=== PATIENT | male | born 1930 | race Caucasian/White ===

== ENCOUNTER 2016-09-28 12:09 | Observation (INO) ==
--- NOTE | 2016-09-28 12:40 | Emergency Department Note ---
Disposition Clinical Impression: Lumbar back pain Qualifiers: Chronicity: chronic Back pain laterality: midline Sciatica presence: without sciatica Qualified Code(s): M54.5 - Low back pain Disposition: Admitted As Inpatient Condition: Good Back Pain HPI - General Chief Complaint: ED Back Pain/Injury Stated Complaint: increased back pain Time Seen by Provider: 09/28/16 12:15 Source: patient, family Mode of arrival: ambulatory Limitations: no limitations Nursing Notes Reviewed: Yes Vital Signs Reviewed: Yes - History of Present Illness HPI Narrative: 86-year-old male with history of low back pain, hypertension, hyperlipidemia presents for evaluation of acute on chronic back pain. Patient states that he has surgery scheduled this Wednesday. Notes the pain is worsened and he cannot perform his activities daily living at home with his current pain management. Patient states that he has been taking Percocet 5 mg every 6 hours to help with his pain. Patient now requires to ambulate with the assistance of a walker. Patient states he also has been crawling around his house in order to try and cope with the pain. Patient states that the pain has worsened because he has been more active recently. Patient denies any numbness or tingling of his lower legs. Denies any chest measures of breath. No nausea or vomiting. Patient states that he was seen here last Wednesday was given parenteral pain medication which seemed to help. Denies any saddle anesthesia is no bowel or bladder incontinence. No fevers. Patient is requesting admission for pain control. - Related Data Home Medications Medication Instructions Recorded Confirmed Ascorbic Acid [Vitamin C] 1,000 mg PO DAILY 05/03/15 05/03/15 Aspirin Enteric Coated [Aspirin EC] 81 mg PO DAILY 05/03/15 05/03/15 Calcitonin Nasal [place] [Miacalcin 1 spray NS DAILY 05/03/15 05/03/15 Nasal [place]] Calcium Carbonate/Vitamin D3 1 tab PO BID 05/03/15 05/03/15 [Calcium 600 + D Tablet] Captopril [Capoten] 6.25 mg PO DAILY 05/03/15 05/03/15 DiphenhydraMINE [Benadryl] 25 mg PO HS PRN 05/03/15 05/03/15 Docusate [Colace] 400 mg PO DAILY PRN 05/03/15 05/03/15 Gabapentin [Neurontin] 100 mg PO DAILY 05/03/15 05/03/15 Multivitamin [Multi-Day Vitamins] 1 tab PO DAILY 05/03/15 05/03/15 Omega3,5,6,7,9 No.1/[place] Oil 1 cap PO BID 05/03/15 05/03/15 [Complete [place] Softgel] Omeprazole [PriLOSEC] 20 mg PO BID 05/03/15 05/03/15 Ranitidine HCl [Zantac] 150 mg PO BID 05/03/15 05/03/15 Simvastatin [Zocor] 40 mg PO QPM 05/03/15 05/03/15 Terazosin [Hytrin] 10 mg PO DAILY 05/03/15 05/03/15 Previous Rx's Medication Instructions Recorded Levofloxacin [Levaquin] 750 mg PO DAILY #7 tablet 05/05/15 OxyCODONE/APAP 5/325 [Percocet 1 each PO Q6HR PRN #25 tablet 09/26/16 5/325 MG] Allergies Allergy/AdvReac Type Severity Reaction Status Date / Time No Known Allergies Allergy Verified 05/03/15 09:29 All systems ED: reviewed and negative except as stated. Constitutional: Reports: as per HPI. Denies: fever Eyes: Reports: as per HPI ENT ED: Reports: as per HPI Cardiovascular: Reports: as per HPI. Denies: chest pain Respiratory: Reports: as per HPI. Denies: dyspnea Gastrointestinal: Reports: as per HPI. Denies: nausea, vomiting Genitourinary: Reports: as per HPI Musculoskeletal: Reports: as per HPI, back pain Integumentary: Reports: as per HPI Neurological: Reports: as per HPI Psychiatric: Reports: as per HPI Endocrine: Reports: as per HPI Hematological/Lymphatic: Reports: as per HPI Past Medical History - Past Medical History Medical history: Reports: other Surgical history: Reports: cataract, herniorrhaphy, hip replacement, orthopedic , other, vasectomy, other Psychiatric history: Reports: no psych history - Social History Smoking Status: Never smoker Smokeless Tobacco Status: Yes Alcohol use: Reports: none Drug use: Reports: none Physical Exam - General Limitations: no limitations General appearance: alert, in no apparent distress - Head Head exam: atraumatic, normocephalic, normal inspection - Eye Eye exam: Present: normal appearance, EOMI - ENT ENT exam: normal exam, mucous membranes moist - Neck Neck exam: Present: normal inspection, trachea midline - Chest Chest inspection: Present: normal inspection, symmetric chest wall rise - Respiratory Respiratory exam: Present: normal lung sounds bilaterally. Absent: respiratory distress - Cardiovascular Cardiovascular exam: Present: regular rate, normal rhythm - Abdominal Exam Abdominal exam: Present: soft, Non-Tender - Extremities Exam Extremities exam: Present: normal inspection. Absent: pedal edema - Back Exam Back exam: Present: normal inspection, tenderness (Lower midline lumbar tenderness without step-offs or deformities). Absent: muscle spasm, paraspinal tenderness - Neurological Exam Neurological exam: Present: alert, oriented X3, CN II-XII intact - Expanded Neurological Exam Motor strength - LUE: 5/5 Motor strength - RUE: 5/5 Motor strength - LLE: 5/5 Motor strength - RLE: 5/5 Sensory exam lower extremity: light touch: Normal Course Course Narrative: Patient seen and examined upon arrival. Patient's pain was initially addressed with Dilaudid. Patient notes some relief with that. Patient has a care transition coordinator next 2 days. We will attempt pain control as well as talk with the patient's spine surgeon for possible admission pain control - Consultations Consultation #1: With Dr. Humphrey who stated that patient can be admitted to the hospitalist service for intractable back pain and he will evaluate the patient. Time: 14:31 Vital Signs Temperature 97.8 F 09/28/16 12:09 Pulse Rate 66 09/28/16 12:09 Respiratory Rate 18 09/28/16 12:09 Blood Pressure 154/79 09/28/16 12:09 O2 Sat by Pulse Oximetry 97 09/28/16 12:09 Temperature 97.8 F 09/28/16 12:09 Pulse Rate 67 09/28/16 14:33 Respiratory Rate 18 09/28/16 12:09 Blood Pressure 191/96 09/28/16 14:33 O2 Sat by Pulse Oximetry 98 09/28/16 14:33 Oxygen Delivery Oxygen Delivery Room Air SRimma - Pavan.AViolette Situation: Demographics Background: Presenting Complaint Assessment: Vital Signs, Course and respsone to treatment, Patient/Family Expectation Recommendation: Barrier(s) to disposition, Recommendation based on pending studies, treatments, or consults S.B.Wilmer Report Given to: Dr. Elena Huitron. Repor Time: 14:40
[2016-09-28] MEDS ORDERED: *HR* HYDROmorphone (PF) 1 MG/ML SYRINGE IVP ONE ×2 (12:42→14:15)
--- NOTE | 2016-09-28 13:47 | Emergency Department Note ---
START Narrative - START START: I examined this patient and my medical decision-making was reviewed with the FURNITURE FINISHER/PA/Advanced Practice Nurse/Resident Physician. I agree with the documented findings, disposition and treatment plan as described except to the extent set forth below. ED attending note: Patient seen with emergency medicine resident Dr De La O. We independently evaluated the patient. We independently had [id number] contact with the patient. Please see a copy of his note for details of the history and physical, evaluation, management and disposition of this emergency Department patient. Briefly: A 86-year-old male history of chronic low back pain, has a scheduled surgery of laminectomy by Dr. Humphrey this Wednesday on September 30 presents with unrelenting low back pain. Despite being treated with oxycodone at home. Was seen yesterday in the emergency department and treated by the physician processing assistant Chago Clark. Please see copy of this chart for details of that encounter. There has been no interim changes in bowel or bladder habits were new neurologic focality or new signs. Patient was given parenteral Dilaudid here. We will consult Dr. Humphrey and advocate for admission for intractable pain. Disposition pending.
[2016-09-28] MEDS ORDERED: Naloxone 0.4 MG/ML INJ IVP PRN (14:50)
--- NOTE | 2016-09-28 14:50 | Internal Med History&Physical ---
Date of Encounter: 09/28/16 Time of Encounter: 14:49 Assessment and Plan (1) Intractable back pain Current visit: Yes Status: Acute 2/2 lumbar radiculopathy. Scheduled for laminectomy on 09/[address] Humphrey. Patient being admitted for inadequate pain control at home. will start IV morphine for severe pain and norco for moderate pain. DVT prophylaxis. will consult DR. Humphrey for further recommendations. (2) Hypothyroid Current visit: Yes Status: Acute continue home meds Qualifiers: Hypothyroidism type: unspecified Qualified Code(s): E03.9 - Hypothyroidism , unspecified (3) Lumbar radiculopathy Current visit: No Status: Acute as in back pain Internal Medicine - H&P: HPI Chief complaint: back pain Admitted From: Home Plans for Post Hospital Care: Home History of present illness: Mr. Mcgregor is a 86 year old male with history of low back pain, hypertension, hyperlipidemia presents for evaluation of acute on chronic back pain. Patient states that he has laminectomy scheduled this Wednesday. Notes the pain is worsened and he cannot perform his activities daily living at home with his current pain management. Patient states that he has been taking Percocet 5 mg every 6 hours to help with his pain. Patient now requires to ambulate with the assistance of a walker. Patient states he also has been crawling around his house in order to try and cope with the pain. Patient states that the pain has worsened because he has been more active recently. Patient denies any numbness or tingling of his lower legs. Denies any chest measures of breath. No nausea or vomiting. Patient states that he was seen here last Wednesday was given parenteral pain medication which seemed to help. Denies any saddle anesthesia is no bowel or bladder incontinence. No fevers. Patient is requesting admission for pain control. Past Med Surg Social Fam HX - Past Medical History Medical history: other Psychiatric history: no psych history - Past Surgical History Surgical History: cataract, herniorrhaphy, hip replacement, orthopedic, other, vasectomy, other - Social History Smoking Status: Never smoker Smokeless Tobacco Status: Yes Alcohol use: none Drug use: none - Family History Mother Living Status: Hx Family Cancer: Yes Father Living Status: Hx Family Cancer: Yes (Prostate Cancer) Internal Medicine - H&P: Meds Aspirin Enteric Coated [Aspirin EC] 81 mg PO DAILY 05/03/15 [History] Calcitonin Nasal [place] [Miacalcin Nasal [place]] 1 spray NS DAILY 05/03/15 [ History] Captopril [Capoten] 6.25 mg PO HS 05/03/15 [History] Gabapentin [Neurontin] 100 mg PO QAM 05/03/15 [History] Multivitamin [Multi-Day Vitamins] 1 tab PO DAILY 05/03/15 [History] Omega3,5,6,7,9 No.1/[place] Oil [Complete [place] Softgel] 1 cap PO DAILY 05/03/15 [History] Omeprazole [PriLOSEC] 20 mg PO BID 05/03/15 [History] Ranitidine HCl [Zantac] 150 mg PO DAILY PRN 05/03/15 [History] Simvastatin [Zocor] 40 mg PO QPM 05/03/15 [History] Terazosin [Hytrin] 10 mg PO HS 05/03/15 [History] OxyCODONE/APAP 5/325 [Percocet 5/325 MG] 1 each PO Q6HR PRN #25 tablet 09/26/16 [Rx] Acetaminophen [Tylenol] 500 mg PO Q6H PRN MDD 1000 mg 09/28/16 [History] Calcium Carbonate [Tums] 1,000 mg PO Q4HR PRN 09/28/16 [History] Cholecalciferol (Vitamin D3) [Vitamin D] 600 unit PO DAILY 09/28/16 [History] Ferrous Sulfate 325 mg PO DAILY 09/28/16 [History] Finasteride [Proscar] 5 mg PO DAILY 09/28/16 [History] Levothyroxine [Synthroid] 12.5 mcg PO QAM 09/28/16 [History] Vit C/Vit E/Lutein/Min/[place]-3 [Ocuvite Softgel] 1 each PO BID 09/28/16 [History ] Allergies No Known Allergies Allergy (Verified 05/03/15 09:29) All Systems PM: A 10-system review of systems was performed and is negative for pertinent findings except as documented above in the HPI. - Constitutional Vitals: Temp Pulse Resp BP Pulse Ox 97.8 F 67 18 191/96 98 09/28/16 12:09 09/28/16 14:33 09/28/16 12:09 09/28/16 14:33 09/28/16 14:33 General appearance: Present: A&O X 3, no acute distress Exam: Neck supple. Chest bilateral clear, no added sounds. CVS S1-S2, no murmurs rubs or gallops. Abdomen soft, nontender, bowel tones are present. back exam- tenderness lumbar spine, decreased rom, no obvious deformity Extremities no edema.
[2016-09-28] MEDS: *HR* Morphine 2 MG/ML SYRINGE IVP PRN (15:52)
[2016-09-28] MEDS: *HR* HYDROcodone/Acet 5/325 mg TABLET PO PRN (16:42)
[2016-09-29] MEDS: *HR* HYDROcodone/Acet 5/325 mg TABLET PO PRN ×4 (02:31→20:48)
[2016-09-29 05:13] LABS: Basophils % 0.2 %; Eosinophils # 0.3 K/mcL (0.0-0.6); Eosinophils % 5.4 %; Hematocrit 35.9 % (37.5-50.1); Hemoglobin 12.4 g/dL (12.9-16.9); Immature Granulocytes % 0.2 % (0-4); Lymphocytes % 17.9 %; Mean Corpuscular HGB Conc 34.5 g/dL (31.6-35.5); Mean Corpuscular Hemoglobin 32.6 pg (28.0-33.3); Mean Corpuscular Volume 94.5 fL (83.0-100.0); Mean Platelet Volume 8.6 fL (9.4-12.4); Monocytes # 0.5 K/mcL (0.0-1.3); Monocytes % 9.8 %; Neutrophils # 3.7 K/mcL (1.6-8.9); Platelet Count 211 K/mcL (140-400); Red Cell Distribution Width 12.4 % (11.5-14.5); Segmented Neutrophils % 66.5 %
[2016-09-29 05:37] LABS: BUN/Creatinine Ratio 15 (6-26); Blood Urea Nitrogen 13 mg/dL (8-26); Carbon Dioxide 27 mEq/L (19-29); Chloride 99 mEq/L (98-109); Glucose 103 mg/dL (70-99); Osmolality,Calculated 276 (280-300); Sodium 133 mEq/L (136-145); eGFR For African Americans > 60 (> 60); eGFR For Non-African Americans > 60 (> 60)
[2016-09-29] MEDS: *HR* Enoxaparin 30 MG/0.3 ML SYRINGE SQ SCH (06:25)
[2016-09-29] MEDS: Gabapentin 100 MG CAPSULE PO SCH (09:39)
[2016-09-29] MEDS: Aspirin Enteric Coated 81 MG Tablet PO SCH (09:39)
[2016-09-29] MEDS: *HR* Morphine 2 MG/ML SYRINGE IVP PRN (11:14)
[2016-09-29] MEDS ORDERED: ceFAZolin 2,000 MG in D5% in Water (Mini-Bag+) 100 ML IVPB ONE (11:54)
--- NOTE | 2016-09-29 11:54 | Spine Progress Note ---
Date of Encounter: 09/29/16 Time of Encounter: 11:51 - Assessment and Plan (1) Lumbar stenosis with neurogenic claudication Current Visit: Yes Status: Chronic We will plan to perform elective lumbar decompression in a.m. 09/30/2016. We will do routine preoperative planning including NPO and preoperative antibiotics. The patient understands and is willing to proceed. He understands that this will be dependent on clearance from the hospitalist service. Subjective Principal diagnosis: Lumbar stenosis, back pain Interval history: Mr. Mcgregor is an 86-year-old gentleman well known to the practice who came to the emergency department 2 times in the past week with intractable back pain. This interfered with his functional activities and ability to ambulate. Due to severe pain he was admitted for pain control. He is scheduled for surgical intervention 09/30/2016. This is before form of a laminectomy and decompression lumbar. Objective Vital signs: Vital Signs Temp Pulse Resp BP Pulse Ox 09/29/16 10:33 97.4 F L 60 14 122/69 97 09/29/16 06:35 98.1 F 53 14 134/69 95 09/29/16 04:27 98.5 F 54 14 137/71 95 09/29/16 00:00 98.7 F 58 14 146/71 96 09/28/16 21:04 98.3 F 57 14 137/72 94 09/28/16 15:10 98.0 F 67 14 181/89 97 09/28/16 14:57 0 0/0 Intake and Output 09/28/16 09/29/16 09/29/16 23:59 07:59 15:59 Intake Total 450 / 450 Output Total 300 / 300 450 / 450 50 / 50 Balance 150 / 150 -450 / -450 -50 / -50 Intake: Oral 450 / 450 Output: Urine 300 / 300 450 / 450 50 / 50 Other: Blood Glucose* 87 97 89 - Labs CBC & BMP: 09/29/16 04:47 09/29/16 04:47 Labs: Abnormal lab results RBC 3.80 M/mcL (4.19-5.50) L 09/29/16 04:47 Hgb 12.4 g/dL (12.9-16.9) L 09/29/16 04:47 Hct 35.9 % (37.5-50.1) L 09/29/16 04:47 MPV 8.6 fL (9.4-12.4) L 09/29/16 04:47 Sodium 133 mEq/L (136-145) L 09/29/16 04:47 Glucose 103 mg/dL (70-99) H 09/29/16 04:47 Calculated Osmolality 276 (280-300) L 09/29/16 04:47 Consult Discharge Plan - Plan Referrals: Kapil Boothe DO [Primary Care Provider] -
--- NOTE | 2016-09-29 16:26 | Internal Med Progress Note ---
Date of Encounter: 09/29/16 Time of Encounter: 15:00 - Assessment and plan (1) Lumbar stenosis with neurogenic claudication Current Visit: Yes Status: Chronic Assessment and plan: Patient presents with severe lumbar back pain not controlled with oral medications at home. Appreciate neurosurgery input. Plan for elective lumbar decompression tomorrow. received IV Morphine this morning. continue IV morphine, gabapentin, and norco as needed. (2) Constipation Current Visit: Yes Status: Acute Assessment and plan: start colace. Qualifiers: Constipation type: unspecified constipation type Qualified Code(s): K59.00 - Constipation, unspecified (3) HTN (hypertension) Current Visit: Yes Status: Chronic Assessment and plan: bp is adequate. continue home dose of captopril. Qualifiers: Hypertension type: essential hypertension Qualified Code(s): I10 - Essential (primary) hypertension (4) Hypothyroid Current Visit: Yes Status: Chronic Assessment and plan: resume home dose. Qualifiers: Hypothyroidism type: unspecified Qualified Code(s): E03.9 - Hypothyroidism , unspecified - Subjective Interval history: patient reports constipation. his back pain is controlled with meds. - Constitutional Vitals: Temp Pulse Resp BP Pulse Ox 98.6 F 57 16 145/71 95 09/29/16 15:35 09/29/16 15:35 09/29/16 15:35 09/29/16 15:35 09/29/16 15:35 General appearance: Present: cooperative, A&O X 3, pleasant, no acute distress, answers questions appropriately - Respiratory Respiratory exam: Present: CTAB - Cardiovascular Cardiovascular exam: Present: RRR - GI/Abdominal GI/Abdominal exam: Present: normal bowel sounds, soft. Absent: distended, tenderness - Extremities Exam Extremities exam: Absent: pedal edema - Back Exam Back exam: Absent: CVA tenderness (L), CVA tenderness (R) - Neurological Exam Neurological exam: Present: alert, oriented X3, no focal deficits, strengths equal and symetr throughout. Absent: facial droop, speech deficit - Skin Skin exam: Absent: rash Internal Medicine: Result - Labs CBC & Chem 7: 09/29/16 04:47 09/29/16 04:47 Labs: Short CBC 09/29/16 Range/Units 04:47 WBC 5.5 (4.3-11.1) K/mcL Hgb 12.4 L (12.9-16.9) g/dL Hct 35.9 L (37.5-50.1) % Plt Count 211 (140-400) K/mcL Neutrophils # 3.7 (1.6-8.9) K/mcL [facility] 09/29/16 04:47 Sodium 133 L Potassium 4.0 Chloride 99 Carbon Dioxide 27 BUN 13 Creatinine 0.85 Glucose 103 H Calcium 9.0 - VTE Documentation of Mechanical Device: Intermittent pneumatic compression device Consult Discharge Plan - Plan Referrals: Kapil Boothe DO [Primary Care Provider] -
[2016-09-30] MEDS: *HR* Morphine 2 MG/ML SYRINGE IVP PRN ×4 (00:15→15:05)
[2016-09-30] MEDS: *HR* Enoxaparin 30 MG/0.3 ML SYRINGE SQ SCH (06:21)
[2016-09-30 06:24] LABS: Basophils % 0.4 %; Eosinophils # 0.4 K/mcL (0.0-0.6); Eosinophils % 8.2 %; Hematocrit 36.6 % (37.5-50.1); Hemoglobin 12.3 g/dL (12.9-16.9); Immature Granulocytes % 0.2 % (0-4); Lymphocytes # 0.9 K/mcL (0.6-4.6); Lymphocytes % 18.9 %; Mean Corpuscular HGB Conc 33.6 g/dL (31.6-35.5); Mean Corpuscular Hemoglobin 31.8 pg (28.0-33.3); Mean Corpuscular Volume 94.6 fL (83.0-100.0); Mean Platelet Volume 8.5 fL (9.4-12.4); Monocytes # 0.5 K/mcL (0.0-1.3); Monocytes % 9.5 %; Neutrophils # 3.1 K/mcL (1.6-8.9); Platelet Count 233 K/mcL (140-400); Red Blood Count 3.87 M/mcL (4.19-5.50); Red Cell Distribution Width 12.5 % (11.5-14.5); Segmented Neutrophils % 62.8 %
[2016-09-30] MEDS ORDERED: Levothyroxine 25 MCG TABLET PO SCH (06:30)
[2016-09-30 06:40] LABS: BUN/Creatinine Ratio 21 (6-26); Blood Urea Nitrogen 19 mg/dL (8-26); Carbon Dioxide 29 mEq/L (19-29); Chloride 100 mEq/L (98-109); Glucose 97 mg/dL (70-99); Osmolality,Calculated 282 (280-300); Potassium 4.1 mEq/L (3.5-4.5); Sodium 135 mEq/L (136-145); eGFR For African Americans > 60 (> 60); eGFR For Non-African Americans > 60 (> 60)
[2016-09-30] MEDS: Aspirin Enteric Coated 81 MG Tablet PO SCH (07:37)
[2016-09-30] MEDS: Gabapentin 100 MG CAPSULE PO SCH (07:37)
--- NOTE | 2016-09-30 09:49 | Anesthesia Evaluation PreOp ---
Date of Encounter: 09/30/16 Time of Encounter: 09:47 - Past History Planned Operation: L3-5 Laminectomy Cardiac History: HTN, Hyperlipidemia, Other (Aortic stenosis (mod with ELISABET 1.03 cm^2)) Pulmonary History: Denies Any Significant HX DISTRICT WIRE CHIEF History: Denies Any Significant HX Other Medical History: Bleeding Anesthesia History: No Prior Anesthetic Complications Alcohol Use: none Drug use: none Medications and Allergies Aspirin Enteric Coated [Aspirin EC] 81 mg PO DAILY 05/03/15 [History] Calcitonin Nasal [place] [Miacalcin Nasal [place]] 1 spray NS DAILY 05/03/15 [ History] Captopril [Capoten] 6.25 mg PO HS 05/03/15 [History] Gabapentin [Neurontin] 100 mg PO QAM 05/03/15 [History] Multivitamin [Multi-Day Vitamins] 1 tab PO DAILY 05/03/15 [History] Omega3,5,6,7,9 No.1/[place] Oil [Complete [place] Softgel] 1 cap PO DAILY 05/03/15 [History] Omeprazole [PriLOSEC] 20 mg PO BID 05/03/15 [History] Ranitidine HCl [Zantac] 150 mg PO DAILY PRN 05/03/15 [History] Simvastatin [Zocor] 40 mg PO QPM 05/03/15 [History] Terazosin [Hytrin] 10 mg PO HS 05/03/15 [History] OxyCODONE/APAP 5/325 [Percocet 5/325 MG] 1 each PO Q6HR PRN #25 tablet 09/26/16 [Rx] Acetaminophen [Tylenol] 500 mg PO Q6H PRN MDD 1000 mg 09/28/16 [History] Calcium Carbonate [Tums] 1,000 mg PO Q4HR PRN 09/28/16 [History] Cholecalciferol (Vitamin D3) [Vitamin D] 600 unit PO DAILY 09/28/16 [History] Ferrous Sulfate 325 mg PO DAILY 09/28/16 [History] Finasteride [Proscar] 5 mg PO DAILY 09/28/16 [History] Levothyroxine [Synthroid] 12.5 mcg PO QAM 09/28/16 [History] Vit C/Vit E/[place]in/Min/[place]-3 [Ocuvite Softgel] 1 each PO BID 09/28/16 [History ] Allergies No Known Allergies Allergy (Verified 05/03/15 09:29) - Meds/Allergy Pre-op Review Medications Reviewed: Yes Allergies Reviewed: Yes Beta Blockers on Current Med List: No Anesthesia Results - Labs 09/30/16 05:52 09/30/16 05:52 - Imaging EKG: report reviewed, image reviewed (SR; anteroseptal TN of indeterminant age) Additional studies: 09-11-16 TTE: LVEF 60-65% Mild conc LVH mild LV diastolic dysfunction mildly dilated LA mildly dilated RA AV not well visualized mod mild AR no pulm htn Anesthesia Exam Last Vital Signs Temp 97.9 F 09/30/16 07:12 Pulse 65 09/30/16 07:12 Resp 18 09/30/16 07:12 BP 147/70 09/30/16 07:12 Pulse Ox 96 09/30/16 07:12 Weight: 68 kg NPO (# of Hours): >> 8 hrs - HEENT Pupil (Motor): Pupils equal, EOMI Mallampati: II Teeth: Normal Oral Opening: Greater than 3 - DISTRICT WIRE CHIEF LOC: Oriented DISTRICT W[employer] CHIEF Motor: Normal RUE, Normal LUE, Normal RLE, Normal LLE, Normal Face - Cardiac Rhythm: Regular Murmur: Systolic - Pulmonary Breath Sounds: bilateral Clear Respiratory Effort: Symmetrical Anesthesia Assess/Plan ASA Score: 3 Modified Aiden Scale for Level of Consciousness: Cooperative, oriented, and tranquil Anesthetic Plan: General Monitoring Plan: Standard Monitors, A-Line Recovery Plan: PACU
[2016-09-30] MEDS ORDERED: Heparin 1,000 UNITS/500 mL NS 500 ML ONE (10:03)
[2016-09-30] MEDS ORDERED: *HR* HYDROmorphone (PF) 1 MG/ML SYRINGE IVP PRN (11:20)
--- NOTE | 2016-09-30 11:20 | Anesthesia Procedures ---
Date of Encounter: 09/30/16 Time of Encounter: 10:00 Procedures: Anesthesia - Arterial Line Consent obtained: written consent Time out performed: Yes Sedation: Versed (mg): 0 Sedation: Fentanyl (mcg): 0 Supplemental Oxygen via Nasal Cannula (L/min): 2 Local Anesthetic: Lidocaine 1% Size (Gauge): 20 Length (inches): 1 3/4 Technique Used: sterile prep, guide wire technique Post-Procedure: line taped into place, dry sterile dressing placed Patient tolerated procedure: well, no complications Complications: none Site: Radial L
--- NOTE | 2016-09-30 12:23 | Orthopedic Operative Note ---
Date of procedure: 09/30/16 Pre-op diagnosis: Lumbar stenosis, lumbar radiculopathy Post-op diagnosis: same Operation/Findings: Laminectomy L3-L5: The patient was brought to the operative theater where he underwent general endotracheal anesthesia. He was given antibiotics prior to the start of the procedure. Compression boots and stockings were used for deep vein thrombosis prophylaxis. The patient was placed prone on a Mika table. The back was prepped and draped in the usual sterile fashion. An incision was marked and centered over the L3-L5 interspaces in the midline. We used Bovie cautery to make an incision and then this incision was deepened through the lumbar fascia. Bovie cautery and Quinteros elevators were used to reflect the paraspinal musculature to the lateral extent of the L3-4 and L4-5 facet joints bilaterally. Kristy clamps were placed over the spinous processes of L4 and L5 and an intraoperative lateral fluorograph was obtained. A discusssion was held between the radiologist and surgeon who both confirmed we were at the correct operative level. We then removed the supraspinous and interspinous ligaments between L4 and L5 and subsequently removed the ligamentum flavum from its origin on the distal undersurface of the L4 lamina. The ligamentum flavum was noted to be quite hypertrophied as well as the L4-L5 facets were hypertrophied. This required performing a laminectomy of L4 with partial medial facetectomies including undercutting of the L4-L5 facets to decompress the lateral recesses. We moved proximally to the L3-4 level and again removed intervening ligamentum flavum, undercut the L3-4 facets, and performed a partial L3 laminectomy. After the decompression was complete we checked the foramen and the traversing nerve roots at L3-4 and L4-5 and they were found to be free and patent. We copiously irrigated the wound and then closed the wound in layers with 1 Vicryl for the fascia, 2-0 Vicryl for the subcutaneous tissue, and Dermabond was used for skin closure. Sterile dressings were placed over the wound, the patient was turned supine in a hospital bed, and was extubated in the operative theater. All sponge needles and instrument counts were correct at the end of the procedure. The patient tolerated the procedure well without complications. Anesthesia: GETA Surgeon: Ike Humphrey Jr Estimated blood loss (cc): 40 Condition: stable Disposition: PACU
--- NOTE | 2016-09-30 13:15 | Anesthesia Evaluation Post Op ---
Date of Encounter: 09/30/16 Time of Encounter: 13:14 - Vital Signs Vital Signs: vss - Lungs Lungs: Clear Ascult./Percussion - Airway Airway: Non-obstructed - Cardiovascular Baseline Rhythm - Mental Status Mental Status: Alert & Oriented, Answers Appropriately - Pain Pain Scale used: Guerrero-Bennett (Faces) (tolerable) - Nausea Vomiting Nausea Vomiting: Not Present - Hydration Hydration: Ice chips - Discharge PostOp Status: Transfer Patient to floor
[2016-09-30] MEDS ORDERED: Ringers Solution, Lactated 1,000 ML IVC SCH (13:34)
[2016-09-30] MEDS ORDERED: Naloxone 0.4 MG/ML INJ IVP PRN (13:34)
[2016-09-30] MEDS ORDERED: Acetaminophen 325 MG TABLET PO PRN (13:34)
[2016-09-30] MEDS: *HR* OxyCODONE Immed Rel 5 MG TABLET PO PRN ×2 (13:55→22:07)
--- NOTE | 2016-09-30 17:39 | Internal Med Progress Note ---
Date of Encounter: 09/30/16 Time of Encounter: 17:37 - Assessment and plan (1) Lumbar stenosis with neurogenic claudication Current Visit: Yes Status: Chronic Assessment and plan: Patient presents with severe lumbar back pain not controlled with oral medications at home. Appreciate neurosurgery input. Patient underwent lumbar laminectomy L4-L5. received IV Morphine post-op this afternoon. continue IV morphine, gabapentin, and norco as needed. (2) Constipation Current Visit: Yes Status: Acute Assessment and plan: laxatives Qualifiers: Constipation type: unspecified constipation type Qualified Code(s): K59.00 - Constipation, unspecified (3) HTN (hypertension) Current Visit: Yes Status: Chronic Assessment and plan: bp is adequate. continue home dose of captopril. Qualifiers: Hypertension type: essential hypertension Qualified Code(s): I10 - Essential (primary) hypertension (4) Hypothyroid Current Visit: Yes Status: Chronic Assessment and plan: resume home dose. Qualifiers: Hypothyroidism type: unspecified Qualified Code(s): E03.9 - Hypothyroidism , unspecified - Subjective Interval history: patient underwent laminectomy L3-L5 this morning, he would like to sit on the chair. - Constitutional Vitals: Temp Pulse Resp BP Pulse Ox 97.4 F L 79 18 132/79 92 09/30/16 14:44 09/30/16 14:44 09/30/16 14:44 09/30/16 14:44 09/30/16 17:30 General appearance: Present: cooperative, A&O X 3, pleasant, no acute distress, answers questions appropriately - Respiratory Respiratory exam: Present: CTAB - Cardiovascular Cardiovascular exam: Present: RRR, systolic murmur - GI/Abdominal GI/Abdominal exam: Present: distended, normal bowel sounds, soft. Absent: tenderness - Extremities Exam Extremities exam: Absent: pedal edema - Neurological Exam Neurological exam: Present: alert, oriented X3, no focal deficits, strengths equal and symetr throughout. Absent: facial droop, speech deficit Internal Medicine: Result - Labs CBC & Chem 7: 09/30/16 05:52 09/30/16 05:52 Labs: Short CBC 09/30/16 Range/Units 05:52 WBC 4.9 (4.3-11.1) K/mcL Hgb 12.3 L (12.9-16.9) g/dL Hct 36.6 L (37.5-50.1) % Plt Count 233 (140-400) K/mcL Neutrophils # 3.1 (1.6-8.9) K/mcL BMP 09/30/16 05:52 Sodium 135 L Potassium 4.1 Chloride 100 Carbon Dioxide 29 BUN 19 Creatinine 0.91 Glucose 97 Calcium 9.0 - VTE Documentation of Mechanical Device: Intermittent pneumatic compression device Consult Discharge Plan - Plan Referrals: Maxine Wilson, PAC [Physician Church Business Administrator] - 10/13/16 1:45 pm Kapil Boothe, DO [Primary Care Provider] -
[2016-09-30] MEDS ORDERED: NON-FORMULARY MEDICATION 1 EACH EACH (Vit C/Vit E/Lutein/Min/Omega-3 [Ocuvite Softgel] 1 E PO SCH (21:00)
[2016-09-30] MEDS: Sennosides/Docusate Sodium TABLET PO SCH (22:03)
[2016-09-30] MEDS: ceFAZolin 2,000 MG in D5% in Water 100 ML IVPB SCH (22:12)
[2016-10-01] MEDS: Famotidine 20 MG TABLET PO PRN ×2 (00:01→20:57)
[2016-10-01 03:38] LABS: Basophils % 0.1 %; Eosinophils # 0.1 K/mcL (0.0-0.6); Eosinophils % 1.7 %; Hematocrit 33.2 % (37.5-50.1); Hemoglobin 11.6 g/dL (12.9-16.9); Immature Granulocytes % 0.4 % (0-4); Lymphocytes # 0.9 K/mcL (0.6-4.6); Lymphocytes % 11.9 %; Mean Corpuscular HGB Conc 34.9 g/dL (31.6-35.5); Mean Corpuscular Hemoglobin 32.9 pg (28.0-33.3); Mean Corpuscular Volume 94.1 fL (83.0-100.0); Mean Platelet Volume 8.7 fL (9.4-12.4); Monocytes # 0.8 K/mcL (0.0-1.3); Neutrophils # 5.4 K/mcL (1.6-8.9); Platelet Count 212 K/mcL (140-400); Red Blood Count 3.53 M/mcL (4.19-5.50); Red Cell Distribution Width 12.3 % (11.5-14.5); Segmented Neutrophils % 74.9 %
[2016-10-01] MEDS: ceFAZolin 2,000 MG in D5% in Water 100 ML IVPB SCH (04:25)
[2016-10-01] MEDS: *HR* OxyCODONE Immed Rel 5 MG TABLET PO PRN ×2 (04:38→11:09)
[2016-10-01] MEDS ORDERED: OMEGA 3 FISH OIL PO SCH (09:00)
[2016-10-01] MEDS ORDERED: CALCITONIN NS SCH (09:00)
[2016-10-01] MEDS: Multivit/Ca/Min/Fe/FA 1 TAB TABLET PO SCH (09:16)
[2016-10-01] MEDS: Sennosides/Docusate Sodium TABLET PO SCH ×2 (09:16→20:57)
[2016-10-01] MEDS: Finasteride 5 MG TABLET PO SCH (09:16)
[2016-10-01] MEDS: Cholecalciferol (D-3) 1,000 UNIT TABLET PO SCH (09:16)
[2016-10-01] MEDS: Levothyroxine 25 MCG TABLET PO SCH (09:17)
[2016-10-01] MEDS: *HR* Morphine 2 MG/ML SYRINGE IVP PRN ×2 (09:33→21:07)
--- NOTE | 2016-10-01 15:29 | Internal Med Progress Note ---
Date of Encounter: 10/01/16 Time of Encounter: 15:26 - Assessment and plan (1) Lumbar stenosis with neurogenic claudication Current Visit: Yes Status: Chronic Assessment and plan: Patient presents with severe lumbar back pain not controlled with oral medications at home. Appreciate neurosurgery input. 09/30: Patient underwent lumbar laminectomy L4-L5. received IV Morphine 2 mg this morning. continue IV morphine, gabapentin, and norco as needed. PT/OT recommends ECF. (2) Constipation Current Visit: Yes Status: Acute Assessment and plan: laxatives Qualifiers: Constipation type: unspecified constipation type Qualified Code(s): K59.00 - Constipation, unspecified (3) HTN (hypertension) Current Visit: Yes Status: Chronic Assessment and plan: bp is adequate. continue home dose of captopril. Qualifiers: Hypertension type: essential hypertension Qualified Code(s): I10 - Essential (primary) hypertension (4) Hypothyroid Current Visit: Yes Status: Chronic Assessment and plan: resume home dose. Qualifiers: Hypothyroidism type: unspecified Qualified Code(s): E03.9 - Hypothyroidism , unspecified - Subjective Interval history: patient complains of pain on his lower back that is controlled with medications. - Constitutional Vitals: Temp Pulse Resp BP Pulse Ox 98.4 F 74 18 152/67 91 10/01/16 14:27 10/01/16 14:27 10/01/16 14:27 10/01/16 14:27 10/01/16 14:27 General appearance: Present: cooperative, A&O X 3, pleasant, no acute distress, answers questions appropriately - Respiratory Respiratory exam: Present: CTAB - Cardiovascular Cardiovascular exam: Present: RRR - GI/Abdominal GI/Abdominal exam: Present: normal bowel sounds, soft. Absent: distended, tenderness - Extremities Exam Extremities exam: Absent: pedal edema - Back Exam Back exam: Absent: CVA tenderness (L), CVA tenderness (R) - Neurological Exam Neurological exam: Present: alert, oriented X3, no focal deficits, strengths equal and symetr throughout. Absent: facial droop, speech deficit - Skin Skin exam: Absent: rash Internal Medicine: Result - Labs CBC & Chem 7: 10/01/16 03:07 09/30/16 05:52 Labs: Short CBC 10/01/16 Range/Units 03:07 WBC 7.2 (4.3-11.1) K/mcL Hgb 11.6 L (12.9-16.9) g/dL Hct 33.2 L (37.5-50.1) % Plt Count 212 (140-400) K/mcL Neutrophils # 5.4 (1.6-8.9) K/mcL - VTE Documentation of Mechanical Device: Graduated compression elastic hosiery Consult Discharge Plan - Plan Referrals: Maxine Wilson, PAC [Physician Developmental Services Worker] - 10/13/16 1:45 pm
--- NOTE | 2016-10-01 16:28 | Spine Progress Note ---
Date of Encounter: 10/01/16 Time of Encounter: 16:26 - Assessment and Plan (1) Lumbar stenosis with neurogenic claudication Current Visit: Yes Status: Chronic We will plan to perform elective lumbar decompression in a.m. 09/30/2016. We will do routine preoperative planning including NPO and preoperative antibiotics. The patient understands and is willing to proceed. He understands that this will be dependent on clearance from the hospitalist service. Subjective Principal diagnosis: Lumbar stenosis, back pain Interval history: Mr. Mcgregor is an 86-year-old gentleman well known to the practice who came to the emergency department 2 times in the past week with intractable back pain. This interfered with his functional activities and ability to ambulate. Due to severe pain he was admitted for pain control. He is scheduled for surgical intervention 09/30/2016. This is before form of a laminectomy and decompression lumbar. Continues with significant back pain requiring intravenous narcotics postoperative day 1. Afebrile vital signs stable. He is neurovascularly intact with regard to his bilateral lower extremities. Assessment stable with continued significant pain. Plan: Continue intravenous analgesics, mobilized, will likely need inpatient rehabilitation. Objective Vital signs: Vital Signs Temp Pulse Resp BP Pulse Ox 10/01/16 14:27 98.4 F 74 18 152/67 91 10/01/16 14:10 18 156/65 95 10/01/16 10:49 98.2 F 67 18 156/65 95 10/01/16 10:04 78 18 156/74 96 10/01/16 07:00 98.4 F 78 18 156/74 96 10/01/16 04:55 99.2 F 70 20 151/73 95 10/01/16 04:29 93 10/01/16 00:03 98.4 F 75 16 157/80 93 09/30/16 19:45 98.3 F 89 18 128/83 95 09/30/16 17:30 92 Intake and Output 10/01/16 10/01/16 10/01/16 07:59 15:59 23:59 Intake Total 120 / 120 120 / 120 Output Total 150 / 150 420 / 420 Balance -30 / -30 -300 / -300 Intake: Oral 120 / 120 120 / 120 Output: Urine 150 / 150 420 / 420 Other: Meal Lunch Percent of Meal Consumed 5% # Voids 1 Weight 63.503 kg Patient Weight 10/01/16 23:59 Weight 63.503 kg - Labs CBC & BMP: 10/01/16 03:07 09/30/16 05:52 Labs: Abnormal lab results RBC 3.53 M/mcL (4.19-5.50) L 10/01/16 03:07 Hgb 11.6 g/dL (12.9-16.9) L 10/01/16 03:07 Hct 33.2 % (37.5-50.1) L 10/01/16 03:07 MPV 8.7 fL (9.4-12.4) L 10/01/16 03:07 Sodium 135 mEq/L (136-145) L 09/30/16 05:52 Consult Discharge Plan - Plan Referrals: Maxine Wilson, PAC [Physician Decorator Store] - 10/13/16 1:45 pm
[2016-10-01] MEDS: Ondansetron 4 MG/2 ML VIAL IVP PRN (21:00)
[2016-10-02] MEDS: *HR* Morphine 2 MG/ML SYRINGE IVP PRN ×2 (01:40→06:22)
[2016-10-02] MEDS: *HR* OxyCODONE Immed Rel 5 MG TABLET PO PRN ×3 (03:49→15:08)
[2016-10-02] MEDS: Ondansetron 4 MG/2 ML VIAL IVP PRN (03:50)
[2016-10-02 03:58] LABS: Basophils % 0.1 %; Eosinophils # 0.1 K/mcL (0.0-0.6); Eosinophils % 1.2 %; Hematocrit 31.9 % (37.5-50.1); Hemoglobin 11.1 g/dL (12.9-16.9); Immature Granulocytes % 0.1 % (0-4); Lymphocytes # 0.8 K/mcL (0.6-4.6); Mean Corpuscular HGB Conc 34.8 g/dL (31.6-35.5); Mean Corpuscular Hemoglobin 32.6 pg (28.0-33.3); Mean Corpuscular Volume 93.5 fL (83.0-100.0); Mean Platelet Volume 8.7 fL (9.4-12.4); Monocytes # 0.8 K/mcL (0.0-1.3); Monocytes % 11.8 %; Neutrophils # 5.1 K/mcL (1.6-8.9); Platelet Count 208 K/mcL (140-400); Red Blood Count 3.41 M/mcL (4.19-5.50); Red Cell Distribution Width 12.2 % (11.5-14.5); Segmented Neutrophils % 74.8 %
[2016-10-02 04:13] LABS: BUN/Creatinine Ratio 16 (6-26); Blood Urea Nitrogen 14 mg/dL (8-26); Calcium 8.6 mg/dL (8.6-10.8); Carbon Dioxide 28 mEq/L (19-29); Chloride 93 mEq/L (98-109); Glucose 131 mg/dL (70-99); Magnesium 1.7 mg/dL (1.6-2.6); Osmolality,Calculated 268 (280-300); Potassium 4.2 mEq/L (3.5-4.5); eGFR For African Americans > 60 (> 60); eGFR For Non-African Americans > 60 (> 60)
[2016-10-02 04:15] LABS: Sodium 128 mEq/L (136-145)
[2016-10-02] MEDS ORDERED: 0.9 % Sodium Chloride 1,000 ML IVC ONE (08:25)
[2016-10-02] MEDS: Sennosides/Docusate Sodium TABLET PO SCH ×2 (11:01→21:30)
[2016-10-02] MEDS: Finasteride 5 MG TABLET PO SCH (11:01)
[2016-10-02] MEDS: Multivit/Ca/Min/Fe/FA 1 TAB TABLET PO SCH (11:01)
[2016-10-02] MEDS: Cholecalciferol (D-3) 1,000 UNIT TABLET PO SCH (11:01)
[2016-10-02] MEDS: Levothyroxine 25 MCG TABLET PO SCH (11:01)
[2016-10-02] MEDS ORDERED: *HR* OxyCODONE Immed Rel 5 MG TABLET PO PRN (11:35)
[2016-10-02] MEDS ORDERED: Milk and Molasses Enema 200 ML RC ONE (11:35)
[2016-10-02 13:56] LABS: BUN/Creatinine Ratio 17 (6-26); Blood Urea Nitrogen 20 mg/dL (8-26); Calcium 8.6 mg/dL (8.6-10.8); Carbon Dioxide 26 mEq/L (19-29); Chloride 95 mEq/L (98-109); Glucose 156 mg/dL (70-99); Osmolality,Calculated 274 (280-300); Sodium 129 mEq/L (136-145); eGFR For African Americans > 60 (> 60); eGFR For Non-African Americans 60 (> 60)
[2016-10-02] MEDS: 0.9 % Sodium Chloride 1,000 ML IVC SCH (16:32)
[2016-10-02] MEDS: *HR* Heparin 5,000 UNIT/ML VIAL SQ SCH (16:32)
--- NOTE | 2016-10-02 17:16 | Internal Med Progress Note ---
Date of Encounter: 10/02/16 Time of Encounter: 11:30 - Assessment and plan (1) Hyponatremia Current Visit: Yes Status: Acute Assessment and plan: hypovolemic hyponatremia. secondary to poor oral intake. patient has poor appetite. start IV fluids. close monitoring. (2) Lumbar stenosis with neurogenic claudication Current Visit: Yes Status: Chronic Assessment and plan: Patient presents with severe lumbar back pain not controlled with oral medications at home. Appreciate neurosurgery input. 09/30: Patient underwent lumbar laminectomy L4-L5. stop IV Morphine 2 mg. increase oxycodone and start flexeril. Continue IV morphine, gabapentin, and norco as needed. PT/OT recommends ECF. (3) Constipation Current Visit: Yes Status: Acute Assessment and plan: resolved. continue laxatives Qualifiers: Constipation type: unspecified constipation type Qualified Code(s): K59.00 - Constipation, unspecified (4) HTN (hypertension) Current Visit: Yes Status: Chronic Assessment and plan: bp is adequate. continue home dose of captopril. Qualifiers: Hypertension type: essential hypertension Qualified Code(s): I10 - Essential (primary) hypertension (5) Hypothyroid Current Visit: Yes Status: Chronic Assessment and plan: resume home dose. Qualifiers: Hypothyroidism type: unspecified Qualified Code(s): E03.9 - Hypothyroidism , unspecified - Subjective Interval history: patient reports muscle spasms in legs. he has no appetite and his oral intake is poor. he had a bowel movement after laxative. - Constitutional Vitals: Temp Pulse Resp BP Pulse Ox 97.5 F L 74 16 112/70 97 10/02/16 11:30 10/02/16 11:30 10/02/16 11:30 10/02/16 11:30 10/02/16 11:30 General appearance: Present: cooperative, A&O X 3, pleasant, no acute distress, answers questions appropriately - Respiratory Respiratory exam: Present: CTAB - Cardiovascular Cardiovascular exam: Present: RRR - GI/Abdominal GI/Abdominal exam: Present: distended, soft. Absent: normal bowel sounds, tenderness - Extremities Exam Extremities exam: Absent: pedal edema - Neurological Exam Neurological exam: Present: alert, oriented X3, no focal deficits, strengths equal and symetr throughout. Absent: facial droop, speech deficit - Skin Skin exam: Absent: rash Internal Medicine: Result - Labs CBC & Chem 7: 10/02/16 03:31 10/02/16 13:17 Labs: Short CBC 10/02/16 Range/Units 03:31 WBC 6.8 (4.3-11.1) K/mcL Hgb 11.1 L (12.9-16.9) g/dL Hct 31.9 L (37.5-50.1) % Plt Count 208 (140-400) K/mcL Neutrophils # 5.1 (1.6-8.9) K/mcL BMP 10/02/16 10/02/16 03:31 13:17 Sodium 128 L D 129 L Potassium 4.2 4.0 Chloride 93 L 95 L Carbon Dioxide 28 26 BUN 14 20 Creatinine 0.86 1.16 Glucose 131 H 156 H Calcium 8.6 8.6 - VTE Documentation of Mechanical Device: Graduated compression elastic hosiery Consult Discharge Plan - Plan Referrals: Maxine Wilson, PAC [Physician Rn Ortho] - 10/13/16 1:45 pm
[2016-10-03] MEDS: *HR* OxyCODONE Immed Rel 5 MG TABLET PO PRN ×4 (03:18→21:51)
[2016-10-03] MEDS: 0.9 % Sodium Chloride 1,000 ML IVC SCH ×3 (03:23→21:50)
[2016-10-03] MEDS: *HR* Heparin 5,000 UNIT/ML VIAL SQ SCH ×2 (05:08→17:10)
[2016-10-03 06:34] LABS: BUN/Creatinine Ratio 19 (6-26); Blood Urea Nitrogen 16 mg/dL (8-26); Calcium 8.2 mg/dL (8.6-10.8); Carbon Dioxide 27 mEq/L (19-29); Chloride 97 mEq/L (98-109); Glucose 111 mg/dL (70-99); Osmolality,Calculated 274 (280-300); Sodium 131 mEq/L (136-145); eGFR For African Americans > 60 (> 60); eGFR For Non-African Americans > 60 (> 60)
[2016-10-03 06:40] LABS: Basophils % 0.2 %; Eosinophils # 0.3 K/mcL (0.0-0.6); Eosinophils % 5.9 %; Hematocrit 28.7 % (37.5-50.1); Hemoglobin 9.7 g/dL (12.9-16.9); Immature Granulocytes % 0.4 % (0-4); Lymphocytes # 0.9 K/mcL (0.6-4.6); Lymphocytes % 16.4 %; Mean Corpuscular HGB Conc 33.8 g/dL (31.6-35.5); Mean Corpuscular Volume 94.7 fL (83.0-100.0); Mean Platelet Volume 8.4 fL (9.4-12.4); Monocytes # 0.6 K/mcL (0.0-1.3); Monocytes % 10.3 %; Neutrophils # 3.8 K/mcL (1.6-8.9); Platelet Count 208 K/mcL (140-400); Red Blood Count 3.03 M/mcL (4.19-5.50); Red Cell Distribution Width 12.3 % (11.5-14.5); Segmented Neutrophils % 66.8 %
[2016-10-03] MEDS: Cholecalciferol (D-3) 1,000 UNIT TABLET PO SCH (08:48)
[2016-10-03] MEDS: Levothyroxine 25 MCG TABLET PO SCH (08:48)
[2016-10-03] MEDS: Finasteride 5 MG TABLET PO SCH (08:49)
[2016-10-03] MEDS: Sennosides/Docusate Sodium TABLET PO SCH ×2 (08:49→21:51)
[2016-10-03] MEDS: Multivit/Ca/Min/Fe/FA 1 TAB TABLET PO SCH (08:49)
[2016-10-03 11:00] LABS: Hemoglobin 10.9 g/dL (12.9-16.9)
--- NOTE | 2016-10-03 13:06 | Discharge Summary ---
Date of Encounter: 10/03/16 Time of Encounter: 13:01 - Discharge Diagnosis (1) Hyponatremia Priority: Primary Status: Acute (2) Lumbar stenosis with neurogenic claudication Priority: Primary Status: Chronic (3) Constipation Priority: Primary Status: Acute Qualifiers: Constipation type: unspecified constipation type Qualified Code(s): K59.00 - Constipation, unspecified (4) HTN (hypertension) Priority: Secondary Status: Chronic Qualifiers: Hypertension type: essential hypertension Qualified Code(s): I10 - Essential (primary) hypertension (5) Hypothyroid Status: Chronic Qualifiers: Hypothyroidism type: unspecified Qualified Code(s): E03.9 - Hypothyroidism , unspecified - Discharge Medications Home Medications: Aspirin Enteric Coated [Aspirin EC] 81 mg PO DAILY 05/03/15 [History] Calcitonin Nasal [place] [Miacalcin Nasal [place]] 1 spray NS DAILY 05/03/15 [ History] Captopril [Capoten] 6.25 mg PO HS 05/03/15 [History] Gabapentin [Neurontin] 100 mg PO QAM 05/03/15 [History] Multivitamin [Multi-Day Vitamins] 1 tab PO DAILY 05/03/15 [History] Omega3,5,6,7,9 No.1/[place] Oil [Complete [place] Softgel] 1 cap PO DAILY 05/03/15 [History] Omeprazole [PriLOSEC] 20 mg PO BID 05/03/15 [History] Ranitidine HCl [Zantac] 150 mg PO DAILY PRN 05/03/15 [History] Simvastatin [Zocor] 40 mg PO QPM 05/03/15 [History] Terazosin [Hytrin] 10 mg PO HS 05/03/15 [History] OxyCODONE/APAP 5/325 [Percocet 5/325 MG] 1 each PO Q6HR PRN #25 tablet 09/26/16 [Rx] Acetaminophen [Tylenol] 500 mg PO Q6H PRN MDD 1000 mg 09/28/16 [History] Calcium Carbonate [Tums] 1,000 mg PO Q4HR PRN 09/28/16 [History] Cholecalciferol (Vitamin D3) [Vitamin D] 600 unit PO DAILY 09/28/16 [History] Ferrous Sulfate 325 mg PO DAILY 09/28/16 [History] Finasteride [Proscar] 5 mg PO DAILY 09/28/16 [History] Levothyroxine [Synthroid] 12.5 mcg PO QAM 09/28/16 [History] Vit C/Vit E/Lutein/Min/[place]-3 [Ocuvite Softgel] 1 each PO BID 09/28/16 [History ] Allergies/Adverse Reactions: Allergies No Known Allergies Allergy (Verified 05/03/15 09:29) Date of admission: 09/28/16 14:39 Primary care physician: Kapil Boothe Consults: 09/30/16 13:34 Consult to Nurse Navigator [CONS] Routine Comment: spine navigator Consult to Occupational Therapy [CONS] Routine Comment: Evaluate, develop and implement POC Consult to Physical Therapy [CONS] Routine Comment: Evaluate, develop and implement POC - Patient Status Disposition: Transfer Inpatient Rehab Fac Condition: Good Functional capacity at discharge: uses cane/walker Overall status at discharge: patient is progressing back to baseline - Discharge Instructions Follow Up With: Maxine Wilson PAC [Physician Assembler Leather Goods] - 10/13/16 1:45 pm Hospital course: Mr. Mcgregor is a 86 year old male - Time Spent with Patient Total time spent providing and/or coordinating discharge services: - Constitutional Vitals: Temp Pulse Resp BP Pulse Ox 98.3 F 76 18 150/81 93 10/03/16 08:29 10/03/16 08:29 10/03/16 08:29 10/03/16 08:29 10/03/16 08:29 General appearance: Present: cooperative, A&O X 3, pleasant, no acute distress, answers questions appropriately - VTE Documentation of Mechanical Device: Graduated compression elastic hosiery
--- NOTE | 2016-10-03 13:26 | Spine Progress Note ---
Date of Encounter: 10/03/16 Time of Encounter: 13:24 - Assessment and Plan (1) Lumbar stenosis with neurogenic claudication Current Visit: Yes Status: Chronic We will plan to perform elective lumbar decompression in a.m. 09/30/2016. We will do routine preoperative planning including NPO and preoperative antibiotics. The patient understands and is willing to proceed. He understands that this will be dependent on clearance from the hospitalist service. Subjective Principal diagnosis: Lumbar stenosis, back pain Interval history: Continues with some back pain. Complains of difficulty with urination and low volume voiding in the past day. On oral narcotics. Postoperative day 3. Afebrile vital signs stable. He is neurovascularly intact with regard to his bilateral lower extremities. Assessment stable. Plan: Continue oral analgesics , mobilized, will likely need inpatient rehabilitation, will obtain bladder scan prior to discharge. If significant volume will consider straight catheter. Objective Vital signs: Vital Signs Temp Pulse Resp BP Pulse Ox 10/03/16 08:29 98.3 F 76 18 150/81 93 10/03/16 03:32 97.5 F L 63 16 139/67 94 10/03/16 00:31 97.7 F 58 14 132/73 93 10/02/16 21:38 92 10/02/16 20:15 98.7 F 67 14 130/71 93 10/02/16 17:01 98.7 F 79 149 149/78 94 Intake and Output 10/02/16 10/03/16 10/03/16 23:59 07:59 15:59 Intake Total 540 / 540 1050 / 1050 360 / 360 Output Total 600 / 600 50 / 50 0 / 0 Balance -60 / -60 1000 / 1000 360 / 360 Intake: IV Fluids 1000 / 1000 0.9 % Sodium Chloride 1, 1000 / 1000 000 ML @ 100 mls/hr IVC . Q10H [facility] Rx#:[id number] Oral 540 / 540 50 / 50 360 / 360 Output: Urine 600 / 600 50 / 50 0 / 0 Other: Meal Dinner Breakfast Percent of Meal Consumed 5% 100% # Voids 1 Weight 71.1 kg Patient Weight 10/03/16 23:59 Weight 71.1 kg - Labs CBC & BMP: 10/03/16 10:46 10/03/16 10:46 Labs: Abnormal lab results RBC 3.03 M/mcL (4.19-5.50) L 10/03/16 05:56 Hgb 10.9 g/dL (12.9-16.9) L 10/03/16 10:46 Hct 32.0 % (37.5-50.1) L 10/03/16 10:46 MPV 8.4 fL (9.4-12.4) L 10/03/16 05:56 Sodium 130 mEq/L (136-145) L 10/03/16 10:46 Chloride 97 mEq/L (98-109) L 10/03/16 05:56 Glucose 111 mg/dL (70-99) H 10/03/16 05:56 Calculated Osmolality 274 (280-300) L 10/03/16 05:56 Calcium 8.2 mg/dL (8.6-10.8) L 10/03/16 05:56 Consult Discharge Plan - Plan Referrals: Maxine Wilson, PAC [Physician Consulting It Architect] - 10/13/16 1:45 pm
--- NOTE | 2016-10-03 14:22 | Internal Med Progress Note ---
Date of Encounter: 10/03/16 Time of Encounter: 10:45 - Assessment and plan (1) Hyponatremia Current Visit: Yes Status: Acute Assessment and plan: hypovolemic hyponatremia. Na went down to 128 on 10/02. slowly improving. 0.9% IV fluids. close monitoring. check urine electrolytes. (2) Urinary retention Current Visit: Yes Status: Acute Assessment and plan: stat UA. continue home dose of terazosin. (3) Lumbar stenosis with neurogenic claudication Current Visit: Yes Status: Chronic Assessment and plan: Patient presents with severe lumbar back pain not controlled with oral medications at home. Appreciate neurosurgery input. 09/30: Patient underwent lumbar laminectomy L4-L5. continue oxycodone prn, flexeril, gabapentin. PT/OT recommends ECF. (4) Constipation Current Visit: Yes Status: Acute Assessment and plan: resolved. continue laxatives Qualifiers: Constipation type: unspecified constipation type Qualified Code(s): K59.00 - Constipation, unspecified (5) HTN (hypertension) Current Visit: Yes Status: Chronic Assessment and plan: resume home dose of captopril. bp is adequate. Qualifiers: Hypertension type: essential hypertension Qualified Code(s): I10 - Essential (primary) hypertension (6) Hypothyroid Current Visit: Yes Status: Chronic Assessment and plan: resume home dose. Qualifiers: Hypothyroidism type: unspecified Qualified Code(s): E03.9 - Hypothyroidism , unspecified - Subjective Interval history: patient reports better oral intake today, he ate his whole breakfast. - Constitutional Vitals: Temp Pulse Resp BP Pulse Ox 98.3 F 76 18 150/81 93 10/03/16 08:29 10/03/16 08:29 10/03/16 08:29 10/03/16 08:29 10/03/16 08:29 General appearance: Present: cooperative, A&O X 3, pleasant, no acute distress, answers questions appropriately - Respiratory Respiratory exam: Present: CTAB - Cardiovascular Cardiovascular exam: Present: RRR - GI/Abdominal GI/Abdominal exam: Present: normal bowel sounds, soft. Absent: distended, tenderness - Extremities Exam Extremities exam: Absent: pedal edema - Back Exam Additional comments: surgical incision covered by dressing - Neurological Exam Neurological exam: Present: alert, oriented X3. Absent: facial droop, speech deficit - Skin Skin exam: Absent: rash Internal Medicine: Result - Labs CBC & Chem 7: 10/03/16 10:46 10/03/16 10:46 Labs: Short CBC 10/03/16 10/03/16 Range/Units 05:56 10:46 WBC 5.6 (4.3-11.1) K/mcL Hgb 9.7 L 10.9 L (12.9-16.9) g/dL Hct 28.7 L 32.0 L (37.5-50.1) % Plt Count 208 (140-400) K/mcL Neutrophils # 3.8 (1.6-8.9) K/mcL BMP 10/03/16 10/03/16 05:56 10:46 Sodium 131 L 130 L Potassium 4.0 Chloride 97 L Carbon Dioxide 27 BUN 16 Creatinine 0.86 Glucose 111 H Calcium 8.2 L - VTE Documentation of Mechanical Device: Graduated compression elastic hosiery Consult Discharge Plan - Plan Referrals: Maxine Wilson, PAC [Physician [employer]] - 10/13/16 1:45 pm
[2016-10-03] MEDS ORDERED: Bisacodyl 10 MG RECTAL SUPPOSITORY RC ONE (16:04)
[2016-10-04 00:52] LABS: Bilirubin,Urine Negative (Negative); Blood,Urine Negative (Negative); Clarity,Urine Clear (Clear); Color,Urine Yellow (Yellow); Glucose,Urine (UA) Normal (Normal); Ketones,Urine Negative (Negative); Leukocyte Esterase,Urine Negative (Negative); Nitrite,Urine Negative (Negative); Protein,Urine Negative (Neg-Trace)
[2016-10-04] MEDS: *HR* OxyCODONE Immed Rel 5 MG TABLET PO PRN (03:39)
[2016-10-04] MEDS: *HR* Heparin 5,000 UNIT/ML VIAL SQ SCH (06:23)
[2016-10-04 07:44] LABS: Basophils % 0.2 %; Eosinophils # 0.4 K/mcL (0.0-0.6); Eosinophils % 6.3 %; Hematocrit 30.2 % (37.5-50.1); Hemoglobin 10.4 g/dL (12.9-16.9); Immature Granulocytes % 0.4 % (0-4); Lymphocytes # 0.8 K/mcL (0.6-4.6); Lymphocytes % 13.6 %; Mean Corpuscular HGB Conc 34.4 g/dL (31.6-35.5); Mean Corpuscular Hemoglobin 32.6 pg (28.0-33.3); Mean Corpuscular Volume 94.7 fL (83.0-100.0); Mean Platelet Volume 8.7 fL (9.4-12.4); Monocytes # 0.6 K/mcL (0.0-1.3); Monocytes % 9.8 %; Neutrophils # 3.9 K/mcL (1.6-8.9); Platelet Count 244 K/mcL (140-400); Red Blood Count 3.19 M/mcL (4.19-5.50); Segmented Neutrophils % 69.7 %
[2016-10-04 08:13] LABS: BUN/Creatinine Ratio 18 (6-26); Blood Urea Nitrogen 14 mg/dL (8-26); Calcium 8.4 mg/dL (8.6-10.8); Carbon Dioxide 24 mEq/L (19-29); Chloride 97 mEq/L (98-109); Glucose 102 mg/dL (70-99); Osmolality,Calculated 271 (280-300); Potassium 3.9 mEq/L (3.5-4.5); Sodium 130 mEq/L (136-145); eGFR For African Americans > 60 (> 60); eGFR For Non-African Americans > 60 (> 60)
[2016-10-04] MEDS: 0.9 % Sodium Chloride 1,000 ML IVC SCH (08:17)
[2016-10-04] MEDS: Cholecalciferol (D-3) 1,000 UNIT TABLET PO SCH (08:31)
[2016-10-04] MEDS: Multivit/Ca/Min/Fe/FA 1 TAB TABLET PO SCH (08:31)
[2016-10-04] MEDS: Finasteride 5 MG TABLET PO SCH (08:32)
[2016-10-04] MEDS: Levothyroxine 25 MCG TABLET PO SCH (08:32)
[2016-10-04] MEDS: Sennosides/Docusate Sodium TABLET PO SCH (08:34)
--- NOTE | 2016-10-04 10:12 | Discharge Summary ---
Date of Encounter: 10/04/16 Time of Encounter: 10:00 - Discharge Diagnosis (1) Lumbar stenosis with neurogenic claudication Priority: Primary Status: Chronic (2) Hyponatremia Priority: Primary Status: Chronic (3) HTN (hypertension) Priority: Secondary Status: Chronic Qualifiers: Hypertension type: essential hypertension Qualified Code(s): I10 - Essential (primary) hypertension (4) Hypothyroid Priority: Secondary Status: Chronic Qualifiers: Hypothyroidism type: unspecified Qualified Code(s): E03.9 - Hypothyroidism , unspecified - Discharge Medications Prescriptions: OxyCODONE Immed Rel [Roxicodone 5 MG] 10 mg PO Q4HR PRN #30 tablet PRN Reason: for moderate to severe pain Bisacodyl [Dulcolax] 10 mg RC DAILY PRN #14 supp.rect PRN Reason: Constipation Bisacodyl [Dulcolax] 10 mg PO DAILY #14 tablet Home Medications: Aspirin Enteric Coated [Aspirin EC] 81 mg PO DAILY 05/03/15 [History] Calcitonin Nasal [place] [Miacalcin Nasal [place]] 1 spray NS DAILY 05/03/15 [ History] Captopril [Capoten] 6.25 mg PO HS 05/03/15 [History] Gabapentin [Neurontin] 100 mg PO QAM 05/03/15 [History] Multivitamin [Multi-Day Vitamins] 1 tab PO DAILY 05/03/15 [History] Omega3,5,6,7,9 No.1/[place] Oil [Complete [place] Softgel] 1 cap PO DAILY 05/03/15 [History] Omeprazole [PriLOSEC] 20 mg PO BID 05/03/15 [History] Ranitidine HCl [Zantac] 150 mg PO DAILY PRN 05/03/15 [History] Simvastatin [Zocor] 40 mg PO QPM 05/03/15 [History] Terazosin [Hytrin] 10 mg PO HS 05/03/15 [History] Acetaminophen [Tylenol] 500 mg PO Q6H PRN MDD 1000 mg 09/28/16 [History] Calcium Carbonate [Tums] 1,000 mg PO Q4HR PRN 09/28/16 [History] Cholecalciferol (Vitamin D3) [Vitamin D3] 600 unit PO DAILY 09/28/16 [History] Ferrous Sulfate 325 mg PO DAILY 09/28/16 [History] Finasteride [Proscar] 5 mg PO DAILY 09/28/16 [History] Levothyroxine [Synthroid] 12.5 mcg PO QAM 09/28/16 [History] Vit C/Vit E/[place]utein/Min/[place]-3 [Ocuvite Softgel] 1 each PO BID 09/28/16 [History ] Bisacodyl [Dulcolax] 10 mg PO DAILY #14 tablet 10/04/16 [Rx] Bisacodyl [Dulcolax] 10 mg RC DAILY PRN #14 supp.rect 10/04/16 [Rx] Cyclobenzaprine [Flexeril] 5 mg PO TID PRN #0 tablet 10/04/16 [Rx] OxyCODONE Immed Rel [Roxicodone 5 MG] 10 mg PO Q4HR PRN #30 tablet 10/04/16 [Rx] Allergies/Adverse Reactions: Allergies No Known Allergies Allergy (Verified 05/03/15 09:29) Date of admission: 09/28/16 14:39 Primary care physician: Kapil Boothe Consults: 09/30/16 13:34 Consult to Nurse Navigator [CONS] Routine Comment: spine navigator Consult to Occupational Therapy [CONS] Routine Comment: Evaluate, develop and implement POC Consult to Physical Therapy [CONS] Routine Comment: Evaluate, develop and implement POC - Patient Status Disposition: Transfer Inpatient Rehab Fac Condition: Good Functional capacity at discharge: uses cane/walker Overall status at discharge: patient is progressing back to baseline - Discharge Instructions Follow Up With: Maxine Wilson PAC [Physician Medical Supervisor] - 10/13/16 1:45 pm - Diet and Activity Activity: as per physical therapy Diet: low fat, low cholesterol, low salt diet Interval History: Patient feels better this morning. He states he is eating more, had a large bowel movement this morning and is urinating better. Hospital course: Mr. Mcgregor is a 86 year old male with past medical history of hypertension, hypothyroidism and chronic lumbar stenosis with neurogenic claudication. He presented with severe lumbar back pain not controlled with oral medications at home. Patient underwent a lumbar laminectomy L4-L5 without complications. His postoperative course was complicated by hypovolemic hyponatremia due to poor oral intake, constipation and urinary retention. He was started on IV fluids and laxatives with improvement of sodium level and resolution of constipation. Urinalysis was negative for urinary infection. At discharge, patient was eating and urinating well. PLAN: Placement in a rehabilitation center for further PT/OT care. - Time Spent with Patient Total time spent providing and/or coordinating discharge services: - Constitutional Vitals: Temp Pulse Resp BP Pulse Ox 97.6 F 59 14 132/67 95 10/04/16 07:38 10/04/16 07:38 10/04/16 07:38 10/04/16 07:38 10/04/16 08:00 General appearance: Present: cooperative, A&O X 3, pleasant, no acute distress, answers questions appropriately - Respiratory Respiratory exam: Present: CTAB - Cardiovascular Cardiovascular exam: Present: RRR - GI/Abdominal GI/Abdominal exam: Present: normal bowel sounds, soft. Absent: distended, tenderness - Extremities Exam Extremities exam: Absent: pedal edema - Back Exam Back exam: Present: paraspinal tenderness Additional comments: dressing covering surgical wound - Neurological Exam Neurological exam: Present: alert, oriented X3, no focal deficits, strengths equal and symetr throughout. Absent: facial droop, speech deficit - Skin Skin exam: Absent: rash - VTE Documentation of Mechanical Device: Graduated compression elastic hosiery
[2016-10-04 10:55] VITALS: BP 129/59
--- NOTE | 2016-10-05 08:01 | Physician Discharge Referral ---
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 (2) Hyponatremia Status: Chronic (3) HTN (hypertension) Status: Chronic (4) Hypothyroid Status: Chronic - Transfer Medications Prescriptions: OxyCODONE Immed Rel [Roxicodone 5 MG] 10 mg PO Q4HR PRN #30 tablet PRN Reason: for moderate to severe pain Bisacodyl [Dulcolax] 10 mg RC DAILY PRN #14 supp.rect PRN Reason: Constipation Bisacodyl [Dulcolax] 10 mg PO DAILY #14 tablet Home Medications: Aspirin Enteric Coated [Aspirin EC] 81 mg PO DAILY 05/03/15 [History] Calcitonin Nasal [place] [Miacalcin Nasal [place]] 1 spray NS DAILY 05/03/15 [ History] Captopril [Capoten] 6.25 mg PO HS 05/03/15 [History] Gabapentin [Neurontin] 100 mg PO QAM 05/03/15 [History] Multivitamin [Multi-Day Vitamins] 1 tab PO DAILY 05/03/15 [History] Omega3,5,6,7,9 No.1/[place] Oil [Complete [place] Softgel] 1 cap PO DAILY 05/03/15 [History] Omeprazole [PriLOSEC] 20 mg PO BID 05/03/15 [History] Ranitidine HCl [Zantac] 150 mg PO DAILY PRN 05/03/15 [History] Simvastatin [Zocor] 40 mg PO QPM 05/03/15 [History] Terazosin [Hytrin] 10 mg PO HS 05/03/15 [History] Acetaminophen [Tylenol] 500 mg PO Q6H PRN MDD 1000 mg 09/28/16 [History] Calcium Carbonate [Tums] 1,000 mg PO Q4HR PRN 09/28/16 [History] Cholecalciferol (Vitamin D3) [Vitamin D3] 600 unit PO DAILY 09/28/16 [History] Ferrous Sulfate 325 mg PO DAILY 09/28/16 [History] Finasteride [Proscar] 5 mg PO DAILY 09/28/16 [History] Levothyroxine [Synthroid] 12.5 mcg PO QAM 09/28/16 [History] Vit C/Vit E/[place]/Min/[place]-3 [Ocuvite Softgel] 1 each PO BID 09/28/16 [History ] Bisacodyl [Dulcolax] 10 mg PO DAILY #14 tablet 10/04/16 [Rx] Bisacodyl [Dulcolax] 10 mg RC DAILY PRN #14 supp.rect 10/04/16 [Rx] Cyclobenzaprine [Flexeril] 5 mg PO TID PRN #0 tablet 10/04/16 [Rx] OxyCODONE Immed Rel [Roxicodone 5 MG] 10 mg PO Q4HR PRN #30 tablet 10/04/16 [Rx] Allergies/Adverse Reactions: Allergies No Known Allergies Allergy (Verified 05/03/15 09:29) - Respiratory Orders Smoking Cessation: Smoking cessation has been advised. For more information, call the [place] Tobacco Quit Line at 8-952-XXFO-NOW. - Lab Orders Lab Orders: Other (include drug levels w/frequency) (Sodium and H/H in 1 week) - Mobility Orders Ambulate - Rehabiliation Orders Rehab Potential: Fair Rehab Orders: Evaluation for Physical Therapy, Evaluation for Occupational Therapy - Treatments Skin tear care topically daily PRN per policy, May check for fecal impaction rectally daily PRN - Diet Orders Regular CERTIFICATION: I certify that the transfer of the above named patient to an Extended Care Facility is necessary for the continuing treatment of the diagnosis listed. The above information is true and accurate reflection of patient's current condition. Confidential - Redisclosure prohibited without a patient's written consent.
== END 2016-10-04 11:45 ==
LOC: 3NENU 12:09 → EMEROO 12:09 → 3NENU 14:59 → 3ANU 09-30 16:58
PROVIDERS: ADMIT Internal Medicine; ATTEND Internal Medicine

== ENCOUNTER 2017-12-10 22:04 | Inpatient (IN) ==
[2017-12-10] MEDS ORDERED: Isovue-370 500 ML INFUS..BTL IV ONE (22:47)
[2017-12-10] MEDS ORDERED: diazePAM 5 MG TABLET PO ONE (22:49)
--- NOTE | 2017-12-10 22:58 | Emergency Department Note ---
Disposition Clinical Impression: Compression fracture of lumbar vertebra Qualifiers: Encounter type: initial encounter Lumbar vertebra fracture level: L3 Fracture type: closed Qualified Code(s): S32.030A - Wedge compression fracture of third lumbar vertebra, initial encounter for closed fracture Disposition: Admitted As Inpatient Condition: Fair Time of Disposition: 05:34 General Adult HPI - General Chief complaint: ED Back Pain/Injury Stated complaint: "Severe Back Pain in Lumbar Area" Time Seen by Provider: 12/10/17 22:22 Source: patient, family Mode of arrival: ambulatory Limitations: no limitations Nursing Notes Reviewed: Yes Vital Signs Reviewed: Yes - History of Present Illness HPI Narrative: Patient is an 79-year-old male with past medical history of COPD, diabetes, HTN , and history of surgical laminectomy in his lumbar region presents for evaluation of lower back pain that started 3 days ago. Patient states that he has a history of laminectomy at L3 and has been going to physical therapy and thought he was improving. According to patient's son he is doing a large amount of work outdoors and around the house son thinks that he is over doing the yard work. Patient describes the pain is in the lumbar region does diffusely across the back with no radiation into the lower extremities. Patient denies any bowel or urinary incontinence. Pain Scale: 7 - Related Data Home Medications Medication Instructions Recorded Confirmed Aspirin Enteric Coated [Aspirin EC] 81 mg PO DAILY 05/03/15 12/11/17 Calcitonin Nasal [place] [Miacalcin 1 spray NS DAILY 05/03/15 12/11/17 Nasal [place]] Captopril [Capoten] 6.25 mg PO HS 05/03/15 09/28/16 Gabapentin [Neurontin] 100 mg PO QAM 05/03/15 12/11/17 Multivitamin [Multi-Day Vitamins] 1 tab PO DAILY 05/03/15 12/11/17 Omega3,5,6,7,9 No.1/[place] Oil 1 cap PO DAILY 05/03/15 12/11/17 [Complete [place] Softgel] Omeprazole [PriLOSEC] 20 mg PO BID 05/03/15 12/11/17 Simvastatin [Zocor] 40 mg PO QPM 05/03/15 12/11/17 Terazosin [Hytrin] 10 mg PO HS 05/03/15 12/11/17 Acetaminophen [Tylenol] 500 mg PO Q6H PRN MDD 1000 mg 09/28/16 12/11/17 Calcium Carbonate [Tums] 1,000 mg PO Q4HR PRN 09/28/16 12/11/17 Cholecalciferol (Vitamin D3) 600 unit PO DAILY 09/28/16 12/11/17 [Vitamin D3] Ferrous Sulfate 325 mg PO DAILY 09/28/16 12/11/17 Finasteride [Proscar] 5 mg PO DAILY 09/28/16 12/11/17 Levothyroxine [Synthroid] 12.5 mcg PO QAM 09/28/16 12/11/17 Vit C/Vit E/[place]in/Min/[place]-3 1 each PO BID 09/28/16 12/11/17 [Ocuvite Softgel] Previous Rx's Medication Instructions Recorded Bisacodyl [Dulcolax] 10 mg PO DAILY #14 tablet 10/04/16 Bisacodyl [Dulcolax] 10 mg RC DAILY PRN #14 supp.rect 10/04/16 Cyclobenzaprine [Flexeril] 5 mg PO TID PRN #0 tablet 10/04/16 OxyCODONE Immed Rel [Roxicodone 5 10 mg PO Q4HR PRN #30 tablet 10/04/16 MG] Allergies Allergy/AdvReac Type Severity Reaction Status Date / Time No Known Allergies Allergy Verified 10/27/16 08:56 All systems ED: reviewed and negative except as stated. Review of Systems: As Per HPI Constitutional: Denies: fever, chills Cardiovascular: Denies: chest pain, palpitations, dyspnea on exertion Respiratory: Denies: cough, dyspnea, wheezes Gastrointestinal: Denies: abdominal pain, nausea, vomiting Genitourinary: Denies: dysuria Musculoskeletal: Reports: back pain. Denies: neck pain Neurological: Denies: headache, weakness, numbness, paresthesias, confusion, abnormal gait, vertigo Past Medical History - Past Medical History Medical history: Reports: COPD, diabetes, hypertension, thyroid disease Surgical history: Reports: cataract, herniorrhaphy, hip replacement, orthopedic , other, vasectomy, other Psychiatric history: Reports: depression - Social History Smoking Status: Never smoker Smokeless Tobacco Status: No Alcohol use: Reports: none Drug use: Reports: none Physical Exam CONSTITUTIONAL: Alert and oriented X3, well-nourished, well appearing, in no apparent distress HEAD: Normocephalic; atraumatic. EYES: PERRL, no scleral icterus. NOSE: The nose is normal in appearance without rhinorrhea RESP: Normal chest excursion with respiration; breath sounds clear and equal bilaterally; no wheezes, rhonchi, or rales CARD: Regular rhythm, without murmurs, rub or gallop ABD: Non-distended; non-tender, soft,without rigidity, rebound or guarding SKIN: Normal for age and race; warm and dry; no apparent lesions NEUROLOGICAL: Patient is alert and oriented times three. Cranial nerves III- XII are intact. Sensory and motor functions are intact. Strength is 5/5 for flexion and extension in all 4 extremities. Patellar DTRS are equal and intact. Finger to nose testing is equal and normal bilaterally. - General Limitations: no limitations General appearance: alert, in no apparent distress Course Course Narrative: Patient's physical exam reveals no focal neurological deficits. Pain is in the lumbar spine. Given the severity of this pain plan at this time is to perform a CTA to evaluate for aneurysm towards/dissection we will also perform a CT scan of the patient's thoracic and lumbar spine. - Reevaluation(s) Reevaluation #1: CT of the patient's lumbar spine reveals a compression fracture. I discussed these findings with Dr. Humphrey who is the orthopedist environmental health officer discussed plan to admit the patient for evaluation in the morning by Dr. Humphrey. Vital Signs Temperature 97.6 F 12/10/17 22:06 Pulse Rate 93 12/10/17 22:06 Respiratory Rate 15 12/10/17 22:06 Blood Pressure 157/74 12/10/17 22:06 O2 Sat by Pulse Oximetry 96 12/10/17 22:06 Temperature 97.9 F 12/11/17 02:59 Pulse Rate 57 12/11/17 02:59 Respiratory Rate 18 12/11/17 02:59 Blood Pressure 151/69 12/11/17 02:59 O2 Sat by Pulse Oximetry 97 12/11/17 02:59 Oxygen Delivery Oxygen Delivery Room Air Medical Decision Making - Medical Records Medical records reviewed: Yes I reviewed the patient's medical records. - Lab Data Lab results reviewed: Yes I reviewed the patient's lab results. Result diagrams: 12/10/17 23:03 12/10/17 23:03 Lab Results 12/10/17 12/10/17 12/10/17 Range/Units 23:03 23:03 23:56 WBC 8.0 (4.3-11.1) K/mcL RBC 3.74 L (4.19-5.50) M/mcL Hgb 12.5 L (12.9-16.9) g/dL Hct 36.3 L (37.5-50.1) % MCV 97.1 (83.0-100.0) fL MCH 33.4 H (28.0-33.3) pg MCHC 34.4 (31.6-35.5) g/dL RDW 13.3 (11.5-14.5) % Plt Count 184 (140-400) K/mcL MPV 9.1 L (9.4-12.4) fL Immature Gran % 0.4 (0-4) % Seg Neutrophils % 76.8 % Lymphocytes % 12.3 % Monocytes % 9.4 % Eosinophils % 1.0 % Basophils % 0.1 % Neutrophils # 6.1 (1.6-8.9) K/mcL Lymphocytes # 1.0 (0.6-4.6) K/mcL Monocytes # 0.8 (0.0-1.3) K/mcL Eosinophils # 0.1 (0.0-0.6) K/mcL Basophils # 0.0 (0.0-0.2) K/mcL Sodium 133 L (136-145) mEq/L Potassium 4.0 (3.5-5.1) mEq/L Chloride 100 (98-107) mEq/L Carbon Dioxide 24 (23-29) mEq/L BUN 20 (8-23) mg/dL Creatinine 0.95 (0.70-1.30) mg/dL Est GFR ( Amer) > 60 (> 60) Est GFR (Non-Af Amer) > 60 (> 60) BUN/Creatinine Ratio 21 (6-26) Glucose 115 H (70-105) mg/dL Calculated Osmolality 280 (280-300) Calcium 8.9 (8.6-10.3) mg/dL Total Bilirubin 0.6 (0.3-1.0) mg/dL AST 21 (13-39) Units/L ALT 14 (7-52) Units/L Alkaline Phosphatase 63 (34-104) Units/L Serum Total Protein 6.1 L (6.4-8.9) g/dL Albumin 4.0 (3.5-5.7) g/dL Globulin 2.1 L (2.4-3.5) g/dL Albumin/Globulin Ratio 1.9 (1.1-2.2) Urine Color Yellow (Yellow) Urine Clarity Clear (Clear) Urine pH 6.5 (5.0-8.0) pH Units Ur Specific [place] 1.017 (1.010-1.025) Urine Protein Negative (Neg-Trace) mg/dL Urine Glucose (UA) Normal (Normal) mg/dL Urine Ketones Negative (Negative) mg/dL Urine Blood Negative (Negative) Urine Nitrite Negative (Negative) Urine Bilirubin Negative (Negative) Urine Urobilinogen Normal (Normal) mg/dL Ur Leukocyte Esterase Small H (Negative) Urine Microscopic RBC 0-3 (0-3) per hpf Urine Microscopic WBC 0-3 (0-3) per hpf Ur Squamous Epith Cells Moderate H (None-Few) per lpf Urine Bacteria None Seen (None-Few) per hpf Hyaline Casts None Seen (None-Few) per lpf Ur Culture Indicated? YES A (NO) - Radiology Data Radiology results reviewed: Yes I reviewed the patient's radiology results. Abdomen/Pelvis CTA 12/10/17 22:47 IMPRESSION: VASCULAR No evidence of an acute aortic syndrome. 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 Negative for acute pulmonary embolism to the segmental level. NON VASCULAR Small volume abdominal ascites and perihepatic fluid, which is indeterminate. No convincing evidence of solid organ injury. The gallbladder appears mildly distended but otherwise within normal limits. Large volume colonic stool without obstruction or apparent wall thickening. Colonic diverticulosis without diverticulitis. MUSCULOSKELETAL Age-indeterminate L3 compression deformity with near complete vertebral body height loss and approximately 3-4 mm retropulsion. This is new since 08/24/2015 and may be acute-subacute. Correlate with point tenderness. Unchanged T12 compression deformity status post cement augmentation. D/ / 12/11/2017 05:04:20 Quincy Michaud / jennie Interpreting Provider: Quincy Michaud Chest CTA 12/10/17 22:47 IMPRESSION: VASCULAR No evidence of an acute aortic syndrome. 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 Negative for acute pulmonary embolism to the segmental level. NON VASCULAR Small volume abdominal ascites and perihepatic fluid, which is indeterminate. No convincing evidence of solid organ injury. The gallbladder appears mildly distended but otherwise within normal limits. Large volume colonic stool without obstruction or apparent wall thickening. Colonic diverticulosis without diverticulitis. MUSCULOSKELETAL Age-indeterminate L3 compression deformity with near complete vertebral body height loss and approximately 3-4 mm retropulsion. This is new since 08/24/2015 and may be acute-subacute. Correlate with point tenderness. Unchanged T12 compression deformity status post cement augmentation. D/ / 12/11/2017 05:04:20 Quincy Michaud / jennie Interpreting Provider: Quincy Michaud Lumbar Spine CT 12/10/17 22:48 IMPRESSION: VASCULAR No evidence of an acute aortic syndrome. 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 Negative for acute pulmonary embolism to the segmental level. NON VASCULAR Small volume abdominal ascites and perihepatic fluid, which is indeterminate. No convincing evidence of solid organ injury. The gallbladder appears mildly distended but otherwise within normal limits. Large volume colonic stool without obstruction or apparent wall thickening. Colonic diverticulosis without diverticulitis. MUSCULOSKELETAL Age-indeterminate L3 compression deformity with near complete vertebral body height loss and approximately 3-4 mm retropulsion. This is new since 08/24/2015 and may be acute-subacute. Correlate with point tenderness. Unchanged T12 compression deformity status post cement augmentation. D/ 12/11/2017 05:04:20 Quincy Michaud / jennie Interpreting Provider: Quincy Michaud Thoracic Spine CT 12/10/17 22:48 IMPRESSION: VASCULAR No evidence of an acute aortic syndrome. 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 Negative for acute pulmonary embolism to the segmental level. NON VASCULAR Small volume abdominal ascites and perihepatic fluid, which is indeterminate. No convincing evidence of solid organ injury. The gallbladder appears mildly distended but otherwise within normal limits. Large volume colonic stool without obstruction or apparent wall thickening. Colonic diverticulosis without diverticulitis. MUSCULOSKELETAL Age-indeterminate L3 compression deformity with near complete vertebral body height loss and approximately 3-4 mm retropulsion. This is new since 08/24/2015 and may be acute-subacute. Correlate with point tenderness. Unchanged T12 compression deformity status post cement augmentation. D/ / 12/11/2017 05:04:20 Quincy Michaud / jennie Interpreting Provider: Quincy Michaud Attestation Statement - Attestation Attestation: I examined this patient and my medical decision-making was reviewed with the Resident Physician. I agree with the documented findings, disposition and treatment plan as described except to the extent set forth below. Findings consistent with severe back pain, found to have compression fracture with complete loss of vertebral height. Neuro intact. Patient will be admitted for pain control and ortho spine consultation.
[2017-12-10 23:15] LABS: Basophils % 0.1 %; Eosinophils # 0.1 K/mcL (0.0-0.6); Hematocrit 36.3 % (37.5-50.1); Hemoglobin 12.5 g/dL (12.9-16.9); Immature Granulocytes % 0.4 % (0-4); Lymphocytes % 12.3 %; Mean Corpuscular HGB Conc 34.4 g/dL (31.6-35.5); Mean Corpuscular Hemoglobin 33.4 pg (28.0-33.3); Mean Corpuscular Volume 97.1 fL (83.0-100.0); Mean Platelet Volume 9.1 fL (9.4-12.4); Monocytes # 0.8 K/mcL (0.0-1.3); Monocytes % 9.4 %; Neutrophils # 6.1 K/mcL (1.6-8.9); Platelet Count 184 K/mcL (140-400); Red Blood Count 3.74 M/mcL (4.19-5.50); Red Cell Distribution Width 13.3 % (11.5-14.5); Segmented Neutrophils % 76.8 %
[2017-12-10 23:36] LABS: Alanine Aminotransferase 14 Units/L (7-52); Albumin/Globulin Ratio 1.9 (1.1-2.2); Alkaline Phosphatase 63 Units/L (34-104); Aspartate Amino Transferase 21 Units/L (13-39); BUN/Creatinine Ratio 21 (6-26); Bilirubin,Total 0.6 mg/dL (0.3-1.0); Blood Urea Nitrogen 20 mg/dL (8-23); Calcium 8.9 mg/dL (8.6-10.3); Carbon Dioxide 24 mEq/L (23-29); Chloride 100 mEq/L (98-107); Globulin 2.1 g/dL (2.4-3.5); Glucose 115 mg/dL (70-105); Osmolality,Calculated 280 (280-300); Sodium 133 mEq/L (136-145); Total Protein 6.1 g/dL (6.4-8.9); eGFR For African Americans > 60 (> 60); eGFR For Non-African Americans > 60 (> 60)
[2017-12-11 00:10] LABS: Bilirubin,Urine Negative (Negative); Blood,Urine Negative (Negative); Clarity,Urine Clear (Clear); Color,Urine Yellow (Yellow); Glucose,Urine (UA) Normal (Normal); Ketones,Urine Negative (Negative); Leukocyte Esterase,Urine Small (Negative); Nitrite,Urine Negative (Negative); PH,Urine 6.5 pH Units (5.0-8.0); Protein,Urine Negative (Neg-Trace); Specific Gravity,Urine 1.017 (1.010-1.025); Urobilinogen,Urine Normal (Normal)
[2017-12-11 00:13] LABS: Bacteria,Urine None Seen per hpf (None-Few); Hyaline Casts,Urine None Seen per lpf (None-Few); RBC,Urine 0-3 per hpf (0-3); Squamous Epithelial Cell,Urine Moderate per lpf (None-Few); WBC,Urine 0-3 per hpf (0-3)
--- NOTE | 2017-12-11 02:57 | Internal Med History&Physical ---
Date of Encounter: 12/11/17 Time of Encounter: 02:57 Internal Medicine - H&P: HPI Chief complaint: back pain History of present illness: Mr. Mcgregor is a 87 year old male with past medical history of COPD, diabetes, HTN , and history of surgical laminectomy in his lumbar region presents for evaluation of lower back pain that started [address] revealec Age- indeterminate L3 compression deformity with near complete vertebral body height loss and approximately 3- 4 mm retropulsion. This is new since 08/24/2015 and may be acute-subacute. Surgery was consulted, agree to see the patient for consult and requested hospitalist to admit. Past Med Surg Social Fam HX - Past Medical History Medical history: COPD, diabetes, hypertension, thyroid disease Additional medical history: esophageal cancer. skin cancer Psychiatric history: depression - Past Surgical History Surgical History: cataract, herniorrhaphy, hip replacement, orthopedic, other, vasectomy, other Additional surgical history: kyphoplasty (back), esophageal cancer surgery, skin cancer removed, hemrhoidectomy x2, toe surgery. RTHR. - Social History Smoking Status: Never smoker Smokeless Tobacco Status: No Alcohol use: none Drug use: none - Family History Mother Living Status: Hx Family Cancer: Yes Father Living Status: Hx Family Cancer: Yes (Prostate Cancer) Internal Medicine - H&P: Meds Aspirin Enteric Coated [Aspirin EC] 81 mg PO DAILY 05/03/15 [History] Calcitonin Nasal [place] [Miacalcin Nasal [place]] 1 spray NS DAILY 05/03/15 [ History] Captopril [Capoten] 6.25 mg PO HS 05/03/15 [History] Gabapentin [Neurontin] 100 mg PO QAM 05/03/15 [History] Multivitamin [Multi-Day Vitamins] 1 tab PO DAILY 05/03/15 [History] Omega3,5,6,7,9 No.1/[place] Oil [Complete [place] Softgel] 1 cap PO DAILY 05/03/15 [History] Omeprazole [PriLOSEC] 20 mg PO BID 05/03/15 [History] Simvastatin [Zocor] 40 mg PO QPM 05/03/15 [History] Terazosin [Hytrin] 10 mg PO HS 05/03/15 [History] Acetaminophen [Tylenol] 500 mg PO Q6H PRN MDD 1000 mg 09/28/16 [History] Calcium Carbonate [Tums] 1,000 mg PO Q4HR PRN 09/28/16 [History] Cholecalciferol (Vitamin D3) [Vitamin D3] 600 unit PO DAILY 09/28/16 [History] Ferrous Sulfate 325 mg PO DAILY 09/28/16 [History] Finasteride [Proscar] 5 mg PO DAILY 09/28/16 [History] Levothyroxine [Synthroid] 12.5 mcg PO QAM 09/28/16 [History] Vit C/Vit E/[place]/Min/[place]-3 [Ocuvite Softgel] 1 each PO BID 09/28/16 [History ] Bisacodyl [Dulcolax] 10 mg PO DAILY #14 tablet 10/04/16 [Rx] Bisacodyl [Dulcolax] 10 mg RC DAILY PRN #14 supp.rect 10/04/16 [Rx] Cyclobenzaprine [Flexeril] 5 mg PO TID PRN #0 tablet 10/04/16 [Rx] OxyCODONE Immed Rel [Roxicodone 5 MG] 10 mg PO Q4HR PRN #30 tablet 10/04/16 [Rx] 3 Allergy/AdvReac Type Severity Reaction Status Date / Time No Known Allergies Allergy Verified 10/27/16 08:56 All Systems PM: A 10-system review of systems was performed and is negative for pertinent findings except as documented above in the HPI. - Constitutional Constitutional: no chills, no fever(s), no night sweats - Cardiovascular Cardiovascular ROS IM: no chest pain, no diaphoresis, no dyspnea, no lightheadedness, no palpitations, no syncope - Musculoskeletal Musculoskeletal ROS IM: back pain, no numbness, no tingling - Neurological Neurological ROS: no confusion, no convulsions, no focal weakness, no numbness, no tingling, no tremor(s) - Constitutional Vitals: Temp Pulse Resp BP Pulse Ox 97.6 F 65 20 167/84 96 12/10/17 22:06 12/10/17 22:37 12/10/17 22:37 12/10/17 22:37 12/10/17 22:37 General appearance: Present: A&O X 3 - Head Head exam: Present: atraumatic, normocephalic - Neck Neck exam general surgery: Present: supple, trachea midline. Absent: lymphadenopathy - Respiratory Respiratory exam: Present: CTAB. Absent: accessory muscle use, rales, rhonchi, wheezes - Cardiovascular Cardiovascular exam: Present: RRR, +S1, +S2. Absent: diastolic murmur, gallop, rubs, systolic murmur - GI/Abdominal GI/Abdominal exam: Present: normal bowel sounds, soft, no peritoneal signs. Absent: distended, tenderness - Extremities Exam Extremities exam: Present: warm, radial pulses palpable and symmetrical. Absent : calf tenderness, cyanotic, pedal edema Internal Med - H&P Results - Labs CBC & Chem 7: 12/10/17 23:03 12/10/17 23:03 - Assessment and plan (1) Lumbar back pain Current Visit: No Status: Acute Assessment and plan: CT revealed Age-indeterminate L3 compression deformity with near complete vertebral body height loss and approximately 3- 4 mm retropulsion. This is new since 08/24/2015 and may be acute-subacute. Surgery was consulted, agree to see the patient for consult and requested hospitalist to admit. Qualifiers: Chronicity: chronic Back pain laterality: midline Sciatica presence: without sciatica Qualified Code(s): M54.5 - Low back pain; G89.29 - Other chronic pain (2) Hypothyroid Current Visit: No Status: Chronic Qualifiers: Hypothyroidism type: unspecified Qualified Code(s): E03.9 - Hypothyroidism , unspecified (3) HTN (hypertension) Current Visit: No Status: Chronic Qualifiers: Hypertension type: essential hypertension Qualified Code(s): I10 - Essential (primary) hypertension (4) Hyponatremia Current Visit: No Status: Chronic (5) DVT prophylaxis Current Visit: No Status: Acute - Time Spent With Patient Total time spent is greater than 50% in coordination of care (as documented) at patient's floor/unit and/or counseling patient:
[2017-12-11] MEDS ORDERED: Naloxone 0.4 MG/ML INJ IVP PRN (03:37)
[2017-12-11] MEDS: *HR* HYDROcodone/Acet 5/325 mg TABLET PO PRN ×2 (04:22→12:36)
[2017-12-11 05:45] LABS: Basophils % 0.2 %; Eosinophils # 0.1 K/mcL (0.0-0.6); Eosinophils % 2.5 %; Hematocrit 35.4 % (37.5-50.1); Immature Granulocytes % 0.2 % (0-4); Lymphocytes # 1.1 K/mcL (0.6-4.6); Lymphocytes % 21.5 %; Mean Corpuscular HGB Conc 33.9 g/dL (31.6-35.5); Mean Corpuscular Hemoglobin 33.1 pg (28.0-33.3); Mean Corpuscular Volume 97.5 fL (83.0-100.0); Mean Platelet Volume 9.1 fL (9.4-12.4); Monocytes # 0.6 K/mcL (0.0-1.3); Monocytes % 12.1 %; Neutrophils # 3.3 K/mcL (1.6-8.9); Platelet Count 184 K/mcL (140-400); Red Blood Count 3.63 M/mcL (4.19-5.50); Red Cell Distribution Width 13.4 % (11.5-14.5); Segmented Neutrophils % 63.5 %
[2017-12-11] MEDS: Levothyroxine 25 MCG TABLET PO SCH (05:53)
[2017-12-11 05:57] LABS: Activated Partial Thrombo Time 30.5 Seconds (26.0-36.0)
[2017-12-11 06:05] LABS: Alanine Aminotransferase 12 Units/L (7-52); Albumin 3.6 g/dL (3.5-5.7); Albumin/Globulin Ratio 1.8 (1.1-2.2); Alkaline Phosphatase 60 Units/L (34-104); Aspartate Amino Transferase 17 Units/L (13-39); BUN/Creatinine Ratio 18 (6-26); Bilirubin,Total 0.7 mg/dL (0.3-1.0); Blood Urea Nitrogen 17 mg/dL (8-23); Calcium 8.8 mg/dL (8.6-10.3); Carbon Dioxide 29 mEq/L (23-29); Chloride 99 mEq/L (98-107); Chol/HDL Ratio 1.7 (0-4.9); Cholesterol 129 mg/dL (< 200); Glucose 99 mg/dL (70-105); HDL Cholesterol 75 mg/dL (40-59); LDL Cholesterol,Calculated 44 mg/dL (0-99); Magnesium 2.1 mg/dL (1.6-2.6); Osmolality,Calculated 282 (280-300); Phosphorous 4.2 mg/dL (2.7-4.5); Potassium 3.8 mEq/L (3.5-5.1); Sodium 135 mEq/L (136-145); Total Protein 5.6 g/dL (6.4-8.9); Triglycerides 51 mg/dL (< 150); eGFR For African Americans > 60 (> 60); eGFR For Non-African Americans > 60 (> 60)
[2017-12-11] MEDS: Multivit/Ca/Min/Fe/FA 1 TAB TABLET PO SCH (07:58)
[2017-12-11] MEDS: Finasteride 5 MG TABLET PO SCH (07:58)
[2017-12-11] MEDS: Aspirin Enteric Coated 81 MG Tablet PO SCH (07:58)
[2017-12-11] MEDS: Acetaminophen 325 MG TABLET PO PRN ×2 (07:58→20:08)
[2017-12-11] MEDS: Cholecalciferol (D-3) 1,000 UNIT TABLET PO SCH (07:58)
[2017-12-11] MEDS: Gabapentin 100 MG CAPSULE PO SCH (07:58)
[2017-12-11] MEDS: OMEGA PO SCH (07:59)
--- NOTE | 2017-12-11 14:54 | Event Note ---
Date of Encounter: 12/11/17 Time of Encounter: 14:20 Pt admitted earlier today with back pain. To have spinal surgery evaluation. Currently he is resting comfortably. Continues plan as ordered.
[2017-12-11] MEDS: *HR* Heparin 5,000 UNIT/ML VIAL SQ SCH (17:20)
[2017-12-11] MEDS ORDERED: Ibuprofen 800 MG TABLET PO ONE (22:21)
[2017-12-12] MEDS: *HR* Heparin 5,000 UNIT/ML VIAL SQ SCH ×2 (05:47→17:09)
[2017-12-12] MEDS: Levothyroxine 25 MCG TABLET PO SCH (05:47)
[2017-12-12] MEDS: *HR* HYDROcodone/Acet 5/325 mg TABLET PO PRN (05:47)
[2017-12-12] MEDS: Finasteride 5 MG TABLET PO SCH (08:27)
[2017-12-12] MEDS: Aspirin Enteric Coated 81 MG Tablet PO SCH (08:27)
[2017-12-12] MEDS: Multivit/Ca/Min/Fe/FA 1 TAB TABLET PO SCH ×2 (08:28→10:30)
[2017-12-12] MEDS: Cholecalciferol (D-3) 1,000 UNIT TABLET PO SCH (08:28)
[2017-12-12] MEDS: Gabapentin 100 MG CAPSULE PO SCH (08:28)
[2017-12-12] MEDS ORDERED: [UNRECOGNIZED DRUG - OTHER] NS SCH (09:00)
[2017-12-12] MEDS ORDERED: CALCITONIN SALMON SYNTHETIC NS SCH (09:00)
[2017-12-12] MEDS ORDERED: TERAZOSIN HCL 10 MG PO SCH (09:00)
[2017-12-12] MEDS: OMEGA PO SCH (10:30)
--- NOTE | 2017-12-12 16:00 | Internal Med Progress Note ---
Date of Encounter: 12/12/17 Time of Encounter: 15:30 - Assessment and plan (1) Compression fracture of lumbar vertebra Current Visit: Yes Status: Acute Assessment and plan: Plan is for kyphoplasty tomorrow. Pt is moderate risk for procedure. Qualifiers: Encounter type: subsequent encounter Lumbar vertebra fracture level: L3 Fracture type: closed Fracture healing: with routine healing Qualified Code( s): S32.030D - Wedge compression fracture of third lumbar vertebra, subsequent encounter for fracture with routine healing (2) Lumbar back pain Current Visit: No Status: Acute Assessment and plan: Pain management. Plan for kyphoplasty tomorrow. Qualifiers: Chronicity: chronic Back pain laterality: midline Sciatica presence: without sciatica Qualified Code(s): M54.5 - Low back pain; G89.29 - Other chronic pain (3) Hypothyroid Current Visit: No Status: Chronic Assessment and plan: Cotinue supplement. Qualifiers: Hypothyroidism type: acquired Qualified Code(s): E03.9 - Hypothyroidism, unspecified (4) HTN (hypertension) Current Visit: No Status: Chronic Assessment and plan: Fair control at this time. Continue meds. Qualifiers: Hypertension type: essential hypertension Qualified Code(s): I10 - Essential (primary) hypertension (5) Hyponatremia Current Visit: No Status: Chronic Assessment and plan: Na somewhat better today. (6) Constipation Current Visit: No Status: Acute Assessment and plan: Supportive care at this time. Qualifiers: Constipation type: slow transit constipation Qualified Code(s): K59.01 - Slow transit constipation (7) DVT prophylaxis Current Visit: No Status: Acute - Time Spent With Patient Total time spent is greater than 50% in coordination of care (as documented) at patient's floor/unit and/or counseling patient: - Subjective Interval history: Mr Mcgregor is currently in observation for compression fracture of lumbar spine. He remains moderate to high risk at this time. Mr Mcgregor is resting comfortably at this time. He is concerned about "not making it through" this procedure. No fever or chills. No cough. Had BM today. No CP or SOB. No CP with exertion. - Constitutional Vitals: Temp Pulse Resp BP Pulse Ox 98.7 F 83 16 159/83 96 12/12/17 09:59 12/12/17 09:59 12/12/17 09:59 12/12/17 09:59 12/12/17 09:59 General appearance: Present: A&O X 3 - Head Head exam: Present: normocephalic - Eye Eye exam: Present: conjuntiva pink - ENT ENT exam: Present: mucous membranes dry - Respiratory Respiratory exam: Absent: rales, rhonchi, wheezes - Cardiovascular Cardiovascular exam: Present: RRR. Absent: tachycardia - GI/Abdominal GI/Abdominal exam: Present: soft. Absent: tenderness - Extremities Exam Extremities exam: Present: warm - Neurological Exam Neurological exam: Present: alert, oriented X3 - Skin Skin exam: Present: dry, warm Internal Medicine: Result - Labs CBC & Chem 7: 12/11/17 05:33 12/11/17 05:33 - ABG Interpretation ABG results: PT/INR, D-dimer PT 11.0 Seconds (9.4-12.1) 12/11/17 05:33 - Impressions Impressions Chest X-Ray 12/12/17 14:37 IMPRESSION: Clear lungs. No acute abnormality. Mild emphysematous changes. No significant change from the prior study. D/ / Jose Banegas MD / Jose Banegas MD Interpreting Provider: Jose Banegas MD Consult Discharge Plan - Plan Referrals: Tl Almanzar,Kapil Yun [Primary Care Provider] -
[2017-12-12] MEDS: Acetaminophen 325 MG TABLET PO PRN (17:41)
[2017-12-13 01:21] LABS: Hematocrit 36.8 % (37.5-50.1); Hemoglobin 12.8 g/dL (12.9-16.9); Mean Corpuscular HGB Conc 34.8 g/dL (31.6-35.5); Mean Corpuscular Hemoglobin 33.2 pg (28.0-33.3); Mean Corpuscular Volume 95.6 fL (83.0-100.0); Mean Platelet Volume 8.9 fL (9.4-12.4); Platelet Count 199 K/mcL (140-400); Red Blood Count 3.85 M/mcL (4.19-5.50); Red Cell Distribution Width 13.1 % (11.5-14.5)
[2017-12-13 01:41] LABS: BUN/Creatinine Ratio 18 (6-26); Blood Urea Nitrogen 15 mg/dL (8-23); Calcium 8.6 mg/dL (8.6-10.3); Carbon Dioxide 27 mEq/L (23-29); Chloride 100 mEq/L (98-107); Glucose 107 mg/dL (70-105); Magnesium 2.1 mg/dL (1.6-2.6); Osmolality,Calculated 275 (280-300); Potassium 3.9 mEq/L (3.5-5.1); Sodium 132 mEq/L (136-145); eGFR For African Americans > 60 (> 60); eGFR For Non-African Americans > 60 (> 60)
[2017-12-13] MEDS: *HR* Heparin 5,000 UNIT/ML VIAL SQ SCH (06:06)
[2017-12-13] MEDS: Levothyroxine 25 MCG TABLET PO SCH (06:07)
[2017-12-13] MEDS: Gabapentin 100 MG CAPSULE PO SCH (07:16)
[2017-12-13] MEDS: Aspirin Enteric Coated 81 MG Tablet PO SCH (07:16)
[2017-12-13] MEDS: Multivit/Ca/Min/Fe/FA 1 TAB TABLET PO SCH ×2 (07:17)
[2017-12-13] MEDS: Cholecalciferol (D-3) 1,000 UNIT TABLET PO SCH (07:17)
[2017-12-13] MEDS: OMEGA PO SCH (07:17)
[2017-12-13] MEDS: Finasteride 5 MG TABLET PO SCH (07:17)
--- NOTE | 2017-12-13 13:45 | Anesthesia Evaluation PreOp ---
Date of Encounter: 12/13/17 Time of Encounter: 13:42 - Past History Planned Operation: Kyphoplasty L3 Cardiac History: HTN Pulmonary History: Smoker, COPD VENDING TECHNICIAN History: Denies Any Significant HX Other Medical History: Denies Any Significant HX Anesthesia History: No Prior Anesthetic Complications, Past Anesthesia (cataract , herniorrhaphy, hip replacement, orthopedic, other, vasectomy, L3-5 Laminectomy 2016) Alcohol Use: none Drug use: none Medications and Allergies Acetaminophen [Tylenol] 500 mg PO Q6HR PRN 12/11/17 [History] Ascorbic Acid [Vitamin C with Kita Hips] 500 mg PO DAILY 12/11/17 [History] Aspirin [Lo-Dose Aspirin EC] 81 mg PO DAILY 12/11/17 [History] C,E,Zinc,Copper 11/Gttgm9z/Lut [Ocuvite Adult 50 Plus Softgel] 1 cap PO DAILY [History] Calcitonin,[place],Synthetic [Calcitonin-[place]] 1 spr NS DAILY 12/11/17 [History ] Calcium Carbonate [Calcium] 1,000 mg PO DAILY 12/11/17 [History] Captopril [Capoten] 6.25 mg PO DAILY 12/11/17 [History] DiphenhydraMINE [Benadryl] 25 mg PO HS PRN 12/11/17 [History] Docusate [Colace] 100 mg PO QID PRN 12/11/17 [History] Ergocalciferol (VITAMIN D2) [Vitamin D] 400 unit PO DAILY 12/11/17 [History] Ferrous Sulfate [Iron] 325 mg PO DAILY 12/11/17 [History] Finasteride [Proscar] 5 mg PO DAILY 12/11/17 [History] Levothyroxine [Synthroid] 12.5 mcg PO 30 12/11/17 [History] Multivitamin [One Daily Multivitamin] 1 tab PO DAILY 12/11/17 [History] [facility] [facility]-3/Dha/Epa/Fish Oil [Fish Oil 1,000 mg Softgel] 2 cap PO DAILY 12/11/17 [ History] Omeprazole [PriLOSEC] 20 mg PO BID 12/11/17 [History] Simvastatin [Zocor] 40 mg PO HS 12/11/17 [History] Terazosin HCl 10 mg PO DAILY 12/11/17 [History] 3 Allergy/AdvReac Type Severity Reaction Status Date / Time No Known Allergies Allergy Verified 12/11/17 12:19 - Meds/Allergy Pre-op Review Medications Reviewed: Yes Allergies Reviewed: Yes Beta Blockers on Current Med List: No Anesthesia Results - Labs 12/13/17 01:07 12/13/17 01:07 Echocardiogram Name: Nessa Mcgregor Date of Study: 09/01/2017 Impressions: LVEF 60%. Normal LV chamber size and function. Asymmetric hypertrophy of the basal septum. Mild left ventricular diastolic dysfunction. Normal right ventricular structure and function. Moderately calcified, trileaflet aortic valve. Mild aortic regurgitation. Mild aortic stenosis. Mean gradient 15 mmHg. Peak velocity 2.73 m/s. These gradients are lower than prior report from 04/2015 (mean gradient 19 mmHg, peak velocity 3.08 m/s). Visually, the severity of appears at least moderate. Mild mitral regurgitation. Mild pulmonary hypertension. - Imaging EKG: report reviewed (SR Occ. PVC's) Anesthesia Exam Vital Signs/O2 Sat, Most Current Temp Pulse Resp BP Pulse Ox 97.8 F 58 16 162/77 95 12/13/17 11:12 12/13/17 11:12 12/13/17 11:12 12/13/17 11:12 12/13/17 11:12 NPO (# of Hours): > 8 hrs Pain Scale: 0 Pain Scale Used: Numeric (1 - 10) - HEENT Pupil (Motor): Pupils equal, EOMI Mallampati: II Teeth: Missing Oral Opening: Greater than 3 - VENDING TECHNICIAN LOC: Oriented VENDING TECHNICIAN Motor: Normal RUE, Normal LUE, Normal RLE, Normal LLE, Normal Face VENDING TECHNICIAN Sensory: Normal: RUE, LUE, RLE, LLE, Face - Cardiac Rhythm: Regular Murmur: None JVD: No Carotid Bruit: No - Pulmonary Breath Sounds: bilateral Clear Respiratory Effort: Symmetrical Anesthesia Assess/Plan ASA Score: 3 Modified Aiden Scale for Level of Consciousness: Cooperative, oriented, and tranquil Anesthetic Plan: General Autologous Blood: Yes Monitoring Plan: Standard Monitors Recovery Plan: PACU
[2017-12-13] MEDS ORDERED: Ondansetron 4 MG/2 ML VIAL ONE (14:26)
[2017-12-13] MEDS ORDERED: Lidocaine -MPF 2% 2 ML VIAL ONE (14:26)
[2017-12-13] MEDS ORDERED: Lidocaine -MPF 4% 5 ML AMPUL ONE (14:26)
[2017-12-13] MEDS ORDERED: *HR* Propofol 200 MG/20 ML VIAL IVP ONE (14:26)
[2017-12-13] MEDS ORDERED: *HR* Midazolam HCl 2 MG/2 ML VIAL ONE (14:26)
[2017-12-13] MEDS ORDERED: Dexamethasone 4 MG/ML VIAL ONE (14:26)
[2017-12-13] MEDS ORDERED: *HR* FentaNYL (PF) 100 MCG/2 ML VIAL ONE (14:26)
[2017-12-13] MEDS ORDERED: *HR* Succinylcholine 200 MG/10 ML VIAL IVP ONE (14:26)
--- NOTE | 2017-12-13 15:17 | Spine Progress Note ---
Date of Encounter: 12/13/17 Time of Encounter: 15:15 - Assessment and Plan (1) Osteopenia Current Visit: Yes Status: Chronic On exam he is neurovascularly intact with regard to his bilateral lower extremities. He has tenderness to palpation over the mid lumbar region. He has no clonus. His hips move symmetrically. CT examination of the lumbar spine reveals a markedly collapsed vertebral compression fracture at L3. There are multilevel degenerative changes apparent. There is been previous kyphoplasty performed proximally. Impression: 1) osteopenia 2) vertebral compression fracture L3 Plan: Due to his intractable pain despite narcotics and functional limitations of find it reasonable consider surgery in the form of a kyphoplasty L3. Risk benefits possible complications and alternatives were discussed and the patient would like to proceed. Qualifiers: Osteopenia location: lumbar spine Qualified Code(s): M85.88 - Other specified disorders of bone density and structure, other site Subjective Principal diagnosis: Vertebral compression fracture, history of osteoporosis Interval history: Mr. ontiveros is an 87-year-old gentleman well known to the practice is had previous laminectomy as well as kyphoplasty for vertebral compression fracture. He was doing well in his usual state of health and then was lifting 60 pound bags of gravel and felt a sharp pain in his back several days ago. Due to his intractable pain and was evaluated in the emergency department where CT scan revealed an acute compression fracture. Patient was admitted for definitive management. He denies any bowel bladder symptomatology, weakness in lower extremities, or focal neurologic deficit. He rates the pain as a 8 on a pain scale. Objective Vital signs: Vital Signs Temp Pulse Resp BP Pulse Ox 12/13/17 11:12 97.8 F 58 16 162/77 95 12/13/17 07:07 97.8 F 76 16 120/79 95 12/12/17 22:31 97.6 F 55 16 175/74 95 12/12/17 18:26 97.7 F 60 14 113/61 95 Intake and Output 12/12/17 12/13/17 12/13/17 23:59 07:59 15:59 Intake Total 600 / 600 Output Total 650 / 650 200 / 200 Balance -50 / -50 -200 / -200 Intake: Oral 600 / 600 Output: Urine 650 / 650 200 / 200 Other: Meal Dinner Percent of Meal Consumed 60% Stool Size Moderate Stool Consistency soft formed Stool Color Brown - Labs CBC & BMP: 12/13/17 01:07 12/13/17 01:07 Labs: Abnormal lab results WBC 4.2 K/mcL (4.3-11.1) L 12/13/17 01:07 RBC 3.85 M/mcL (4.19-5.50) L 12/13/17 01:07 Hgb 12.8 g/dL (12.9-16.9) L 12/13/17 01:07 Hct 36.8 % (37.5-50.1) L 12/13/17 01:07 MPV 8.9 fL (9.4-12.4) L 12/13/17 01:07 Sodium 132 mEq/L (136-145) L 12/13/17 01:07 Glucose 107 mg/dL (70-105) H 12/13/17 01:07 Calculated Osmolality 275 (280-300) L 12/13/17 01:07 Serum Total Protein 5.6 g/dL (6.4-8.9) L 12/11/17 05:33 Globulin 2.0 g/dL (2.4-3.5) L 12/11/17 05:33 HDL Cholesterol 75 mg/dL (40-59) H 12/11/17 05:33 Ur Leukocyte Esterase Small (Negative) H 12/10/17 23:56 Ur Squamous Epith Cells Moderate per lpf (None-Few) H 12/10/17 23:56 Ur Culture Indicated? YES (NO) A 12/10/17 23:56 Consult Discharge Plan - Plan Referrals: Tl Almanzar,Kapil Yun [Primary Care Provider] -
[2017-12-13] MEDS ORDERED: MORPHINE SUL Oral CONC 10 MG/0.5 ML ORAL.SYG SL PRN (15:22)
[2017-12-13] MEDS ORDERED: *HR* HYDROmorphone 2 MG TABLET PO PRN (15:22)
[2017-12-13] MEDS ORDERED: Ondansetron 4 MG/2 ML VIAL IVP ONE (15:22)
[2017-12-13] MEDS ORDERED: *HR* OxyCODONE Immed Rel 5 MG TABLET PO PRN (15:22)
[2017-12-13] MEDS ORDERED: EPHEDrine 50 MG/ML VIAL ONE (15:54)
[2017-12-13] MEDS ORDERED: *HR* Phenylephrine 10 MG/ML VIAL ONE (16:22)
--- NOTE | 2017-12-13 16:40 | Orthopedic Operative Note ---
Date of procedure: 12/13/17 Pre-op diagnosis: Osteopenia, vertebral compression fracture Post-op diagnosis: same Operation/Findings: Kyphoplasty L3: The patient was brought to the operative theater where successful endotracheal anesthesia was performed. The patient was given antibiotics prior to the start of the procedure. Compression boots and stockings were used for deep vein thrombosis. Patient was then turned prone on a well-padded Mika table. The back was prepped and draped in the usual sterile fashion. 2 C-arm fluorographic devices were brought into position such that simultaneous AP and lateral views centered over the involved vertebral body could be performed. A stab incision was made over the superior-lateral aspect of the pedicle. We introduced a Jamshidi needle into the vertebral body via a transpedicular route. We took biplanar images of the vertebral body using fluorography. The needle was found to be in appropriate position and within the confines of the vertebral body. We then introduced a biopsy trocar and obtained a biopsy specimen of the vertebral body. This was sent for pathologic evaluation. We then removed the biopsy trocar and introduced a Kyphon balloon. The balloon was insufflated to approximately 5 mL volume and subsequently deflated. The balloon was seen to expand within the confines of the vertebral body on biplanar fluorographic views. The balloon was then removed. Within and some inserted cement trochars and sequentially placed bone cement within the confines of the vertebral body. We took intermittent fluorographic views which confirmed satisfactory placement of the cement. After completion of the cementation process, the trocar was removed. We took final AP and lateral fluorographic views. We then closed the stab incision with 2-0 nylon suture. A Band-Aid was placed over the wound. The patient was turned supine on a hospital bed and extubated. All sponge instrument and needle counts were correct at the end of the procedure. The patient tolerated the procedure well without complications. Anesthesia: GETA Surgeon: Ike Humphrey Was there an entry level assistant manager present: No Estimated blood loss (cc): 4 Specimen: L3 vertebral biopsy Condition: stable Disposition: PACU
--- NOTE | 2017-12-13 17:18 | Anesthesia Evaluation Post Op ---
Date of Encounter: 12/13/17 Time of Encounter: 17:17 - Vital Signs Vital Signs: Vital Signs/O2 Sat, Most Current Temp Pulse Resp BP Pulse Ox 97.9 F 80 16 134/69 95 12/13/17 17:17 12/13/17 17:17 12/13/17 17:17 12/13/17 17:17 12/13/17 17:17 - Lungs Lungs: Clear Ascult./Percussion - Airway Airway: Non-obstructed - Cardiovascular Regular Rate - Mental Status Mental Status: Alert & Oriented, Answers Appropriately - Pain Pain Scale: 0 Pain Scale used: Numeric (1 - 10) - Nausea Vomiting Nausea Vomiting: Not Present - Hydration Hydration: NPO, Has not voided - Discharge PostOp Status: Transfer Patient to floor
--- NOTE | 2017-12-13 17:19 | Internal Med Progress Note ---
Date of Encounter: 12/13/17 Time of Encounter: 14:30 - Assessment and plan (1) Compression fracture of lumbar vertebra Current Visit: Yes Status: Acute Assessment and plan: To have kyphoplasty today. Continue pain control. Qualifiers: Encounter type: subsequent encounter Lumbar vertebra fracture level: L3 Fracture type: closed Fracture healing: with routine healing Qualified Code( s): S32.030D - Wedge compression fracture of third lumbar vertebra, subsequent encounter for fracture with routine healing (2) Lumbar back pain Current Visit: No Status: Acute Assessment and plan: Pain management. Plan for kyphoplasty today. Qualifiers: Chronicity: chronic Back pain laterality: midline Sciatica presence: without sciatica Qualified Code(s): M54.5 - Low back pain; G89.29 - Other chronic pain (3) Hypothyroid Current Visit: No Status: Chronic Assessment and plan: Continue supplement. Qualifiers: Hypothyroidism type: acquired Qualified Code(s): E03.9 - Hypothyroidism, unspecified (4) HTN (hypertension) Current Visit: No Status: Chronic Assessment and plan: Fair control at this time. Continue meds. Qualifiers: Hypertension type: essential hypertension Qualified Code(s): I10 - Essential (primary) hypertension (5) Hyponatremia Current Visit: No Status: Chronic Assessment and plan: About the same. Continue as is for now. (6) Constipation Current Visit: No Status: Resolved Assessment and plan: Supportive care at this time. Qualifiers: Constipation type: slow transit constipation Qualified Code(s): K59.01 - Slow transit constipation (7) DVT prophylaxis Current Visit: No Status: Acute - Time Spent With Patient Total time spent is greater than 50% in coordination of care (as documented) at patient's floor/unit and/or counseling patient: - Subjective Interval history: Mr Mcgregor is currently admitted for compression fracture of lumbar spine. He remains moderate to high risk at this time. Mr Mcgregor is going to OR today for kyphoplasty. No fever or chills. No other complaints at this time. Family at bedside. - Constitutional Vitals: Temp Pulse Resp BP Pulse Ox 98.3 F 84 16 141/76 95 12/13/17 16:57 12/13/17 16:57 12/13/17 16:57 12/13/17 16:57 12/13/17 16:57 General appearance: Present: A&O X 3 - Head Head exam: Present: normocephalic - Eye Eye exam: Present: conjuntiva pink - ENT ENT exam: Present: mucous membranes moist - Respiratory Respiratory exam: Absent: rhonchi, wheezes - Cardiovascular Cardiovascular exam: Present: RRR. Absent: tachycardia - GI/Abdominal GI/Abdominal exam: Present: normal bowel sounds. Absent: tenderness - Extremities Exam Extremities exam: Present: warm. Absent: tenderness - Neurological Exam Neurological exam: Present: alert, oriented X3 Internal Medicine: Result - Labs CBC & Chem 7: 12/13/17 01:07 12/13/17 01:07 - ABG Interpretation ABG results: PT/INR, D-dimer PT 11.0 Seconds (9.4-12.1) 12/11/17 05:33 Consult Discharge Plan - Plan Referrals: Tl Almanzar,aKpil Yun [Primary Care Provider] -
[2017-12-13] MEDS ORDERED: Ondansetron 4 MG/2 ML VIAL IVP PRN (17:24)
[2017-12-13] MEDS ORDERED: Ringers Solution, Lactated 1,000 ML IVC SCH (17:24)
[2017-12-13] MEDS: *HR* OxyCODONE Immed Rel 5 MG TABLET PO PRN (17:59)
[2017-12-13] MEDS ORDERED: *HR* Heparin 5,000 UNIT/ML VIAL SQ SCH (18:00)
[2017-12-14] MEDS: *HR* OxyCODONE Immed Rel 5 MG TABLET PO PRN ×3 (01:19→15:03)
[2017-12-14 01:25] LABS: Hematocrit 35.4 % (37.5-50.1); Mean Corpuscular HGB Conc 33.9 g/dL (31.6-35.5); Mean Corpuscular Volume 94.4 fL (83.0-100.0); Mean Platelet Volume 8.9 fL (9.4-12.4); Platelet Count 201 K/mcL (140-400); Red Blood Count 3.75 M/mcL (4.19-5.50); Red Cell Distribution Width 13.2 % (11.5-14.5)
[2017-12-14 01:45] LABS: BUN/Creatinine Ratio 17 (6-26); Blood Urea Nitrogen 14 mg/dL (8-23); Calcium 8.7 mg/dL (8.6-10.3); Carbon Dioxide 23 mEq/L (23-29); Chloride 100 mEq/L (98-107); Glucose 155 mg/dL (70-105); Osmolality,Calculated 278 (280-300); Potassium 4.5 mEq/L (3.5-5.1); Sodium 132 mEq/L (136-145); eGFR For African Americans > 60 (> 60); eGFR For Non-African Americans > 60 (> 60)
--- NOTE | 2017-12-14 06:14 | Electrocardiograph Report ---
[address] [place], [place] [address] Test Date: 2017-12-12 Pat Name: Nessa Mcgregor Department: 114 Room: [facility] Gender: Lead Project Engineer: : [id number] Requested By: Ralph Bermudez Order Number: [id number] Reading MD: Navneet Garrett Measurements Intervals [place] Rate: 78 P: GA: 0 QRS: -9 QRSD: 91 T: 61 QT: 378 QTc: 411 Interpretive Statements SINUS RHYTHM W PACS AND PVCS Electronically Signed On 12-14-2017 6:12:52 EDT by Navneet Garrett
--- NOTE | 2017-12-14 06:15 | Electrocardiograph Report ---
[address] [place], [place] [address] Test Date: 2017-12-12 Pat Name: Nessa Mcgregor Department: 114 Room: [facility] Gender: M Production Operations Manager: : [id number] Requested By: Ike Humphrey Order Number: [id number] Reading MD: Navneet Garrett Measurements Intervals [place] Rate: 79 P: 85 MS: 170 QRS: -9 QRSD: 83 T: 53 QT: 374 QTc: 409 Interpretive Statements SINUS RHYTHM WITH OCCASIONAL SUPRAVENTRICULAR PREMATURE COMPLEXES Electronically Signed On 12-14-2017 6:13:08 EDT by Navneet Garrett
[2017-12-14] MEDS ORDERED: Levothyroxine 25 MCG TABLET PO SCH (06:30)
--- NOTE | 2017-12-14 08:30 | Orthopedics Progress Note ---
Date of Encounter: 12/14/17 Time of Encounter: 08:29 - Assessment and Plan (1) History of osteoporosis Status: Chronic (2) Compression fracture of lumbar vertebra Status: Resolved Qualifiers: Encounter type: subsequent encounter Lumbar vertebra fracture level: L3 Fracture type: closed Fracture healing: with routine healing Qualified Code( s): S32.030D - Wedge compression fracture of third lumbar vertebra, subsequent encounter for fracture with routine healing Subjective Principal diagnosis: Vertebral compression fracture, history of osteoporosis Interval history: POD#1 Date of procedure: 12/13/17 Pre-op diagnosis: Osteopenia, vertebral compression fracture Post-op diagnosis: same Operation/Findings: Kyphoplasty L3 The patient is without complaints. He states his pain has returned to baseline. Afebrile vital signs are stable. Incision is clean dry and intact. Neurovascularly intact with regard to bilateral lower extremities. Fires all upper and lower extremity motor groups. Assessment: Stable postoperative. Plan: Reviewed postoperative restrictions and precautions. Patient verbalized understanding. Mobilize with therapy Continue analgesics as needed Discharge planning - awaiting therapy recommendations and per Hospitalist approval Keep outpatient follow up as scheduled Objective Vital signs: Vital Signs Temp Pulse Resp BP Pulse Ox 12/14/17 06:22 98.3 F 63 16 134/71 96 12/14/17 03:55 98.0 F 61 14 146/74 96 12/14/17 00:15 97.8 F 64 14 136/75 96 12/13/17 19:30 97.8 F 80 16 132/73 93 12/13/17 18:36 97.6 F 73 15 128/74 95 12/13/17 17:59 97.6 F 74 16 149/78 95 12/13/17 17:30 97.5 F L 71 15 136/71 93 12/13/17 17:17 97.9 F 80 16 134/69 95 12/13/17 17:07 97.9 F 82 16 129/61 95 12/13/17 16:57 98.3 F 84 16 141/76 95 12/13/17 16:47 98.3 F 84 14 142/78 97 Intake and Output 12/13/17 12/14/17 12/14/17 23:59 07:59 15:59 Intake Total 100 / 100 400 / 400 Output Total 404 / 404 400 / 400 Balance -304 / -304 0 / 0 Intake: Oral 100 / 100 400 / 400 Output: Urine 400 / 400 400 / 400 Estimated Blood Loss 4 / 4 - Labs CBC & BMP: 12/14/17 01:00 12/14/17 01:00 Labs: Abnormal lab results RBC 3.75 M/mcL (4.19-5.50) L 12/14/17 01:00 Hgb 12.0 g/dL (12.9-16.9) L 12/14/17 01:00 Hct 35.4 % (37.5-50.1) L 12/14/17 01:00 MPV 8.9 fL (9.4-12.4) L 12/14/17 01:00 Sodium 132 mEq/L (136-145) L 12/14/17 01:00 Glucose 155 mg/dL (70-105) H 12/14/17 01:00 Calculated Osmolality 278 (280-300) L 12/14/17 01:00 Serum Total Protein 5.6 g/dL (6.4-8.9) L 12/11/17 05:33 Globulin 2.0 g/dL (2.4-3.5) L 12/11/17 05:33 HDL Cholesterol 75 mg/dL (40-59) H 12/11/17 05:33 Ur Leukocyte Esterase Small (Negative) H 12/10/17 23:56 Ur Squamous Epith Cells Moderate per lpf (None-Few) H 12/10/17 23:56 Ur Culture Indicated? YES (NO) A 12/10/17 23:56 - VTE Documentation of Mechanical Device: Venous foot pump, device Consult Discharge Plan - Plan Instructions: Kyphoplasty (DC) Referrals: Kapil Boothe D.O. [Primary Care Provider] - Prescriptions: OxyCODONE Immed Rel [Roxicodone 5 MG] 5 mg PO Q4H PRN 3 Days #10 tablet PRN Reason: Pain
[2017-12-14] MEDS ORDERED: Finasteride 5 MG TABLET PO SCH (09:00)
[2017-12-14] MEDS ORDERED: (Omega-3/Dha/Epa/Fish Oil [Fish Oil 1,000 Mg Softgel] PO SCH (09:00)
[2017-12-14] MEDS ORDERED: Ascorbic Acid 500 MG TABLET PO SCH (09:00)
[2017-12-14] MEDS ORDERED: Cholecalciferol (D-3) 1,000 UNIT TABLET PO SCH (09:00)
[2017-12-14] MEDS ORDERED: Multivit/Ca/Min/Fe/FA 1 TAB TABLET PO SCH (09:00)
[2017-12-14] MEDS ORDERED: Aspirin Enteric Coated 81 MG Tablet PO SCH (09:00)
[2017-12-14 12:03] VITALS: BP 161/75
--- NOTE | 2017-12-14 14:07 | Discharge Summary ---
<Joao Calvillo S - Last Filed: 12/14/17 14:05> - NOTES TO OUTPATIENT PROVIDER Notes to Outpatient Provider: Pt came with LBP and was found to have vertebral fx at L3. He had lamectomy. PT evaluated, he is able to ambulate and can go home. Orders not resulted at time of discharge: Pending orders 12/13/17 16:13 Surgical Pathology [PTH] Routine Date of Encounter: 12/14/17 Time of Encounter: 08:50 - Discharge Diagnosis (1) Lumbar back pain Priority: Secondary Status: Chronic Qualifiers: Chronicity: acute Back pain laterality: midline Sciatica presence: without sciatica Qualified Code(s): M54.5 - Low back pain (2) Hypothyroid Priority: Secondary Status: Chronic Qualifiers: Hypothyroidism type: acquired Qualified Code(s): E03.9 - Hypothyroidism, unspecified (3) HTN (hypertension) Priority: Secondary Status: Chronic Qualifiers: Hypertension type: essential hypertension Qualified Code(s): I10 - Essential (primary) hypertension (4) Constipation Priority: Secondary Status: Chronic Qualifiers: Constipation type: slow transit constipation Qualified Code(s): K59.01 - Slow transit constipation (5) Hyponatremia Priority: Secondary Status: Chronic (6) DVT prophylaxis Priority: Secondary Status: Acute (7) Compression fracture of lumbar vertebra Priority: Primary Status: Resolved Qualifiers: Encounter type: subsequent encounter Lumbar vertebra fracture level: L3 Fracture type: closed Fracture healing: with routine healing Qualified Code( s): S32.030D - Wedge compression fracture of third lumbar vertebra, subsequent encounter for fracture with routine healing Hospital course: Mr. Mcgregor is a 87 year old male who came in for lumbar back pain and was found to have compression fx of L3. He had lumbar kyphoplasty yesterday and is stable. PTOT evaluated and he is able to be discharged. He is ambulating, eating , and is clear for discharge. He was given pain medication on discharge, oxycodone x10. He has follow up with PCP and orthopedic surgery. He is being discharged home with home health/physical therapy. Discharge discussed with: patient, nurse Time spent discussing smoking cessation with patient: 3 to 10 minutes - Time Spent with Patient Total time spent providing and/or coordinating discharge services: Less than 30 minutes Specific discharge activities: No heavy lifting. - Discharge Medications Prescriptions: OxyCODONE Immed Rel [Roxicodone 5 MG] 5 mg PO Q4H PRN 3 Days #10 tablet PRN Reason: Pain Home Medications: Acetaminophen [Tylenol] 500 mg PO Q6HR PRN 12/11/17 [History] Ascorbic Acid [Vitamin C with Kita Hips] 500 mg PO DAILY 12/11/17 [History] Aspirin [Lo-Dose Aspirin EC] 81 mg PO DAILY 12/11/17 [History] C,E,Zinc,Copper 11/Aleta8d/Lut [Ocuvite Adult 50 Plus Softgel] 1 cap PO DAILY [History] Calcitonin,[place],Synthetic [Calcitonin-[place]] 1 spr NS DAILY 12/11/17 [History ] Calcium Carbonate [Calcium] 1,000 mg PO DAILY 12/11/17 [History] Captopril [Capoten] 6.25 mg PO DAILY 12/11/17 [History] DiphenhydraMINE [Benadryl] 25 mg PO HS PRN 12/11/17 [History] Docusate [Colace] 100 mg PO QID PRN 12/11/17 [History] Ergocalciferol (VITAMIN D2) [Vitamin D] 400 unit PO DAILY 12/11/17 [History] Ferrous Sulfate [Iron] 325 mg PO DAILY 12/11/17 [History] Finasteride [Proscar] 5 mg PO DAILY 12/11/17 [History] Levothyroxine [Synthroid] 12.5 mcg PO 0630 12/11/17 [History] Multivitamin [One Daily Multivitamin] 1 tab PO DAILY 12/11/17 [History] [place]-3/Dha/Epa/Fish Oil [Fish Oil 1,000 mg Softgel] 2 cap PO DAILY 12/11/17 [ History] Omeprazole [PriLOSEC] 20 mg PO BID 12/11/17 [History] Simvastatin [Zocor] 40 mg PO HS 12/11/17 [History] Terazosin HCl 10 mg PO DAILY 12/11/17 [History] OxyCODONE Immed Rel [Roxicodone 5 MG] 5 mg PO Q4H PRN 3 Days #10 tablet [Rx] Allergies/Adverse Reactions: 3 Allergy/AdvReac Type Severity Reaction Status Date / Time No Known Allergies Allergy Verified 12/11/17 12:19 Date of admission: 12/13/17 15:40 Primary care physician: Kapil Boothe D.O. Consults: 12/13/17 17:24 Consult to Physical Therapy [CONS] Routine Comment: Evaluate, develop and implement POC Reason for Consult: Postoperative rehabilitation Does patient have active BEDREST order?: No Is patient medically & hemodynamically stable?: Yes Patient assessed for mobility or mobilized this visit?: No Consult to Machine Maintenance Supervisor [CONS] Routine Reason for SW Consult: Postoperative rehabilitation Discharging clinician: Joao Calvillo Anticipated date of discharge: 12/14/17 - Constitutional Vitals: Temp Pulse Resp BP Pulse Ox 98.2 F 66 16 161/75 96 12/14/17 11:56 12/14/17 11:56 12/14/17 11:56 12/14/17 11:56 12/14/17 11:56 General appearance: Present: A&O X 3 - Head Head exam: Present: atraumatic, normal inspection - ENT ENT exam: Present: mucous membranes moist, normal exam - Neck Neck exam general surgery: Present: normal inspection - Respiratory Respiratory exam: Present: CTAB - Cardiovascular Cardiovascular exam: Present: systolic murmur (aortic stenosis) - Expanded Cardiovascular Exam Type of murmur: Present: crescendo Location: Present: LUSB - GI/Abdominal GI/Abdominal exam: Present: normal bowel sounds, soft - Extremities Exam Extremities exam: Present: normal inspection, warm - Incison Incision: Present: clean and dry - Neurological Exam Neurological exam: Present: alert, oriented X3, no focal deficits - Skin Skin exam: Present: normal color, warm - Patient Status Disposition: Home Health Service Condition: Fair Functional capacity at discharge: uses cane/walker Overall status at discharge: patient is progressing back to baseline - Discharge Instructions Instructions: Kyphoplasty (DC) Follow Up With: Kapil oBothe D.O. [Primary Care Provider] - Forms: ED Satisfaction Letter - Diet and Activity Activity: as per physical therapy, increase activity as tolerated Diet: regular diet - VTE Documentation of Mechanical Device: Venous foot pump, device <Omer Person - Last Filed: 12/14/17 23:16> Orders not resulted at time of discharge: Pending orders 12/13/17 16:13 Surgical Pathology [PTH] Routine Date of Encounter: 12/14/17 - Discharge Diagnosis (1) DVT prophylaxis Status: Acute (2) Lumbar back pain Status: Chronic Qualifiers: Chronicity: acute Back pain laterality: midline Sciatica presence: without sciatica Qualified Code(s): M54.5 - Low back pain (3) Hypothyroid Status: Chronic Qualifiers: Hypothyroidism type: acquired Qualified Code(s): E03.9 - Hypothyroidism, unspecified (4) HTN (hypertension) Status: Chronic Qualifiers: Hypertension type: essential hypertension Qualified Code(s): I10 - Essential (primary) hypertension (5) Constipation Status: Chronic Qualifiers: Constipation type: slow transit constipation Qualified Code(s): K59.01 - Slow transit constipation (6) Hyponatremia Status: Chronic (7) Compression fracture of lumbar vertebra Status: Resolved Qualifiers: Encounter type: subsequent encounter Lumbar vertebra fracture level: L3 Fracture type: closed Fracture healing: with routine healing Qualified Code( s): S32.030D - Wedge compression fracture of third lumbar vertebra, subsequent encounter for fracture with routine healing Hospital course: Mr. Mcgregor is a 87 year old male - Time Spent with Patient Total time spent providing and/or coordinating discharge services: Date of admission: 12/13/17 15:40 Primary care physician: Kapil Boothe D.O. Consults: 12/13/17 17:24 Consult to Physical Therapy [CONS] Routine Comment: Evaluate, develop and implement POC Reason for Consult: Postoperative rehabilitation Does patient have active BEDREST order?: No Is patient medically & hemodynamically stable?: Yes Patient assessed for mobility or mobilized this visit?: No Consult to Machine Maintenance Supervisor [CONS] Routine Reason for SW Consult: Postoperative rehabilitation - Constitutional Vitals: Temp Pulse Resp BP Pulse Ox 98.2 F 66 16 161/75 96 12/14/17 11:56 12/14/17 11:56 12/14/17 11:56 12/14/17 11:56 12/14/17 11:56 - Attending Attestation I examined this patient and my medical decision-making was reviewed with the Resident Physician. I agree with the documented findings, disposition and treatment plan as described except to the extent set forth below.
--- NOTE | 2017-12-14 14:59 | Physician Discharge Referral ---
Home Health/Hosp Referral Info Transfer to: Home Health Attending Provider: Dr. Person Provider in Charge Post Discharge: PCP - Diagnosis (1) Compression fracture of lumbar vertebra Priority: Primary Status: Resolved (2) Lumbar back pain Priority: Secondary Status: Chronic (3) Hypothyroid Priority: Secondary Status: Chronic (4) HTN (hypertension) Priority: Secondary Status: Chronic (5) Constipation Priority: Secondary Status: Chronic (6) Hyponatremia Priority: Secondary Status: Chronic (7) DVT prophylaxis Priority: Secondary Status: Acute - Respiratory Orders None Smoking Cessation: Smoking cessation has been advised. For more information, call the [place] Tobacco Quit Line at 7-866-HZAC-NOW. - Diet/Nutrition Diet/Nutrition Orders: Regular - Activity Activity Orders: Walker - Services Needed Following services are medically necessary services: Nursing, Home Health Aide, Physical Therapy, Occupational Therapy - Transfer Medications Prescriptions: OxyCODONE Immed Rel [Roxicodone 5 MG] 5 mg PO Q4H PRN 3 Days #10 tablet PRN Reason: Pain Home Medications: Acetaminophen [Tylenol] 500 mg PO Q6HR PRN 12/11/17 [History] Ascorbic Acid [Vitamin C with Kita Hips] 500 mg PO DAILY 12/11/17 [History] Aspirin [Lo-Dose Aspirin EC] 81 mg PO DAILY 12/11/17 [History] C,E,Zinc,Copper 11/Anodg7z/Lut [Ocuvite Adult 50 Plus Softgel] 1 cap PO DAILY [History] Calcitonin,[place],Synthetic [Calcitonin-[place]] 1 spr NS DAILY 12/11/17 [History ] Calcium Carbonate [Calcium] 1,000 mg PO DAILY 12/11/17 [History] Captopril [Capoten] 6.25 mg PO DAILY 12/11/17 [History] DiphenhydraMINE [Benadryl] 25 mg PO HS PRN 12/11/17 [History] Docusate [Colace] 100 mg PO QID PRN 12/11/17 [History] Ergocalciferol (VITAMIN D2) [Vitamin D] 400 unit PO DAILY 12/11/17 [History] Ferrous Sulfate [Iron] 325 mg PO DAILY 12/11/17 [History] Finasteride [Proscar] 5 mg PO DAILY 12/11/17 [History] Levothyroxine [Synthroid] 12.5 mcg PO 0630 12/11/17 [History] Multivitamin [One Daily Multivitamin] 1 tab PO DAILY 12/11/17 [History] [place]-3/Dha/Epa/Fish Oil [Fish Oil 1,000 mg Softgel] 2 cap PO DAILY 12/11/17 [ History] Omeprazole [PriLOSEC] 20 mg PO BID 12/11/17 [History] Simvastatin [Zocor] 40 mg PO HS 12/11/17 [History] Terazosin HCl 10 mg PO DAILY 12/11/17 [History] OxyCODONE Immed Rel [Roxicodone 5 MG] 5 mg PO Q4H PRN 3 Days #10 tablet [Rx] Allergies/Adverse Reactions: 3 Allergy/AdvReac Type Severity Reaction Status Date / Time No Known Allergies Allergy Verified 12/11/17 12:19 Certification: Further, I certify that my clinical findings support that this patient is homebound (i.e. absences from home require considerable and taxing effort and are for medical reasons or episcopal services or infrequently or short duration when for other reasons) because: Homebound Reason: Patient requires assistance of a person or device to safely leave home Attestation: My signature below is to certify that this patient is under my care and that I, or nurse practitioner, or a physician's medical library assistant working with me, has a face-to -face encounter with this patient.
== END 2017-12-14 15:31 | disposition home health service (06) | DRG 478 ==
LOC: 3NENU 22:04 → EMEROO 22:04 → SUATTDRO 12-11 02:12 → 3NENU 12-11 02:47
PROVIDERS: ADMIT Internal Medicine Nephrology; ATTEND Internal Medicine

== ENCOUNTER 2018-06-26 11:30 | Inpatient (IN) ==
[2018-06-26] MEDS ORDERED: Naloxone 0.4 MG/ML INJ IVP PRN (13:24)
[2018-06-26] MEDS ORDERED: Sennosides/Docusate Sodium TABLET PO PRN (13:32)
--- NOTE | 2018-06-26 13:38 | Internal Med History&Physical ---
Date of Encounter: 06/26/18 Time of Encounter: 13:33 Internal Medicine - H&P: HPI Chief complaint: upper back pain Admitted From: Home Plans for Post Hospital Care: Home History of present illness: Mr. Mcgregor is a 88 year old male past medical history significant for osteoporosis, kyphoplasty 12/29, BPH, hypertension, esophageal cancer treated 10 years ago and hypothyroidism. Patient was transferred to [facility] from [facility] where he presented due to back pain. Patient reported the that yesterday afternoon he started shoveling snow and that at around 4:30pm he started having 10/10 sharp constant upper back pain, as the pain did not go away he went to the ED at [facility]. A CT of the spine was done and patient was diagnosed with compression fracture of T12-L1, for which he was sent to [facility] for further management. Jose corrigan reports that he did not fall. denies urinary incontinence or retention, bowel incontinence. denies worsening of his chronic lower extremity weakness. Past Med Surg Social Fam HX - Past Medical History Medical history: COPD, diabetes, hypertension, thyroid disease Additional medical history: esophageal cancer. skin cancer Psychiatric history: depression - Past Surgical History Surgical History: cataract, herniorrhaphy, hip replacement, orthopedic, other, vasectomy, other Additional surgical history: kyphoplasty (back), esophageal cancer surgery, skin cancer removed, hemrhoidectomy x2, toe surgery. RTHR. - Social History Smoking Status: Never smoker Smokeless Tobacco Status: No Alcohol use: none Drug use: none - Family History Mother Living Status: Hx Family Cancer: Yes Father Living Status: Hx Family Cancer: Yes (Prostate Cancer) Internal Medicine - H&P: Meds Acetaminophen [Tylenol] 500 mg PO Q6HR PRN 12/11/17 [History] Ascorbic Acid [Vitamin C with Kita Hips] 500 mg PO DAILY 12/11/17 [History] Aspirin [Lo-Dose Aspirin EC] 81 mg PO DAILY 12/11/17 [History] C,E,Zinc,Copper 11/Xtaba9d/Lut [Ocuvite Adult 50 Plus Softgel] 1 cap PO DAILY 12/11/17 [History] Calcitonin,[place],Synthetic [Calcitonin-[place]] 1 spr NS DAILY 12/11/17 [History] Calcium Carbonate [Calcium] 1,000 mg PO DAILY 12/11/17 [History] Captopril [Capoten] 6.25 mg PO DAILY 12/11/17 [History] DiphenhydraMINE [Benadryl] 25 mg PO HS PRN 12/11/17 [History] Docusate [Colace] 100 mg PO QID PRN 12/11/17 [History] Ergocalciferol (VITAMIN D2) [Vitamin D] 400 unit PO DAILY 12/11/17 [History] Ferrous Sulfate [Iron] 325 mg PO DAILY 12/11/17 [History] Finasteride [Proscar] 5 mg PO DAILY 12/11/17 [History] Levothyroxine [Synthroid] 12[place] [address]/11/17 [History] Multivitamin [One Daily Multivitamin] 1 tab PO DAILY 12/11/17 [History] [place]-3/Dha/Epa/Fish Oil [Fish Oil 1,000 mg Softgel] 2 cap PO DAILY 12/11/17 [History] Omeprazole [PriLOSEC] 20 mg PO BID 12/11/17 [History] Simvastatin [Zocor] 40 mg PO HS 12/11/17 [History] Terazosin HCl 10 mg PO DAILY 12/11/17 [History] OxyCODONE Immed Rel [Roxicodone 5 MG] 5 mg PO Q4H PRN 3 Days #10 tablet 12/14/17 [Rx] Allergy/AdvReac Type Severity Reaction Status Date / Time No Known Allergies Allergy Verified 12/11/17 12:19 All Systems PM: A 10-system review of systems was performed and is negative for pertinent findings except as documented above in the HPI. - Constitutional Constitutional: no anorexia, no chills, no fever(s), no weakness, no weight gain, no weight loss - EENT Eyes: no floaters, no irritation Ears: decreased hearing - Cardiovascular Cardiovascular ROS IM: no chest pain, no dyspnea, no dyspnea on exertion, no edema, no irregular heart rhythm, no lightheadedness, no palpitations, no paroxysmal nocturnal dyspnea, no syncope - Respiratory Respiratory: no cough, no dyspnea, no dyspnea on exertion, no wheezing, no pain on inspiration, no excessive phlegm production, no change in phlegm color - Gastrointestinal Gastrointestinal: no abdominal pain, no cramping, no diarrhea, no dyspepsia, no melena, no nausea, no vomiting - Genitourinary Genitourinary ROS male: nocturia, no dysuria, no flank pain, no urinary frequency, no urinary hesitancy, no urinary incontinence, no urinary urgency - Musculoskeletal Musculoskeletal ROS IM: back pain (upper back pain. ) - Integumentary Integumentary IM: no rash - Neurological Neurological ROS: weakness (lower extremities. chronic. ), no lack of coordination - Psychiatric Psychiatric: no anxiety, no hopelessness, no irritability - Endocrine Endocrine IM: no polydipsia, no polyphagia, no polyuria - Hematologic/Lymphatic Hematologic/Lymphatic: no easy bruising - Allergic/Immunologic Allergic/Immunologic: no wheezing Additional comments: Rest of the review of system negative. - Constitutional Vitals: Temp Pulse Resp BP Pulse Ox 98.1 F 70 14 160/71 96 06/26/18 12:54 06/26/18 12:54 06/26/18 12:54 06/26/18 12:54 06/26/18 12:54 Exam: Vitals: reviewed. General: Alert and oriented x4. In mild distress due to back pain. Skin: Normal color, no rash, no lesions. HEENT: EOM, pupils equal, round and reactive. Cardiovascular: RRR, normal S1 & S2, no rubs, murmurs or gallops. . Lungs: CTA b/l, no wheezes or crackles. Abdomen: Soft, non-tender, no rigidity. Extremities: strength is 4/5 in the lower extr b/l, 5/5 in the upper extr b/l. Neurological: Normal cognition. No focal neurological deficit. Rest of the physical exam is non contributory - Assessment and plan (1) Compression fracture of lumbar vertebra Current Visit: No Status: Acute Assessment and plan: compression fracture of T12-L1. Plan pain control with norco 5-325mg/PO Q6HRs PRN ortho has been consulted, recommendations appreciated Pt/OT consulted. Doccusate/senna PRN for constipation. Qualifiers: Encounter type: subsequent encounter Lumbar vertebra fracture level: L1 Fracture type: closed Fracture healing: with routine healing Qualified Code(s): S32.010D - Wedge compression fracture of first lumbar vertebra, subsequent encounter for fracture with routine healing (2) DVT prophylaxis Current Visit: Yes Status: Acute Assessment and plan: NO chemical DVT prophylaxis until patient is evaluated by Ortho. Intermittent pneumatic compression (3) HTN (hypertension) Current Visit: No Status: Chronic Assessment and plan: Patient on captopril. Will start lisinopril 10mg/PO daily. Qualifiers: Hypertension type: essential hypertension Qualified Code(s): I10 - Essential (primary) hypertension (4) History of osteoporosis Current Visit: No Status: Chronic (5) Hypothyroid Current Visit: No Status: Chronic Assessment and plan: resume home dose of levothyroxine 12.5mg/PO daily Qualifiers: Hypothyroidism type: acquired Qualified Code(s): E03.9 - Hypothyroidism, unspecified (6) Hx of esophageal malignancy Current Visit: Yes Status: Chronic Assessment and plan: Treated 10 years ago. Per report of CT obtain at [facility] there is a concern about possible metastasis. will obtain a CT abd/pelvis for evaluation. based on CT finding consider consulting Hem&Onc for inpatient evaluation. - Time Spent With Patient Total time spent is greater than 50% in coordination of care (as documented) at patient's floor/unit and/or counseling patient: Greater than 35 minutes (45)
[2018-06-26] MEDS: *HR* HYDROcodone/Acet 5/325 mg TABLET PO PRN ×2 (13:53→20:36)
[2018-06-26 14:21] LABS: Hematocrit 36.3 % (37.5-50.1); Hemoglobin 12.4 g/dL (12.9-16.9); Mean Corpuscular HGB Conc 34.2 g/dL (31.6-35.5); Mean Corpuscular Hemoglobin 32.5 pg (28.0-33.3); Mean Corpuscular Volume 95.3 fL (83.0-100.0); Mean Platelet Volume 8.9 fL (9.4-12.4); Platelet Count 196 K/mcL (140-400); Red Blood Count 3.81 M/mcL (4.19-5.50); Red Cell Distribution Width 12.3 % (11.5-14.5)
[2018-06-26 14:28] LABS: Prothrombin Time 11.2 Seconds (9.4-12.1)
[2018-06-26 14:31] LABS: Activated Partial Thrombo Time 32.9 Seconds (26.0-36.0)
[2018-06-26 14:39] LABS: Alanine Aminotransferase 16 Units/L (7-52); Albumin 3.9 g/dL (3.5-5.7); Albumin/Globulin Ratio 1.8 (1.1-2.2); Alkaline Phosphatase 79 Units/L (34-104); Aspartate Amino Transferase 22 Units/L (13-39); BUN/Creatinine Ratio 17 (6-26); Bilirubin,Total 0.7 mg/dL (0.3-1.0); Blood Urea Nitrogen 12 mg/dL (8-23); Calcium 9.1 mg/dL (8.6-10.3); Carbon Dioxide 25 mEq/L (23-29); Chloride 96 mEq/L (98-107); Chol/HDL Ratio 1.7 (0-4.9); Cholesterol 140 mg/dL (< 200); Globulin 2.2 g/dL (2.4-3.5); Glucose 133 mg/dL (70-105); HDL Cholesterol 81 mg/dL (40-59); LDL Cholesterol,Calculated 51 mg/dL (0-99); Magnesium 1.7 mg/dL (1.6-2.6); Osmolality,Calculated 276 (280-300); Phosphorous 3.2 mg/dL (2.7-4.5); Potassium 3.8 mEq/L (3.5-5.1); Sodium 132 mEq/L (136-145); Total Protein 6.1 g/dL (6.4-8.9); Triglycerides 38 mg/dL (< 150); eGFR For Non-African Americans > 60 (> 60)
[2018-06-26 14:40] LABS: BUN/Creatinine Ratio 17 (6-26); Blood Urea Nitrogen 12 mg/dL (8-23); Calcium 8.9 mg/dL (8.6-10.3); Carbon Dioxide 25 mEq/L (23-29); Chloride 95 mEq/L (98-107); Glucose 131 mg/dL (70-105); Osmolality,Calculated 274 (280-300); Potassium 3.8 mEq/L (3.5-5.1); Sodium 131 mEq/L (136-145); eGFR For Non-African Americans > 60 (> 60)
[2018-06-27] MEDS: *HR* HYDROcodone/Acet 5/325 mg TABLET PO PRN ×2 (03:38→09:37)
[2018-06-27] MEDS: Levothyroxine 25 MCG TABLET PO SCH (06:31)
[2018-06-27] MEDS: Aspirin Enteric Coated 81 MG Tablet PO SCH (09:33)
[2018-06-27] MEDS: Finasteride 5 MG TABLET PO SCH (09:34)
--- NOTE | 2018-06-27 11:08 | Internal Med Progress Note ---
Hospitalist Progress Note - Encounter Date of Encounter: 06/27/18 Time of Encounter: 11:03 - Subjective Interval History: Pt states pain medication he is currently on is not helping control his back pain. He denies fever, chills, N/V or diarrhea. He denies chest pain or SOB. - Exam Vitals: Temp Pulse Resp BP Pulse Ox 98.0 F 64 16 193/94 96 06/27/18 07:51 06/27/18 07:51 06/27/18 07:51 06/27/18 07:51 06/27/18 07:51 Exam: Physical exam: Vitals: reviewed. General: Alert and oriented x4. In mild distress due to back pain. Skin: Normal color, no rash, no lesions. HEENT: EOM, pupils equal, round and reactive. Cardiovascular: RRR, normal S1 & S2, no rubs, positive grade II-IV diastolic murmur but no gallops. . Lungs: CTA b/l, no wheezes or crackles. Abdomen: Soft, non-tender, no rigidity. Extremities: strength is 4/5 in the lower extr b/l, 5/5 in the upper extr b/l. Neurological: Normal cognition. No focal neurological deficit. Musculoskeletal : Pain with flexion of spine or increased ROM. - Assessment and Plan (1) Compression fracture of lumbar vertebra Current Visit: No Status: Acute Assessment and Plan: compression fracture of T12-L1. pain control with norco 5-325mg/PO Q6HRs OSCAR and Morphine 5mg SL Q4H PRN ortho/spine has been consulted, recommendations appreciated PT/OT consulted. Doccusate/senna PRN for constipation. (2) Hypothyroid Current Visit: No Status: Chronic Assessment and Plan: resume home dose of levothyroxine 12.5mg/PO daily (3) HTN (hypertension) Current Visit: No Status: Chronic Assessment and Plan: Patient on captopril at home. Started on isinopril 10mg/PO daily. (4) History of osteoporosis Current Visit: No Status: Chronic (5) Hx of esophageal malignancy Current Visit: Yes Status: Chronic Assessment and Plan: Treated 10 years ago. Per admitting physician report of CT obtained at [facility] stated there is a concern for possible metastasis. CT abd and pelvis done here did not note evidence of metastatic disease. Will review records from [facility]. CT abdomen and pelvis w/o oral or IV contrast CT/CT abd pelvis wo no iv no oral IMPRESSION: 1. The bones are markedly osteopenic. Interval L3 kyphoplasty and prior T12 kyphoplasty. Severe L1 vertebral body compression fracture, markedly progressed compared to 12/10/2017 CT where there is mild superior endplate compression fracture. 2. Mild main pancreatic ductal dilatation, measuring 4 mm, new from prior study. No gross pancreatic head mass identified, however evaluation is compromised by lack of IV contrast. 3. Left adrenal gland nodule measuring 1 x 1.3 cm with density of 18 HU suggesting adenoma. 4. Status post esophagectomy with gastric pull-through. 5. Cardiomegaly and coronary artery calcifications. Aortoiliac atherosclerotic calcifications. 6. Colonic diverticulosis without associated acute inflammatory changes. DVT Prophylaxis: Intermittent pneumatic compression - Summary of Assessment and Plan Summary of Assessment and Plan: History of present illness: Dr. Escamilla Mr. Mcgregor is a 88 year old male past medical history significant for osteoporosis, kyphoplasty 12/29, BPH, hypertension, esophageal cancer treated 10 years ago and hypothyroidism. Patient was transferred to [facility] from [facility] where he presented due to back pain. Patient reported the that yesterday afternoon he started shoveling snow and that at around 4:30pm he started having 10/10 sharp constant upper back pain, as the pain did not go away he went to the ED at [facility]. A CT of the spine was done and patient was diagnosed with compression fracture of T12-L1, for which he was sent to [facility] for further management. Patient reports that he did not fall. denies urinary incontinence or retention, bowel incontinence. denies worsening of his chronic lower extremity weakness. - Time Spent with Patient Total time spent is greater than 50% in coordination of care (as documented) at patient's floor/unit and/or counseling patient: less than 15 minutes Plan of Care Discussed with: family Internal Medicine: Result - Labs CBC & Chem 7: 06/26/18 14:07 06/26/18 14:07 Labs: Short CBC 06/26/18 Range/Units 14:07 WBC 7.4 (4.3-11.1) K/mcL Hgb 12.4 L (12.9-16.9) g/dL Hct 36.3 L (37.5-50.1) % Plt Count 196 (140-400) K/mcL BMP 06/26/18 06/26/18 14:07 14:07 Sodium 132 L 131 L Potassium 3.8 3.8 Chloride 96 L 95 L Carbon Dioxide 25 25 BUN 12 12 Creatinine 0.71 0.70 Glucose 133 H 131 H Calcium 9.1 8.9 Liver Function 06/26/18 Range/Units 14:07 Total Bilirubin 0.7 (0.3-1.0) mg/dL AST 22 (13-39) Units/L ALT 16 (7-52) Units/L Alkaline Phosphatase 79 (34-104) Units/L Albumin 3.9 (3.5-5.7) g/dL - ABG Interpretation ABG results: PT/INR, D-dimer PT 11.2 Seconds (9.4-12.1) 06/26/18 14:07 - Impressions Impressions Abdomen/Pelvis CT 06/26/18 14:04 IMPRESSION: 1. The bones are markedly osteopenic. Interval L3 kyphoplasty and prior T12 kyphoplasty. Severe L1 vertebral body compression fracture, markedly progressed compared to 12/10/2017 CT where there is mild superior endplate compression fracture. 2. Mild main pancreatic ductal dilatation, measuring 4 mm, new from prior study. No gross pancreatic head mass identified, however evaluation is compromised by lack of IV contrast. 3. Left adrenal gland nodule measuring 1 x 1.3 cm with density of 18 HU suggesting adenoma. 4. Status post esophagectomy with gastric pull-through. 5. Cardiomegaly and coronary artery calcifications. Aortoiliac atherosclerotic calcifications. 6. Colonic diverticulosis without associated acute inflammatory changes. D/ / 06/26/2018 15:52:51 Ely Ramos MD / carlos Interpreting Provider: Ely Ramos MD Consult Discharge Plan - Plan Referrals: Kapil Boothe, [Primary Care Provider] - (1) Compression fracture of lumbar vertebra Qualifiers: Encounter type: subsequent encounter Lumbar vertebra fracture level: L1 Fracture type: closed Fracture healing: with routine healing Qualified C ode(s): S32.010D - Wedge compression fracture of first lumbar vertebra, subsequent encounter for fracture with routine healing (2) Hypothyroid Qualifiers: Hypothyroidism type: acquired Qualified Code(s): E03.9 - Hypothyroidism, uns pecified (3) HTN (hypertension) Qualifiers: Hypertension type: essential hypertension Qualified Code(s): I10 - Essential (primary) hypertension
[2018-06-27] MEDS: MORPHINE SUL Oral CONC 10 MG/0.5 ML ORAL.SYG SL PRN ×2 (11:40→18:55)
[2018-06-27] MEDS ORDERED: *HR* HYDROcodone/Acet 5/325 mg TABLET PO SCH (12:00)
[2018-06-27] MEDS: *HR* HYDROcodone/Acet 5/325 mg TABLET PO SCH ×2 (14:46→21:17)
--- NOTE | 2018-06-27 15:21 | Event Note ---
Date of Encounter: 06/27/18 Time of Encounter: 15:19 CT chest done at [facility] showed esophageal carcinoma with suspicion of metastatic disease. Case discussed with oncology and consulted.
--- NOTE | 2018-06-27 16:32 | Oncology Inp Consult Note ---
<TyrelBernabe - Last Filed: 06/27/18 16:37> Date of Encounter: 06/27/18 Time of Encounter: 16:37 - Data of Consult Requesting Physician: Feng Matute MD Primary Care Provider: Kapil Boothe DO Medications and Allergies Calcium Carbonate [Calcium] 1,000 mg PO BID 12/11/17 [History] Captopril [Capoten] 6.25 mg PO HS 12/11/17 [History] Ergocalciferol (VITAMIN D2) [Vitamin D] 400 unit PO DAILY 12/11/17 [History] Ferrous Sulfate [Iron] 325 mg PO DAILY 12/11/17 [History] Finasteride [Proscar] 5 mg PO DAILY 12/11/17 [History] Levothyroxine [Synthroid] 12[place] [address]/11/17 [History] Multivitamin [One Daily Multivitamin] 1 tab PO DAILY 12/11/17 [History] [place]-3/Dha/Epa/Fish Oil [Fish Oil 1,000 mg Softgel] 2 cap PO DAILY 12/11/17 [History] Omeprazole [PriLOSEC] 20 mg PO BID 12/11/17 [History] Simvastatin [Zocor] 40 mg PO HS 12/11/17 [History] Terazosin HCl 10 mg PO DAILY 12/11/17 [History] Allergy/AdvReac Type Severity Reaction Status Date / Time No Known Allergies Allergy Verified 12/11/17 12:19 Consult Discharge Plan - Plan Referrals: Kapil Boothe DO [Primary Care Provider] - Inpatient Charges Provider: Dr. Sun Sarah Consult - Inpatient: [id number] - Attending Attestation I examined this patient and my medical decision-making was reviewed with the Advanced Practice Nurse. I agree with the documented findings, disposition and treatment plan as described except to the extent set forth below. -H/o esophageal cancer s/p esophagectomy in 2007 -Now p/w lower back pain and dysphagia. Patient h/o multiple compression fractures s/p kyphoplasty. Surgery on board, appreciate recommendations. -Will restage patient with CT N/C/A/P w/ contrast, bone scan, and will also check MRI C/T spine w/ contrast -For labs, will check CEA, CA 19-9, B12 level, folate level, and iron studies. -Will await scan results before consulting GI. <Kristy Russo - Last Filed: 06/27/18 17:57> Date of Encounter: 06/27/18 Assessment and Plan (1) Hx of esophageal malignancy Status: Chronic Assessment and plan: Imaging without contrast from OSH noted lymphadenopathy to neck/chest Patient has h/o esophageal cancer treated in 2007 with esophagectomy at [facility], no chemo/rads per patient He does report some mild dysphagia and globus sensation at end of meals Plan: Obtain CT neck/chest/abd/pel with IV contrast, NM bone scan and MRI C/T spine wo and with contrast for staging Anemia workup ordered for AM along with CA 19-9 and CEA Consider consultation with GI pending imaging review---biopsy site is TBD pending imaging review Patient reports pain is adequately controlled currently, continue to monitor He is pending evaluation with spinal surgeon Dr. Humphrey for acute L1 compression fx, he is s/p kyphoplasty L3 12/13/17 - Data of Consult Patient: new to practice Consult date: 06/27/18 Requesting Physician: Feng Matute MD Primary Care Provider: Kapil Boothe DO - Consult Narrative Reason for consult: History of esophageal carcinoma History of present illness: Mr. Mcgregor is an 88 year old male with past medical history significant for osteoporosis, kyphoplasty 12/29, BPH, hypertension, esophageal cancer treated 10 years ago and hypothyroidism. Patient was transferred to [facility] from [facility] where he presented due to back pain. Patient reported the that yesterday afternoon he started shoveling snow and that at around 4:30pm he started having 10/10 sharp constant upper back pain, as the pain did not go away he went to the ED at [facility]. A CT of the spine was done and patient was diagnosed with compression fracture of T12-L1, for which he was sent to [facility] for further management. Patient reports that he did not fall. denies urinary incontinence or retention, bowel incontinence. denies worsening of his chronic lower extremity weakness. Mr. Mcgregor reports a history of esophageal cancer treated in 2007 with esophagectomy. He states he did not receive chemotherapy or radiation. He denies odynophagia, he does report some dysphagia/globus sensation after meals. He also notes some voice changes which he reports as "deepening of his voice." He lives at home alone and performs ADL's independently, still drives car etc.He denies appetite changes, fever, chills, nightsweats, fatigue, nausea, vomiting, bowel changes, abdominal pain, SOB or chest pain. He is a never smoker. Past Med Surg Social Fam HX - Past Medical History Medical history: COPD, diabetes, hypertension, thyroid disease Additional medical history: esophageal cancer. skin cancer Psychiatric history: depression - Past Surgical History Surgical History: cataract, herniorrhaphy, hip replacement, orthopedic, other, vasectomy, other Additional surgical history: kyphoplasty (back), esophageal cancer surgery, skin cancer removed, hemrhoidectomy x2, toe surgery. RTHR. - Social History Smoking Status: Never smoker Smokeless Tobacco Status: No Alcohol use: none Drug use: none - Family History Mother Living Status: Hx Family Cancer: Yes Father Living Status: Hx Family Cancer: Yes (Prostate Cancer) Constitutional: Absent: anorexia, chills, fatigue, fever(s), frequent falls, night sweats, weakness, weight loss Eyes: Absent: blurry vision, change in vision, diplopia Nose, mouth and throat: Present: dysphagia, hoarseness (deepening of voice). Absent: odynophagia Cardiovascular: Absent: chest pain, palpitations Respiratory: Absent: cough, dyspnea, hemoptysis Gastrointestinal: Present: constipation, diarrhea. Absent: abdominal pain, change in bowel habits, hematemesis, hematochezia, melena, nausea, vomiting Genitourinary: Present: as per HPI, urinary hesitancy. Absent: urinary incontinence Additional comments: h/o BPH, chronic and unchanged Musculoskeletal: Present: back pain (acute, which led to admission). Absent: muscle weakness Integumentary: Absent: rash, wounds Neurological: Absent: focal weakness, frequent falls Psychiatric: Present: as per HPI Hematologic/Lymphatic: Present: as per HPI. Absent: easy bleeding, lymphadenopathy Oncology - Exam - Constitutional General appearance: cooperative, no acute distress, no febrile Exam: appears well for noted age, slightly uncomfortable secondary to back pain - Head Head exam: Present: atraumatic - ENT ENT exam: Present: mucous membranes moist, normal oropharynx - Neck Additional comments: no palpable lymphadenopathy on exam - Respiratory Respiratory exam: Present: decreased breath sounds, CTAB. Absent: respiratory distress - Cardiovascular Cardiovascular exam: Present: RRR, +S1, +S2 - GI/Abdominal GI/Abdominal exam: Present: normal bowel sounds, soft. Absent: tenderness - Extremities Exam Extremities exam: Present: normal inspection. Absent: calf tenderness Additional comments: BLE 4/5, BUE 5/5 - Neurological Exam Neurological exam: Present: alert, oriented X3, no focal deficits, strengths equal and symetr throughout - Psychiatric Psychiatric exam: Present: normal affect, normal mood - Skin Skin exam: Present: dry, intact, normal color, warm
[2018-06-27] MEDS ORDERED: Isovue-370 500 ML INFUS..BTL IV ONE (17:24)
[2018-06-27] MEDS ORDERED: Gadolinium Contrast Agent (WT Based) IV PRN (17:58)
--- NOTE | 2018-06-27 19:13 | Spinal Consult Note ---
Date of Encounter: 06/27/18 Time of Encounter: 19:13 Assessment and Plan (1) Compression fracture of lumbar vertebra Current Visit: No Status: Acute On exam he is lying in bed in moderate pain secondary to pain in the back. He is neurovascularly intact with regard to his bilateral lower extremities. He has tenderness to palpation in the thoracolumbar region. His hips move symmetrically. He has no clonus. MRI of the lumbar spine reveals: Acute L1 compression fracture with severe loss of vertebral body height and 2 mm retropulsion of the posterior L1 vertebral body cortex. There is moderate associated spinal canal stenosis. Chronic T12 and L3 compression fractures, status post vertebroplasty. Multilevel degenerative changes of the lumbar spine. There is severe spinal canal stenosis at L2-L3 and L3-L4. Severe multilevel neural foraminal narrowing, including severe bilateral neural foraminal stenosis at L3-L4 and L4-L5. Impression: 1) Osteopenia 2) vertebral compression fracture L1 acute 3) lumbar stenosis Plan: The patient has done well with kyphoplasty previously stating he had significant pain relief immediately after the procedures. Due to his failure of nonoperative treatment and intractable pain and functional disability I find it reasonable consider surgery in the form of a kyphoplasty L1. Risk benefits possible complications and alternatives were discussed and the patient would li ke to proceed. Patient and son who are in the room and agreeable to the plan, understanding that the patient must be medically optimized and cleared prior to surgical intervention. He has a pending echocardiogram tomorrow. If he is cleared we will plan to do procedure on Wednesday. Qualifiers: Encounter type: subsequent encounter Lumbar vertebra fracture level: L1 Fracture type: closed Fracture healing: with routine healing Qualified Code(s): S32.010D - Wedge compression fracture of first lumbar vertebra, subsequent encounter for fracture with routine healing History of Present Illness Chief complaint: Severe back pain HPI: Mr. Mcgregor is a 88 year old male past medical history significant for osteoporosis, kyphoplasty 12/29, BPH, hypertension, esophageal cancer treated 10 years ago and hypothyroidism. Patient was transferred to [facility] from [facility] where he presented due to back pain. Patient reported the that prior to admission he started shoveling snow and that at around 4:30pm he started having 10/10 sharp constant upper back pain, as the pain did not go away he went to the ED at [facility]. A CT of the spine was done and patient was diagnosed with compression fracture. He was sent to [facility] for definitive management. He denies any radicular symptoms in the lower extremities. He denies any fevers or chills. Past Med Surg Social Fam HX - Past Medical History Medical history: COPD, diabetes, hypertension, thyroid disease Additional medical history: esophageal cancer. skin cancer Psychiatric history: depression - Past Surgical History Surgical History: cataract, herniorrhaphy, hip replacement, orthopedic, other, vasectomy, other Additional surgical history: kyphoplasty (back), esophageal cancer surgery, skin cancer removed, hemrhoidectomy x2, toe surgery. RTHR. - Social History Smoking Status: Never smoker Smokeless Tobacco Status: No Alcohol use: none Drug use: none - Family History Mother Living Status: Hx Family Cancer: Yes Father Living Status: Hx Family Cancer: Yes (Prostate Cancer) Medications and Allergies Calcium Carbonate [Calcium] 1,000 mg PO BID 12/11/17 [History] Captopril [Capoten] 6.25 mg PO HS 12/11/17 [History] Ergocalciferol (VITAMIN D2) [Vitamin D] 400 unit PO DAILY 12/11/17 [History] Ferrous Sulfate [Iron] 325 mg PO DAILY 12/11/17 [History] Finasteride [Proscar] 5 mg PO DAILY 12/11/17 [History] Levothyroxine [Synthroid] 12.5 mcg PO 30 12/11/17 [History] Multivitamin [One Daily Multivitamin] 1 tab PO DAILY 12/11/17 [History] [place]-3/Dha/Epa/Fish Oil [Fish Oil 1,000 mg Softgel] 2 cap PO DAILY 12/11/17 [History] Omeprazole [PriLOSEC] 20 mg PO BID 12/11/17 [History] Simvastatin [Zocor] 40 mg PO HS 12/11/17 [History] Terazosin HCl 10 mg PO DAILY 12/11/17 [History] Allergy/AdvReac Type Severity Reaction Status Date / Time No Known Allergies Allergy Verified 12/11/17 12:19 Results - Labs Result Diagrams: 06/26/18 14:07 06/26/18 14:07 Labs: Abnormal lab results RBC 3.81 M/mcL (4.19-5.50) L 06/26/18 14:07 Hgb 12.4 g/dL (12.9-16.9) L 06/26/18 14:07 Hct 36.3 % (37.5-50.1) L 06/26/18 14:07 MPV 8.9 fL (9.4-12.4) L 06/26/18 14:07 Sodium 131 mEq/L (136-145) L 06/26/18 14:07 Chloride 95 mEq/L (98-107) L 06/26/18 14:07 Glucose 131 mg/dL (70-105) H 06/26/18 14:07 Calculated Osmolality 274 (280-300) L 06/26/18 14:07 Serum Total Protein 6.1 g/dL (6.4-8.9) L 06/26/18 14:07 Globulin 2.2 g/dL (2.4-3.5) L 06/26/18 14:07 HDL Cholesterol 81 mg/dL (40-59) H 06/26/18 14:07 All other labs normal. Consult Discharge Plan - Plan Referrals: Kapil Boothe DO [Primary Care Provider] -
[2018-06-28] MEDS: *HR* HYDROcodone/Acet 5/325 mg TABLET PO SCH ×4 (02:59→20:57)
[2018-06-28] MEDS: Levothyroxine 25 MCG TABLET PO SCH (05:33)
[2018-06-28 05:39] LABS: % Iron Saturation 11 % (20-55); Iron 27 mcg/dL (65-175); Lactate Dehydrogenase 147 Units/L (140-271); Transferrin 168 mg/dL (203-362)
[2018-06-28 06:05] LABS: Folate > 22.3 ng/mL (3.0-16.0); Vitamin B12 1252 pg/mL (250-1100)
[2018-06-28] MEDS: Aspirin Enteric Coated 81 MG Tablet PO SCH (09:37)
[2018-06-28] MEDS: Finasteride 5 MG TABLET PO SCH (09:38)
--- NOTE | 2018-06-28 14:30 | Oncology Inp Progress Note ---
<Bernabe Sarah - Last Filed: 06/28/18 16:15> Date of Encounter: 06/28/18 Oncology: Obj Data - Labs CBC & Chem 7: 06/28/18 14:08 06/28/18 14:08 Consult Discharge Plan - Plan Referrals: Kapil Boothe DO [Primary Care Provider] - Inpatient Charges Follow up - Inpatient: [id number] - Attending Attestation I examined this patient and my medical decision-making was reviewed with the Advanced Practice Nurse. I agree with the documented findings, disposition and treatment plan as described except to the extent set forth below. -Planning for L1 kyphoplasty, pending ECHO. -Will plan for IR guided biopsy of thoracic spine lesion, will discuss with IR first -Patient iron deficient, will administer Venofer 250 mg IV -Will c/s GI to evaluate evaluate extensive proximal to mid jejunal inflammatory changes -Will check and Abd US to evaluate for ascites. -PSA, SPEP, CA 19-9 pending. Plan discussed in detail with the patient. <Kristy Russo - Last Filed: 06/28/18 16:24> Date of Encounter: 06/28/18 Time of Encounter: 14:00 (1) Hx of esophageal malignancy Current Visit: Yes Status: Chronic Assessment and plan: Imaging without contrast from OSH noted lymphadenopathy to neck/chest Patient has h/o esophageal cancer treated in 2007 with esophagectomy at [facility] no chemo/rads per patient He does report some mild dysphagia and globus sensation at end of meals CT neck/chest/abdomen/pelvis--- no thoracic abnormality to suggest thoracic metastases, evidence of chronic aspiration, new proximal to mid jejunal inflammatory changes, new mild peritoneal edema, fecal retention, chronic gallbladder distention and biliary dilatation, no abdominopelvic metastatic disease, thoracic/lumbar insufficiency fractures, sclerotic lesions to C2 and T2 suggesting osseous metastases Cervical/Thoracic MRI- multiple osseous metastases, acute pathologic transverse fracture T9 CEA normal 2.7, CA 19-9---pending Plan: Patient increased today, he now has 1-2 tabs [place] Q6H ordered for pain control, continue to monitor effectiveness Reviewed Dr. Humphrey's note-planning for potential L1 kyphoplasty tomorrow pending medical optimization and clearance Findings on imaging is suggestive of bone metastases however, biopsy is needed to confirm. Will arrange for consult to IR for CT guided bone lesion biopsy thoracic spine PSA pending Consult GI for further evaluation of inflammatory changes noted on proximal to mid jejunum and to evaluate peritoneal edema---consider EGD/push enteroscopy. Wi ll order US abdomen for further evaluation of fluid collection/ascites to right side of abdomen Venofer 250 mg IV x1 SPEP and serum free light chains pending Oncology: Subj Interval history: Mr. Mcgregor is resting in bed. He is experiencing increased pain today and his pain medication has been adjusted to allow 1-2 tabs vicodin Q6 hours, this has helped so far. He denies chest pain, SOB, nausea, vomiting, diarrhea, headache, dizziness or urinary complaint. He has chronic constipation, last BM was yesterday morning, his CT does reveal large amount of stool in colon. - Constitutional General appearance: cooperative, no acute distress, no febrile - Head Head exam: Present: atraumatic - ENT ENT exam: Present: mucous membranes moist, normal oropharynx - Respiratory Respiratory exam: Present: decreased breath sounds, CTAB. Absent: respiratory distress - Cardiovascular Cardiovascular exam: Present: diastolic murmur, RRR - GI/Abdominal GI/Abdominal exam: Present: distended, normal bowel sounds, soft. Absent: tende rness Additional comments: abdominal distention with increased edema/fluid collection to right side of abdomen, soft, non tender - Extremities Exam Extremities exam: Present: normal inspection. Absent: calf tenderness - Neurological Exam Neurological exam: Present: alert, oriented X3, no focal deficits, strengths equal and symetr throughout - Psychiatric Psychiatric exam: Present: normal affect, normal mood - Skin Skin exam: Present: dry, intact, normal color, warm Oncology: Obj Data - Labs CBC & Chem 7: 06/28/18 14:08 06/28/18 14:08 Inpatient Charges Provider: Dr. Sun Sarah Follow up - Inpatient: [id number]
[2018-06-28 14:40] LABS: Basophils % 0.1 %; Eosinophils # 0.1 K/mcL (0.0-0.6); Eosinophils % 0.8 %; Hematocrit 35.7 % (37.5-50.1); Immature Granulocytes % 0.4 % (0-4); Lymphocytes # 0.8 K/mcL (0.6-4.6); Lymphocytes % 11.1 %; Mean Corpuscular HGB Conc 33.6 g/dL (31.6-35.5); Mean Corpuscular Hemoglobin 32.3 pg (28.0-33.3); Mean Platelet Volume 9.1 fL (9.4-12.4); Monocytes # 0.7 K/mcL (0.0-1.3); Monocytes % 9.7 %; Neutrophils # 5.8 K/mcL (1.6-8.9); Platelet Count 200 K/mcL (140-400); Red Blood Count 3.72 M/mcL (4.19-5.50); Red Cell Distribution Width 12.8 % (11.5-14.5); Segmented Neutrophils % 77.9 %
[2018-06-28 14:51] LABS: Alanine Aminotransferase 13 Units/L (7-52); Albumin 3.6 g/dL (3.5-5.7); Albumin/Globulin Ratio 1.7 (1.1-2.2); Alkaline Phosphatase 62 Units/L (34-104); Aspartate Amino Transferase 20 Units/L (13-39); BUN/Creatinine Ratio 20 (6-26); Bilirubin,Total 0.5 mg/dL (0.3-1.0); Blood Urea Nitrogen 20 mg/dL (8-23); Calcium 8.6 mg/dL (8.6-10.3); Carbon Dioxide 28 mEq/L (23-29); Chloride 97 mEq/L (98-107); Globulin 2.1 g/dL (2.4-3.5); Glucose 134 mg/dL (70-105); Osmolality,Calculated 279 (280-300); Sodium 132 mEq/L (136-145); Total Protein 5.7 g/dL (6.4-8.9); eGFR For Non-African Americans > 60 (> 60)
--- NOTE | 2018-06-28 16:47 | Electrocardiograph Report ---
[address] [place], [place] [address] Test Date: 2018-06-28 Pat Name: Nessa Mcgregor Department: 115 Room: 3A25 Gender: M Coater: : [id number] Requested By: Ike Humphrey Order Number: [id number] Reading MD: Jessica Wheeler Measurements Intervals [place] Rate: 50 P: 75 NC: 163 QRS: -14 QRSD: 84 T: 30 QT: 494 QTc: 467 Interpretive Statements SINUS BRADYCARDIA WITH SINUS ARRHYTHMIA ANTEROSEPTAL MYOCARDIAL INFARCTION, OF INDETERMINATE AGE Electronically Signed On 06-28-2018 16:45:21 EST by Jessica Wheeler
--- NOTE | 2018-06-28 19:05 | Anesthesia Evaluation PreOp ---
Date of Encounter: 06/28/18 Time of Encounter: 18:50 - Past History Planned Operation: Kyphoplasty L1 Cardiac History: HTN, Hyperlipidemia Pulmonary History: COPD FOUNDER AND PRESIDENT History: Denies Any Significant HX Other Medical History: Thyroid Anesthesia History: No Prior Anesthetic Complications, Past Anesthesia (Kyphoplasty) Alcohol Use: none Drug use: none Medications and Allergies Calcium Carbonate [Calcium] 1,000 mg PO BID 12/11/17 [History] Captopril [Capoten] 6.25 mg PO HS 12/11/17 [History] Ergocalciferol (VITAMIN D2) [Vitamin D] 400 unit PO DAILY 12/11/17 [History] Ferrous Sulfate [Iron] 325 mg PO DAILY 12/11/17 [History] Finasteride [Proscar] 5 mg PO DAILY 12/11/17 [History] Levothyroxine [Synthroid] 12[place] [address]/11/17 [History] Multivitamin [One Daily Multivitamin] 1 tab PO DAILY 12/11/17 [History] [place]-3/Dha/Epa/Fish Oil [Fish Oil 1,000 mg Softgel] 2 cap PO DAILY 12/11/17 [History] Omeprazole [PriLOSEC] 20 mg PO BID 12/11/17 [History] Simvastatin [Zocor] 40 mg PO HS 12/11/17 [History] Terazosin HCl 10 mg PO DAILY 12/11/17 [History] Allergy/AdvReac Type Severity Reaction Status Date / Time No Known Allergies Allergy Verified 12/11/17 12:19 - Meds/Allergy Pre-op Review Medications Reviewed: Yes Allergies Reviewed: Yes Beta Blockers on Current Med List: No Anesthesia Results - Labs 06/28/18 14:08 06/28/18 14:08 - Imaging EKG: report reviewed (SR Occ PVC) Additional studies: ECHO EF 65%, mild , mild pulm htn Anesthesia Exam Vital Signs/O2 Sat/Glucose, Most Current Temp Pulse Resp BP Pulse Ox 06/28/18 18:45 98.1 F 67 15 136/52 94 Height: 5'10 Weight: 130 lbs NPO (# of Hours): MN Pain Scale: 0 - HEENT Pupil (Motor): Pupils equal, EOMI Mallampati: III Teeth: Normal Oral Opening: Less than or equal to 3 - FOUNDER AND PRESIDENT LOC: Oriented [employer]OUND[employer] PRESIDENT Motor: Normal RUE, Normal LUE, Normal Face, Deficit RLE (slight weakness), Deficit LLE [employer]OUNDER AND PRESIDENT Sensory: Normal: RUE, LUE, RLE, LLE, Face - Cardiac Rhythm: Regular Murmur: None JVD: No Carotid Bruit: No - Pulmonary Breath Sounds: bilateral Clear Respiratory Effort: Symmetrical Anesthesia Assess/Plan ASA Score: 3 (COPD DM HTN) Level of consciousness: Cooperative, Oriented Anesthetic Plan: General Autologous Blood: No Monitoring Plan: Standard Monitors Recovery Plan: PACU (Discussed GA, agrees to proceed)
[2018-06-29] MEDS: MORPHINE SUL Oral CONC 10 MG/0.5 ML ORAL.SYG SL PRN ×2 (00:35→20:12)
[2018-06-29] MEDS ORDERED: MORPHINE SUL Oral CONC 10 MG/0.5 ML ORAL.SYG SL PRN (02:04)
[2018-06-29] MEDS: *HR* HYDROcodone/Acet 5/325 mg TABLET PO SCH ×4 (03:20→16:56)
[2018-06-29] MEDS: Levothyroxine 25 MCG TABLET PO SCH (06:11)
--- NOTE | 2018-06-29 09:07 | Internal Med Progress Note ---
Hospitalist Progress Note - Encounter Date of Encounter: 06/28/18 Time of Encounter: 19:00 - Subjective Interval History: SUBJECTIVE: The patient feels pretty good. He has no symptoms at all, when he stays in bed. He has a lot of pain in lower back, when ambulating. Denies difficulty breathing; on room air oxygen. Denies coughing and wheezing. Denies abdominal pain, nausea and vomiting. He has normal urination. OBJECTIVE: Skin: Free of rash and discoloration. ENMT: Oral/pharyngeal mucosa is normal in appearance. Eyes: Sclera is white. There is no discharge from eyes. Respiratory: Normal breath sounds; no crackles or wheezes. CV: Heart is regular; no gallop or murmur. GI: Abdomen is soft and not tender. There is no palpable mass or visceromegaly. Neuro: There is no focal deficits. ADDITIONAL DATA: CBC is normal. He has normal electrolytes. Creatinine is 0.99. MRI of cervical spine and thoracic spine shows multiple lesions suspected of metastasis to bones. ASSESSMENT AND PLAN: Compression fracture of L1 lumbar vertebrae. The patient would benefit from kyphoplasty. 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 He was diagnosed with esophageal cancer about 10 years ago. See notes from oncology. Severe aortic stenosis. Cardiology will be consulted, as he needs clearance for the surgery. He did well during his previous her kyphoplasty done in January 2018. Hypertension. Under control. To continue lisinopril. Hypothyroidism. Clinically under control. To continue Synthroid. - Exam Vitals: Temp Pulse Resp BP Pulse Ox 97.7 F 63 16 170/65 94 06/29/18 07:44 06/29/18 07:44 06/29/18 07:44 06/29/18 07:44 06/29/18 07:44 Exam: xx - Assessment and Plan (1) Compression fracture of lumbar vertebra Current Visit: No Status: Acute (2) Metastatic bone cancer Current Visit: Yes Status: Acute (3) Severe aortic stenosis Current Visit: Yes Status: Acute (4) HTN (hypertension) Current Visit: No Status: Chronic (5) GERD (gastroesophageal reflux disease) Current Visit: No Status: Chronic (6) Hypothyroid Current Visit: No Status: Chronic (7) History of osteoporosis Current Visit: No Status: Chronic (8) Hx of esophageal malignancy Current Visit: Yes Status: Chronic - Time Spent with Patient Total time spent is greater than 50% in coordination of care (as documented) at patient's floor/unit and/or counseling patient: 25 - 35 minutes Plan of Care Discussed with: patient (and family) Internal Medicine: Result - Labs CBC & Chem 7: 06/28/18 14:08 06/28/18 14:08 Labs: Short CBC 06/28/18 Range/Units 14:08 WBC 7.4 (4.3-11.1) K/mcL Hgb 12.0 L (12.9-16.9) g/dL Hct 35.7 L (37.5-50.1) % Plt Count 200 (140-400) K/mcL Neutrophils # 5.8 (1.6-8.9) K/mcL BMP 06/28/18 14:08 Sodium 132 L Potassium 4.0 Chloride 97 L Carbon Dioxide 28 BUN 20 Creatinine 0.99 Glucose 134 H Calcium 8.6 Liver Function 06/28/18 Range/Units 14:08 Total Bilirubin 0.5 (0.3-1.0) mg/dL AST 20 (13-39) Units/L ALT 13 (7-52) Units/L Alkaline Phosphatase 62 (34-104) Units/L Albumin 3.6 (3.5-5.7) g/dL - ABG Interpretation ABG results: PT/INR, D-dimer PT 11.2 Seconds (9.4-12.1) 06/26/18 14:07 - Impressions Impressions Bone Scan Nuclear Medicine 06/27/18 17:26 IMPRESSION: 1. No evidence of skeletal metastatic disease. 2. Increased uptake corresponding to the approximate L1 vertebral fracture D/ / Timothy Briggs MD / Timothy Briggs MD Interpreting Provider: Timothy Briggs MD Chest X-Ray 06/28/18 00:00 IMPRESSION: 1. Mild right basilar atelectasis. 2. T8 compression deformity is again identified. D/ / 06/28/2018 12:29:36 Haven Lopez MD / carlos Interpreting Provider: Haven Lopez MD Echocardiogram 06/28/18 00:00 Impressions: LVEF 60%. Mild left ventricular diastolic dysfunction. Normal LV chamber size, wall thickness and function. Normal right ventricular structure and function. Severely calcified aortic valve leaflets. Moderate-severe aortic stenosis. Peak aortic velocity of 4m/s and mean gradient of 35 mmHg.The estimated aortic valve area was approximately 0.9 cm2. Mild mitral regurgitation. Moderate pulmonary hypertension. The covering hospitalist was notified of aortic valve findings Left Ventricular Wall Motion: Rest Echo Findings All wall segments showed normal motion. Findings: Study Quality * Technically adequate exam. ECG Findings * Normal sinus rhythm. Left Ventricle * LVEF 60%. * Mild left ventricular diastolic dysfunction. * Normal LV chamber size, wall thickness and function. Right Ventricle * Normal right ventricular structure and function. Left Atrium * Normal left atrial size. Right Atrium * Normal right atrial size. Interatrial Septum * No evidence of PFO by color Doppler. Aortic Valve * Aortic valve not well visualized. * Severely calcified aortic valve leaflets. * Moderate-severe aortic stenosis. Peak aortic velocity of 4m/s and mean gradient of 35 mmHg.The estimated aortic valve area was approximately 0.9 cm2. * Mild aortic regurgitation. Mitral Valve * Mild mitral regurgitation. * Moderate mitral annular calcification * No mitral stenosis. Tricuspid Valve * Normal tricuspid valve structure. * Mild tricuspid regurgitation. * Moderate pulmonary hypertension. * Estimated RVSP is 45 mmHg. * Estimated RA pressure is 5 mmHg. Pulmonic Valve * Mild-moderate pulmonic regurgitation. Aorta * Normally sized aortic root. Pericardium * The pericardium appears normal. IVC * Normal IVC dimensions and inspiratory collapse. Pulmonary Artery * Pulmonary artery not well visualized. Abdomen Ultrasound 06/29/18 00:00 IMPRESSION: 1. Gallbladder sludge. No other sonographic findings for acute cholecystitis. 2. Dilated common bile duct correlating with recent CT findings. 3. Coarse liver echotexture, nonspecific and may be related to chronic underlying liver disease. D/ / 06/29/2018 08:47:09 Haven Lopez MD / john Interpreting Provider: Haven Lopez MD Consult Discharge Plan - Plan Referrals: Kapil Boothe, [Primary Care Provider] - __ (1) Compression fracture of lumbar vertebra Qualifiers: Encounter type: subsequent encounter Lumbar vertebra fracture level: L1 Fracture type: closed Fracture healing: with routine healing Qualified Code(s): S32.010D - Wedge compression fracture of first lumbar vertebra, subsequent encounter for fracture with routine healing (4) HTN (hypertension) Qualifiers: Hypertension type: essential hypertension Qualified Code(s): I10 - Essential (primary) hypertension (5) GERD (gastroesophageal reflux disease) Qualifiers: Esophagitis presence: without esophagitis Qualified Code(s): K21.9 - Gastro- esophageal reflux disease without esophagitis (6) Hypothyroid Qualifiers: Hypothyroidism type: acquired Qualified Code(s): E03.9 - Hypothyroidism, unspecified
[2018-06-29] MEDS: Aspirin Enteric Coated 81 MG Tablet PO SCH (10:56)
[2018-06-29] MEDS: Finasteride 5 MG TABLET PO SCH (10:56)
--- NOTE | 2018-06-29 11:06 | Cardiology Consult Note ---
Date of Encounter: 06/29/18 Time of Encounter: 08:25 Assessment and Plan (1) Preop cardiovascular exam Current Visit: Yes Status: Acute Planned for L1 kyphoplasty. Had three back surgeries in the past. He also had two back surgeries in the past two years and tolerated the procedures well. He has severe aortic stenosis but is fairly active and has no reduction in functional capacity which makes him moderate risk for surgical intervention. Although he is at risk for surgical intervention he understands the risk and the procedure will give him better quality of life. (2) Compression fracture of lumbar vertebra Current Visit: No Status: Acute Compression fracture of L1 vertebra. He has previous history of compression fractures and kyphoplasties. Currently spine surgery is following. He is uncomfortable and increasing the quality of life may outweight the risk associated with surgical intervention. Although he is awake of the risks associated with interventions. -Further recommendations from surgery Qualifiers: Encounter type: subsequent encounter Lumbar vertebra fracture level: L1 Fracture type: closed Fracture healing: with routine healing Qualified Code(s): S32.010D - Wedge compression fracture of first lumbar vertebra, subseq uent encounter for fracture with routine healing (3) HTN (hypertension) Current Visit: Yes Status: Acute History of hypertension. He is on lisinipril at home. Currently he is hypertensive and it is likely due to pain. Will suggest not adding additional antihypertensives to prevent further decrease in his flow gradient given he has severe aortic stenosis. Qualifiers: Hypertension type: unspecified Qualified Code(s): I10 - Essential (primary) hypertension (4) Aortic stenosis Current Visit: Yes Status: Acute LVEF is 60% with mild left ventricular diastolic dysfunction. Moderate pulmonary hypertension and severe aortic stenosis. He has a 4/6 grade murmur. He denies any chest pain or recent decline in his physical activity apart from limitation due to back pain -Continue aspirin -Continue simvastatin -Will need outpatient follow up for valve evaluation Qualifiers: Cardiac valve disease etiology: etiology unspecified Qualified Code(s): I35.0 - Nonrheumatic aortic (valve) stenosis Discussion w patient/family: The assessment and plan as outlined above was discussed with the patient and/or family members who expressed understanding and agreement. All questions were answered. Thank you for involving us in the care of your patient. Please call with any questions. History of Present Illness Consult date: 06/29/18 Requesting physician: Iggy Mathis Consult reason: Cardiac clearance for kyphoplasty History of present illness: Mr. Mcgregor is a 88 year old male with past medical history of osteopororsis, BRP, HTN, s/p esophageal cancer treatment 10 years ago and hypothyroidism. He presented to the ED with worsening back pain after shoveling snow. CT of his spine shows compression fracture of T12-L1. He previously has had three back surgeries and notes improvement after the procedures. Spine surgery has been consulted and he is understanding of the risk and benefits associated with the procedure. For cardiac clearance prior to surgical interventions he had an echo conducted inpatient which shows preserved EF but severe aortic stenosis. This morning he is resting in bed and inquiring about the surgery. He is informed of the echo reading and understands due to the findings he is moderate to severe risk for surgical interventions but would like to proceed regardless. He denies shortness of breath, fever, chills, PND or orthopnea. Past Med Surg Social Fam HX - Past Medical History Medical history: COPD, diabetes, hypertension, thyroid disease Additional medical history: esophageal cancer. skin cancer Psychiatric history: depression - Past Surgical History Surgical History: cataract, herniorrhaphy, hip replacement, orthopedic, other, vasectomy, other Additional surgical history: kyphoplasty (back), esophageal cancer surgery, skin cancer removed, hemrhoidectomy x2, toe surgery. RTHR. - Social History Smoking Status: Never smoker Smokeless Tobacco Status: No Alcohol use: none Drug use: none - Family History Mother Living Status: Hx Family Cancer: Yes Father Living Status: Hx Family Cancer: Yes (Prostate Cancer) Medications and Allergies Calcium Carbonate [Calcium] 1,000 mg PO BID 12/11/17 [History] Captopril [Capoten] 6.25 mg PO HS 12/11/17 [History] Ergocalciferol (VITAMIN D2) [Vitamin D] 400 unit PO DAILY 12/11/17 [History] Ferrous Sulfate [Iron] 325 mg PO DAILY 12/11/17 [History] Finasteride [Proscar] 5 mg PO DAILY 12/11/17 [History] Levothyroxine [Synthroid] 12.5 mcg PO 0630 12/11/17 [History] Multivitamin [One Daily Multivitamin] 1 tab PO DAILY 12/11/17 [History] [place]-3/Dha/Epa/Fish Oil [Fish Oil 1,000 mg Softgel] 2 cap PO DAILY 12/11/17 [History] Omeprazole [PriLOSEC] 20 mg PO BID 12/11/17 [History] Simvastatin [Zocor] 40 mg PO HS 12/11/17 [History] Terazosin HCl 10 mg PO DAILY 12/11/17 [History] Allergy/AdvReac Type Severity Reaction Status Date / Time No Known Allergies Allergy Verified 12/11/17 12:19 All Systems Review: The remainder of the systems were reviewed and are negative - Constitutional Constitutional: no chills, no fever(s), no headache(s) - Cardiovascular Cardiovascular: no chest pain at rest, no chest pain with exertion, no dyspnea at rest, no dyspnea on exertion, no orthopnea, no paroxysmal nocturnal dyspnea - Respiratory Respiratory: no cough, no dyspnea, no wheezing - Gastrointestinal Gastrointestinal: no abdominal pain, no nausea - Musculoskeletal Musculoskeletal: back pain - Neurological Neurological: no focal weakness, no numbness, no syncope - Psychiatric Psychiatric: no anxiety, no depression Physical Examination Vital Signs, Last 4 Hours Temp Pulse Resp BP Pulse Ox 06/29/18 07:44 97.7 F 63 16 170/65 94 General: Conversant, No Apparent Distress HEENT: Atraumatic, Normocephaly, Mucus Membranes Moist Neck: No JVD, Normal carotid pulses Cardiac: Reg Rate and Rhythm, Normal S1 and S2, Other (systolic ejection murmur 4/6) Lungs: Normal Breath Sounds, No Wheeze, Rales, Rhonchi Neuro: Alert and responsive, No focal deficits noted Abdomen: Soft, Non-Tender Skin: No rashes noted on visualized skin Musculoskeletal: No Chest Wall Tenderness Extremities: No Cyanosis, No Edema, Normal Pulses Results 06/28/18 14:08 06/28/18 14:08 Lab Results 06/28/18 06/28/18 14:08 14:08 WBC 7.4 Hgb 12.0 L Hct 35.7 L Plt Count 200 Sodium 132 L Potassium 4.0 Chloride 97 L Carbon Dioxide 28 BUN 20 Creatinine 0.99 Glucose 134 H Calcium 8.6 Total Bilirubin 0.5 AST 20 ALT 13 Alkaline Phosphatase 62 Consult Discharge Plan - Plan Referrals: Kapil Boothe DO [Primary Care Provider] -
--- NOTE | 2018-06-29 11:50 | Gastroenterology Consult Note ---
<Celestine Barbosa - Last Filed: 06/29/18 15:49> Date of Encounter: 06/29/18 Time of Encounter: 10:30 - Assessment and plan (1) Jejunal inflammation Current Visit: Yes Status: Acute Assessment and plan: CT abdomen pelvis showed new inflammatory changes of proximal and mid jejunum Patient denies abdominal pain, nausea, vomiting, changes in bowel habits T. bili, AST, ALT, Alk Phos, LDH, CEA are all normal Unsure of etiology at this time, may need push enteroscopy for visualization (2) Abdominal fluid collection Current Visit: Yes Status: Acute Assessment and plan: CT showed evidence of mild peritoneal edema Patient has distended abdomen in RLQ on exam US showed GB sludge, dilated CBD, coarse liver echotexture which may be related to underlying disease - Time Spent With Patient Total time spent is greater than 50% in coordination of care (as documented) at patient's floor/unit and/or counseling patient: GI History of Present Illness - Data of Consult Consult date: 06/29/18 Requesting Physician: Iggy Mathis - Consult Narrative Reason for consult: Inflammation of jejunum on CT with peritoneal edema History of present illness: Mr. Mcgregor is a 88 year old male with PMHx of osteoporosis, HTN, s/p esophageal cancer treated 10 year ago, GERD, hypothyroidism who presented to [place] from [facility] on 06/26 with T12-L1 compression fracture after shoveling snow. GI was consulted for incidental finding of jejunal inflammation and peritoneal edema on CT. The admitting physician from [facility] stated there was concern for metastatic disease with patient's CT scan. Repeat scan at [place] did not show evidence for metastatic disease but was concerning for new inflammation of proximal and mid jejunum with mild peritoneal fluid collection and stable chronic CBD dilation with progressive gallbladder distention without evidence of obstructive neoplasm. Patient has abdominal US for ascites which showed GB sludge, dilated CBD, and coarse liver echotexture, possibly related to underlying disease. Patient seen and examined today. He denies abdominal pain, nausea, vomiting, changes in bowel habits, fevers/chills. Patient states his esophageal cancer was treated at [facility] 10 years ago with surgical resection. He denies radiation or chemotherapy. He denies history of autoimmune disorders and IBD. Patient denies history of ulcers or GI bleeds. Patient's last endoscopy was 01/28 for routine esophageal cancer check, which was normal. He states his last colonoscopy was 3-4 years ago, and believes everything was normal because he was told he can followup in 10 years. Patient denies other personal history of cancer, but states his son was diagnosed with bladder cancer. He denies history of smoking, alcohol, and drug use. Patient does still complain of back pain. He denies SOB, CP, numbness/tingling. Past Med Surg Social Fam HX - Past Medical History Medical history: COPD, diabetes, hypertension, thyroid disease Additional medical history: esophageal cancer. skin cancer Psychiatric history: depression - Past Surgical History Surgical History: cataract, herniorrhaphy, hip replacement, orthopedic, other, vasectomy, other Additional surgical history: kyphoplasty (back), esophageal cancer surgery, skin cancer removed, hemrhoidectomy x2, toe surgery. RTHR. - Social History Smoking Status: Never smoker Smokeless Tobacco Status: No Alcohol use: none Drug use: none - Family History Father Living Status: Hx Family Cancer: Yes (Prostate Cancer) Mother Living Status: Hx Family Cancer: Yes - Constitutional Vitals: Temp Pulse Resp BP Pulse Ox 97.7 F 63 16 170/65 94 06/29/18 07:44 06/29/18 07:44 06/29/18 07:44 06/29/18 07:44 06/29/18 07:44 General appearance: Present: mild distress (from back pain), A&O X 3 - Eye Eye exam: Absent: scleral icterus - Respiratory Respiratory exam: Present: CTAB - Cardiovascular Cardiovascular exam: Present: RRR - GI/Abdominal GI/Abdominal exam: Present: distended (RLQ), normal bowel sounds, soft, no peritoneal signs. Absent: hepatomegaly, rebound, tenderness - Psychiatric Psychiatric exam: Present: normal affect, normal mood - Skin Skin exam: Present: normal color Results - Labs CBC & Chem 7: 06/28/18 14:08 06/28/18 14:08 Labs: Last Result Calcium 8.6 mg/dL (8.6-10.3) 06/28/18 14:08 Iron 27 mcg/dL (65-175) L 06/28/18 04:59 % Saturation 11 % (20-55) L 06/28/18 04:59 Transferrin 168 mg/dL (203-362) L 06/28/18 04:59 Ferritin 286 ng/mL (20-250) H 06/28/18 04:59 Triglycerides 38 mg/dL (< 150) 06/26/18 14:07 Vitamin B12 1252 pg/mL (250-1100) H 06/28/18 04:59 Folate > 22.3 ng/mL (3.0-16.0) H 06/28/18 04:59 Entire Visit Hgb 12.0 g/dL (12.9-16.9) L 06/28/18 14:08 Hct 35.7 % (37.5-50.1) L 06/28/18 14:08 PT 11.2 Seconds (9.4-12.1) 06/26/18 14:07 Ferritin 286 ng/mL (20-250) H 06/28/18 04:59 Total Bilirubin 0.5 mg/dL (0.3-1.0) 06/28/18 14:08 AST 20 Units/L (13-39) 06/28/18 14:08 ALT 13 Units/L (7-52) 06/28/18 14:08 Carcinoembryonic Ag 2.7 ng/mL (Less than 5.0) 06/28/18 04:59 Folate > 22.3 ng/mL (3.0-16.0) H 06/28/18 04:59 - ABG ABG results: PT/INR, D-dimer PT 11.2 Seconds (9.4-12.1) 06/26/18 14:07 - Impressions Impressions Lumbar Spine MRI 06/27/18 10:28 IMPRESSION: Acute L1 compression fracture with severe loss of vertebral body height and 2 mm retropulsion of the posterior L1 vertebral body cortex. There is moderate associated spinal canal stenosis. Chronic T12 and L3 compression fractures, status post vertebroplasty. Multilevel degenerative changes of the lumbar spine. There is severe spinal canal stenosis at L2-L3 and L3-L4. Severe multilevel neural foraminal narrowing, including severe bilateral neural foraminal stenosis at L3-L4 and L4-L5. D/ / 06/27/2018 14:23:45 Rogers Lopez MD / Mónica Tong Interpreting Provider: Rogers Lopez MD Chest X-Ray 06/28/18 00:00 IMPRESSION: 1. Mild right basilar atelectasis. 2. T8 compression deformity is again identified. D/ / 06/28/2018 12:29:36 Haven Lopez MD / carlos Interpreting Provider: Haven Lopez MD Echocardiogram 06/28/18 00:00 Impressions: LVEF 60%. Mild left ventricular diastolic dysfunction. Normal LV chamber size, wall thickness and function. Normal right ventricular structure and function. Severely calcified aortic valve leaflets. Moderate-severe aortic stenosis. Peak aortic velocity of 4m/s and mean gradient of 35 mmHg.The estimated aortic valve area was approximately 0.9 cm2. Mild mitral regurgitation. Moderate pulmonary hypertension. The covering hospitalist was notified of aortic valve findings Left Ventricular Wall Motion: Rest Echo Findings All wall segments showed normal motion. Findings: Study Quality * Technically adequate exam. ECG Findings * Normal sinus rhythm. Left Ventricle * LVEF 60%. * Mild left ventricular diastolic dysfunction. * Normal LV chamber size, wall thickness and function. Right Ventricle * Normal right ventricular structure and function. Left Atrium * Normal left atrial size. Right Atrium * Normal right atrial size. Interatrial Septum * No evidence of PFO by color Doppler. Aortic Valve * Aortic valve not well visualized. * Severely calcified aortic valve leaflets. * Moderate-severe aortic stenosis. Peak aortic velocity of 4m/s and mean gradient of 35 mmHg.The estimated aortic valve area was approximately 0.9 cm2. * Mild aortic regurgitation. Mitral Valve * Mild mitral regurgitation. * Moderate mitral annular calcification * No mitral stenosis. Tricuspid Valve * Normal tricuspid valve structure. * Mild tricuspid regurgitation. * Moderate pulmonary hypertension. * Estimated RVSP is 45 mmHg. * Estimated RA pressure is 5 mmHg. Pulmonic Valve * Mild-moderate pulmonic regurgitation. Aorta * Normally sized aortic root. Pericardium * The pericardium appears normal. IVC * Normal IVC dimensions and inspiratory collapse. Pulmonary Artery * Pulmonary artery not well visualized. Abdomen Ultrasound 06/29/18 00:00 IMPRESSION: 1. Gallbladder sludge. No other sonographic findings for acute cholecystitis. 2. Dilated common bile duct correlating with recent CT findings. 3. Coarse liver echotexture, nonspecific and may be related to chronic underlying liver disease. D/ / 06/29/2018 08:47:09 Haven Lpoez MD / [email or web address] Interpreting Provider: Haven Lopez MD Consult Discharge Plan - Plan Referrals: Kapil Boothe DO [Primary Care Provider] - Bernabe Sarah MD [Partnered Physician] - 07/15/18 2:00 pm <Ari Hilton - Last Filed: 07/01/18 05:55> Date of Encounter: 06/30/18 - Time Spent With Patient Total time spent is greater than 50% in coordination of care (as documented) at patient's floor/unit and/or counseling patient: GI History of Present Illness - Data of Consult Requesting Physician: Iggy Mathis - Consult Narrative History of present illness: Mr. Mcgregor is a 88 year old male - Constitutional Vitals: Temp Pulse Resp BP Pulse Ox 98.3 F 68 16 137/70 93 07/01/18 03:08 07/01/18 03:08 07/01/18 03:08 07/01/18 03:08 07/01/18 03:08 Results - Labs CBC & Chem 7: 06/28/18 14:08 06/28/18 14:08 Labs: Last Result Calcium 8.6 mg/dL (8.6-10.3) 06/28/18 14:08 Iron 27 mcg/dL (65-175) L 06/28/18 04:59 % Saturation 11 % (20-55) L 06/28/18 04:59 Transferrin 168 mg/dL (203-362) L 06/28/18 04:59 Ferritin 286 ng/mL (20-250) H 06/28/18 04:59 Triglycerides 38 mg/dL (< 150) 06/26/18 14:07 Vitamin B12 1252 pg/mL (250-1100) H 06/28/18 04:59 Folate > 22.3 ng/mL (3.0-16.0) H 06/28/18 04:59 Entire Visit Hgb 12.0 g/dL (12.9-16.9) L 06/28/18 14:08 Hct 35.7 % (37.5-50.1) L 06/28/18 14:08 PT 11.2 Seconds (9.4-12.1) 06/26/18 14:07 Ferritin 286 ng/mL (20-250) H 06/28/18 04:59 Total Bilirubin 0.5 mg/dL (0.3-1.0) 06/28/18 14:08 AST 20 Units/L (13-39) 06/28/18 14:08 ALT 13 Units/L (7-52) 06/28/18 14:08 Carcinoembryonic Ag 2.7 ng/mL (Less than 5.0) 06/28/18 04:59 CA 19-9 Antigen 25 U/mL (0-37) 06/28/18 04:59 Folate > 22.3 ng/mL (3.0-16.0) H 06/28/18 04:59 - ABG ABG results: PT/INR, D-dimer PT 11.2 Seconds (9.4-12.1) 06/26/18 14:07 - Attending Attestation I examined this patient and my medical decision-making was reviewed with the Resident Physician. I agree with the documented findings, disposition and treatment plan as described except to the extent set forth below.
[2018-06-29] MEDS ORDERED: Lidocaine -MPF 2% 2 ML VIAL ONE (14:04)
[2018-06-29] MEDS ORDERED: *HR* Succinylcholine 200 MG/10 ML VIAL IVP ONE (14:04)
[2018-06-29] MEDS ORDERED: *HR* FentaNYL (PF) 100 MCG/2 ML VIAL ONE (14:04)
[2018-06-29] MEDS ORDERED: Dexamethasone 4 MG/ML VIAL ONE (14:04)
[2018-06-29] MEDS ORDERED: *HR* Propofol 200 MG/20 ML VIAL IVP ONE (14:04)
[2018-06-29] MEDS ORDERED: Ondansetron 4 MG/2 ML VIAL ONE (14:04)
[2018-06-29] MEDS ORDERED: Lidocaine -MPF 4% 5 ML AMPUL ONE (14:04)
--- NOTE | 2018-06-29 14:32 | Oncology Inp Progress Note ---
<TyrelBernabe - Last Filed: 06/29/18 18:27> Date of Encounter: 06/29/18 Oncology: Obj Data - Labs CBC & Chem 7: 06/28/18 14:08 06/28/18 14:08 Consult Discharge Plan - Plan Referrals: Kapil Boothe DO [Primary Care Provider] - Inpatient Charges Provider: Dr. Sun Sarah Follow up - Inpatient: [id number] - Attending Attestation I examined this patient and my medical decision-making was reviewed with the Advanced Practice Nurse. I agree with the documented findings, disposition and treatment plan as described except to the extent set forth below. -Patient had kyphoplasty done today. -Will c/s general surgery to evaluate gallbladder. -Will have PET/CT done as an outpatient and then plan for biopsy based on results of scan. -Discussed plan in detail with the patient. -We will sign off at this time. -Please call us with any further questions. <Kristy Russo - Last Filed: 06/29/18 18:45> Date of Encounter: 06/29/18 Time of Encounter: 13:00 (1) Hx of esophageal malignancy Current Visit: Yes Status: Chronic Assessment and plan: Imaging without contrast from OSH noted lymphadenopathy to neck/chest Patient has h/o esophageal cancer treated in 2007 with esophagectomy at [facility], no chemo/rads per patient He does report some mild dysphagia and globus sensation at end of meals CT neck/chest/abdomen/pelvis--- no thoracic abnormality to suggest thoracic metastases, evidence of chronic aspiration, new proximal to mid jejunal inflammatory changes, new mild peritoneal edema, fecal retention, chronic gallbladder distention and biliary dilatation, no abdominopelvic metastatic disease, thoracic/lumbar insufficiency fractures, sclerotic lesions to C2 and T2 suggesting osseous metastases Cervical/Thoracic MRI- multiple osseous metastases, acute pathologic transverse fracture T9 CEA normal 2.7, CA 19-9---pending Plan: Patient increased today, he now has 1-2 tabs [place] Q6H ordered for pain control, continue to monitor effectiveness Planned for L1 Kyphoplasty today with Dr. Humphrey, reviewed cervical/thoracic MRI findings with patients sons at bedside, we discussed lesions concerning for osseous metastasis as well as findings of acute pathologic transverse fracture of the T9 vertebral body, patients sons have questions regarding T9 fx and planned kyphoplasty today and would like to discuss further with Dr. Humphrey who was paged Discussed plan for thoracic bone lesion biopsy with IR today, biopsy appears to be of high risk secondary to patients anatomy and kyphosis, will hold on biopsy at this time PSA normal GI has been consulted for further evaluation of inflammatory changes noted on proximal to mid jejunum and to evaluate peritoneal edema---consider EGD/push enteroscopy. Will order US abdomen for further evaluation of fluid collection/ascites to right side of abdomen SPEP and serum free light chains pending At this time, will likely plan for outpatient follow up with PET scan as well as await recommendations from GI for EGD inpatient vs. outpatient. Biopsy site is TBD pending EGD findings and PET scan. We will sign off at this time and arrange for outpatient follow up Oncology: Subj Interval history: Mr. Mcgregor is resting in bed. appears somewhat uncomfortable secondary to back pain. his two sons are at bedside. he denies chest pain, SOB, nausea, vomiting, bowel or urinary complaint. he is planned for kyphoplasty today. no acute events noted overnight. - Constitutional General appearance: cooperative, no acute distress, no febrile Exam: slightly uncomfortable secondary to back pain - Head Head exam: Present: atraumatic - ENT ENT exam: Present: mucous membranes moist, normal oropharynx - Respiratory Respiratory exam: Present: decreased breath sounds, CTAB. Absent: respiratory distress - Cardiovascular Cardiovascular exam: Present: RRR, systolic murmur - GI/Abdominal GI/Abdominal exam: Present: distended, normal bowel sounds, soft. Absent: guarding, rebound, tenderness Additional comments: Right sided abdominal distention - Extremities Exam Extremities exam: Present: normal inspection. Absent: calf tenderness - Neurological Exam Neurological exam: Present: alert, oriented X3, no focal deficits, strengths equal and symetr throughout - Psychiatric Psychiatric exam: Present: normal affect, normal mood - Skin Skin exam: Present: dry, intact, normal color, warm Oncology: Obj Data - Labs CBC & Chem 7: 06/28/18 14:08 06/28/18 14:08 Inpatient Charges Provider: Dr. Sun Sarah
[2018-06-29] MEDS ORDERED: Isovue-M 200 10 ML VIAL ONE (14:55)
--- NOTE | 2018-06-29 15:03 | Spine Progress Note ---
Date of Encounter: 06/29/18 Time of Encounter: 15:01 - Assessment and Plan (1) Compression fracture of lumbar vertebra Current Visit: No Status: Acute Qualifiers: Encounter type: subsequent encounter Lumbar vertebra fracture level: L1 Fracture type: closed Fracture healing: with routine healing Qualified Code(s): S32.010D - Wedge compression fracture of first lumbar vertebra, subsequent encounter for fracture with routine healing Subjective Principal diagnosis: Osteopenia, vertebral compression fracture Interval history: In the interval since last discussion I have also reviewed MRIs of the cervical and thoracic spine as well as whole body bone scan and CT scans of the thoracic and lumbar spine. A long discussion was held with the patient in family members were present. Essentially most of his significant pathology with regard to fracture is occurring at L1. This has increased uptake on bone scan whereas the T9 region does not. This is definitively fractured on CT and MRI scans whereas the thoracic fracture is minimally displaced. In this regard I find it reasonable to proceed with a kyphoplasty of L1 and not do any intervention to the thoracic abnormality. The patient understands and and is amenable to our plan for kyphoplasty of L1. On exam he is awake and alert, has tenderness over the thoracolumbar region, and is grossly neurovascularly intact with regard to his bilateral lower extremities. Afebrile vital signs stable. Objective Vital signs: Vital Signs Temp Pulse Resp BP Pulse Ox 06/29/18 12:16 98.1 F 60 16 158/86 95 06/29/18 07:44 97.7 F 63 16 170/65 94 06/29/18 03:26 98.1 F 60 16 167/82 94 06/28/18 22:54 97.9 F 65 16 132/66 95 06/28/18 18:45 98.1 F 67 15 136/52 94 Intake and Output 06/28/18 06/29/18 06/29/18 23:59 07:59 15:59 Intake Total 120 / 120 Output Total 175 / 175 300 / 300 400 / 400 Balance -55 / -55 -300 / -300 -400 / -400 Intake: Oral 120 / 120 Output: Urine 175 / 175 300 / 300 400 / 400 Other: Meal Dinner NPO Percent of Meal Consumed 20% # Voids 1 - Labs CBC & BMP: 06/28/18 14:08 06/28/18 14:08 Labs: Abnormal lab results RBC 3.72 M/mcL (4.19-5.50) L 06/28/18 14:08 Hgb 12.0 g/dL (12.9-16.9) L 06/28/18 14:08 Hct 35.7 % (37.5-50.1) L 06/28/18 14:08 MPV 9.1 fL (9.4-12.4) L 06/28/18 14:08 Sodium 132 mEq/L (136-145) L 06/28/18 14:08 Chloride 97 mEq/L (98-107) L 06/28/18 14:08 Glucose 134 mg/dL (70-105) H 06/28/18 14:08 Calculated Osmolality 279 (280-300) L 06/28/18 14:08 Iron 27 mcg/dL (65-175) L 06/28/18 04:59 % Saturation 11 % (20-55) L 06/28/18 04:59 Transferrin 168 mg/dL (203-362) L 06/28/18 04:59 Ferritin 286 ng/mL (20-250) H 06/28/18 04:59 Serum Total Protein 5.7 g/dL (6.4-8.9) L 06/28/18 14:08 Globulin 2.1 g/dL (2.4-3.5) L 06/28/18 14:08 HDL Cholesterol 81 mg/dL (40-59) H 06/26/18 14:07 Vitamin B12 1252 pg/mL (250-1100) H 06/28/18 04:59 Folate > 22.3 ng/mL (3.0-16.0) H 06/28/18 04:59 Consult Discharge Plan - Plan Referrals: Kapil Boothe DO [Primary Care Provider] -
[2018-06-29] MEDS ORDERED: EPHEDrine 50 MG/ML VIAL ONE (15:54)
--- NOTE | 2018-06-29 16:22 | Orthopedic Operative Note ---
Date of procedure: 06/29/18 Pre-op diagnosis: Osteopenia, vertebral compression fracture Post-op diagnosis: same Operation/Findings: Kyphoplasty L1: The patient was brought to the operative theater where successful endotracheal anesthesia was performed. The patient was given ant ibiotics prior to the start of the procedure. Compression boots and stockings were used for deep vein thrombosis. Patient was then turned prone on a well- padded Mika table. The back was prepped and draped in the usual sterile fashion. 2 C-arm fluorographic devices were brought into position such that simultaneous AP and lateral views centered over the involved L1 vertebral body could be performed. A stab incision was made over the superior-lateral aspect of the left L1 pedicle. We introduced a Jamshidi needle into the L1 vertebral body via a transpedicular route. We took biplanar images of the vertebral body using fluorography. The needle was found to be in appropriate position and within the confines of the L1 vertebral body. An attempt was made at the biopsy of the L1 vertebral body but insufficient material was obtained. We then removed the biopsy trocar and introduced a Kyphon balloon. The balloon was insufflated to approximately 5 mL volume and subsequently deflated. The balloon was seen to expand within the confines of the L1 vertebral body on biplanar fluorographic views. The balloon was then removed. We then inserted cement trochars and sequentially placed bone cement within the confines of the L1 vertebral body. We took intermittent fluorographic views which confirmed satisfactory placement of the cement. After completion of the cementation process, the trocar was removed. We took final AP and lateral fluorographic views. We then closed the stab incision with 2-0 nylon suture. A Band-Aid was placed over the wound. The patient was turned supine on a hospital bed and extubated. All sponge instrument and needle counts were correct at the end of the procedure. The patient tolerated the procedure well without complications. Anesthesia: GETA Surgeon: Ike Humphrey Jr Was there an family services assistant present: No Estimated blood loss (cc): 2 Specimen: None Condition: stable Disposition: PACU
[2018-06-29] MEDS ORDERED: Ondansetron 4 MG/2 ML VIAL IVP PRN (17:35)
[2018-06-29] MEDS ORDERED: Ringers Solution, Lactated 1,000 ML IVC SCH (17:35)
[2018-06-29] MEDS ORDERED: Iron Sucrose Complex 250 MG in 0.9 % Sodium Chloride 250 ML IVPB ONE (18:00)
--- NOTE | 2018-06-30 00:03 | Internal Med Progress Note ---
Hospitalist Progress Note - Encounter Date of Encounter: 06/29/18 Time of Encounter: 19:00 - Subjective Interval History: SUBJECTIVE: The patient continues to have significant the low back pain, when ambulating. He is cleared by cardiology for kyphoplasty of L1. Denies difficulty breathing; on room air oxygen. Denies coughing and wheezing. Denies abdominal pain, nausea and vomiting. He has normal urination. OBJECTIVE: Skin: Free of rash and discoloration. ENMT: Oral/pharyngeal mucosa is normal in appearance. Eyes: Sclera is white. There is no discharge from eyes. Respiratory: Normal breath sounds; no crackles or wheezes. CV: Heart is regular; no gallop or murmur. GI: Abdomen is soft and not tender. There is significant bulging in the right lower quadrantlikely representing ventral hernia. Neuro: There is no focal deficits. ADDITIONAL DATA: CBC is normal. He has normal electrolytes. Creatinine is 0.99. MRI of cervical spine and thoracic spine shows multiple lesions suspected of metastasis to bones. ASSESSMENT AND PLAN: Compression fracture of L1 lumbar vertebrae. The patient would benefit from kyphoplasty. 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 He was diagnosed with esophageal cancer about 10 years ago. See notes from oncology. Severe aortic stenosis. Cardiology is consulted. The patient is cleared for the kyphoplasty. Hypertension. Under control. To continue lisinopril. Hypothyroidism. Clinically under control. To continue Synthroid. We will see how he does after kyphoplasty. We may consider surgical consult tomorrow. - Exam Vitals: Temp Pulse Resp BP Pulse Ox 97.9 F 88 14 154/64 93 06/29/18 21:11 06/29/18 21:11 06/29/18 21:11 06/29/18 21:11 06/29/18 21:11 Exam: xx - Assessment and Plan (1) Compression fracture of lumbar vertebra Current Visit: No Status: Acute (2) Metastatic bone cancer Current Visit: Yes Status: Acute (3) Severe aortic stenosis Current Visit: Yes Status: Acute (4) HTN (hypertension) Current Visit: No Status: Chronic (5) GERD (gastroesophageal reflux disease) Current Visit: No Status: Chronic (6) Hypothyroid Current Visit: No Status: Chronic (7) History of osteoporosis Current Visit: No Status: Chronic (8) Hx of esophageal malignancy Current Visit: Yes Status: Chronic - Time Spent with Patient Total time spent is greater than 50% in coordination of care (as documented) at patient's floor/unit and/or counseling patient: 25 - 35 minutes Plan of Care Discussed with: patient Internal Medicine: Result - Labs CBC & Chem 7: 06/28/18 14:08 06/28/18 14:08 - ABG Interpretation ABG results: PT/INR, D-dimer PT 11.2 Seconds (9.4-12.1) 06/26/18 14:07 - Impressions Impressions Lumbar Spine MRI 06/27/18 10:28 IMPRESSION: Acute L1 compression fracture with severe loss of vertebral body height and 2 mm retropulsion of the posterior L1 vertebral body cortex. There is moderate associated spinal canal stenosis. Chronic T12 and L3 compression fractures, status post vertebroplasty. Multilevel degenerative changes of the lumbar spine. There is severe spinal canal stenosis at L2-L3 and L3-L4. Severe multilevel neural foraminal narrowing, including severe bilateral neural foraminal stenosis at L3-L4 and L4-L5. D/ / 06/27/2018 14:23:45 Rogers Lopez MD / Mónica Tong Interpreting Provider: Rogers Lopez MD Chest X-Ray 06/28/18 00:00 IMPRESSION: 1. Mild right basilar atelectasis. 2. T8 compression deformity is again identified. D/ / 06/28/2018 12:29:36 Haven Lopez MD / carlos Interpreting Provider: Haven Lopez MD Abdomen Ultrasound 06/29/18 00:00 IMPRESSION: 1. Gallbladder sludge. No other sonographic findings for acute cholecystitis. 2. Dilated common bile duct correlating with recent CT findings. 3. Coarse liver echotexture, nonspecific and may be related to chronic underlying liver disease. D/ / 06/29/2018 08:47:09 Haven Lopez MD / john Interpreting Provider: Haven Lopez MD Fluoroscopy 06/29/18 00:00 IMPRESSION: Intraprocedural fluoroscopic spot images as above. See separate procedure report for more information. D/ / James Honeycutt MD / James Honeycutt MD Interpreting Provider: James Honeycutt MD Lumbar Spine X-Ray 06/29/18 00:00 IMPRESSION: Intraprocedural fluoroscopic spot images as above. See separate procedure report for more information. D/ / James Honeycutt MD / James Honeycutt MD Interpreting Provider: James Honeycutt MD Xray Preliminary Report 06/29/18 00:00 IMPRESSION: Intraprocedural fluoroscopic spot images as above. See separate procedure report for more information. D/ / James Honeycutt MD / James Honeycutt MD Interpreting Provider: James Honeycutt MD Consult Discharge Plan - Plan Referrals: Kapil Boothe, [Primary Care Provider] - (1) Compression fracture of lumbar vertebra Qualifiers: Encounter type: subsequent encounter Lumbar vertebra fracture level: L1 Fracture type: closed Fracture healing: with routine healing Qualified Code(s): S32.010D - Wedge compression fracture of first lumbar vertebra, subsequent encounter for fracture with routine healing (4) HTN (hypertension) Qualifiers: Hypertension type: essential hypertension Qualified Code(s): I10 - Essential (primary) hypertension (5) GERD (gastroesophageal reflux disease) Qualifiers: Esophagitis presence: without esophagitis Qualified Code(s): K21.9 - Gastro- esophageal reflux disease without esophagitis (6) Hypothyroid Qualifiers: Hypothyroidism type: acquired Qualified Code(s): E03.9 - Hypothyroidism, unspecified
[2018-06-30] MEDS: MORPHINE SUL Oral CONC 10 MG/0.5 ML ORAL.SYG SL PRN ×4 (00:18→20:49)
[2018-06-30] MEDS: Levothyroxine 25 MCG TABLET PO SCH (06:52)
[2018-06-30] MEDS: Multivit/Ca/Min/Fe/FA 1 TAB TABLET PO SCH (08:06)
[2018-06-30] MEDS: Finasteride 5 MG TABLET PO SCH (08:06)
[2018-06-30] MEDS: Cholecalciferol (D-3) 1,000 UNIT TABLET PO SCH (08:06)
[2018-06-30] MEDS: (Omega-3/Dha/Epa/Fish Oil [Fish Oil 1,000 Mg Softgel]) PO SCH (10:55)
[2018-06-30] MEDS: *HR* OxyCODONE Immed Rel 5 MG TABLET PO PRN (14:15)
--- NOTE | 2018-06-30 23:42 | Internal Med Progress Note ---
Hospitalist Progress Note - Encounter Date of Encounter: 06/30/18 Time of Encounter: 19:00 - Subjective Interval History: SUBJECTIVE: The patient had L1 kyphoplasty yesterday afternoon. He started physical therapy for ambulation. He feels weak. He is able to ambulate with assistance. He seems to have less pain in lumbar spine. Denies chest pain and difficulty breathing. Denies abdominal pain, nausea and vomiting. OBJECTIVE: Skin: Free of rash and discoloration. ENMT: Oral/pharyngeal mucosa is normal in appearance. Eyes: Sclera is white. There is no discharge from eyes. Respiratory: Normal breath sounds; no crackles or wheezes. CV: Heart is regular; no gallop or murmur. GI: Abdomen is soft and not tender. There is significant bulging in the right lower quadrant, likely representing ventral hernia. Neuro: There is no focal deficits. ADDITIONAL DATA: MRI of cervical spine and thoracic spine shows multiple lesions suspected of metastasis to bones. Ultrasound of right upper quadrant from yesterday revealed some gallbladder sludge. There is no evidence for cholecystitis. It showed dilated common bile duct correlating with recent CT findings. He has a coarse liver echo texture; may be related to chronic underlying liver disease. ASSESSMENT AND PLAN: Compression fracture of L1 lumbar vertebrae. He underwent L1 kyphoplasty y esterday afternoon. We started him on physical therapy today. 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 He was diagnosed with esophageal cancer about 10 years ago. See notes from oncology. The patient will likely benefit from outpatient PET scan. Then, decision will be made about biopsy of one of those bone lesions. Severe aortic stenosis. See notes from cardiology. The patient was cleared for limited surgery (kyphoplasty). Dilated gallbladder/biliary tree; without evidence for obstruction. No evidence for malignancy in the abdomen/pelvis (as per CT of abdomen and pelvis). See not es from GI service. Hypertension. Under control. To continue lisinopril. Hypothyroidism. Clinically under control. To continue Synthroid. We will offer him 1 more day of physical therapy. Hopefully, we will discharge him home tomorrow. The patient does not agree for getting him to [facility]. Ventral hernia, nonsurgical. Due to his severe aortic stenosis. The patient does not have any abdominal symptoms at this time. - Exam Vitals: Temp Pulse Resp BP Pulse Ox 97.9 F 67 14 155/77 93 06/30/18 22:36 06/30/18 22:36 06/30/18 22:36 06/30/18 22:36 06/30/18 22:36 Exam: xx - Assessment and Plan (1) Compression fracture of lumbar vertebra Current Visit: No Status: Acute (2) Metastatic bone cancer Current Visit: Yes Status: Acute (3) Severe aortic stenosis Current Visit: Yes Status: Acute (4) HTN (hypertension) Current Visit: No Status: Chronic (5) GERD (gastroesophageal reflux disease) Current Visit: No Status: Chronic (6) Hypothyroid Current Visit: No Status: Chronic (7) History of osteoporosis Current Visit: No Status: Chronic (8) Hx of esophageal malignancy Current Visit: Yes Status: Chronic (9) Ventral hernia Current Visit: Yes Status: Chronic - Time Spent with Patient Total time spent is greater than 50% in coordination of care (as documented) at patient's floor/unit and/or counseling patient: Internal Medicine: Result - Labs CBC & Chem 7: 06/28/18 14:08 06/28/18 14:08 - ABG Interpretation ABG results: PT/INR, D-dimer PT 11.2 Seconds (9.4-12.1) 06/26/18 14:07 Consult Discharge Plan - Plan Referrals: Kapil Boothe DO [Primary Care Provider] - Bernabe Sarah MD [Partnered Physician] - 07/15/18 2:00 pm (1) Compression fracture of lumbar vertebra Qualifiers: Encounter type: subsequent encounter Lumbar vertebra fracture level: L1 Fracture type: closed Fracture healing: with routine healing Qualified Code(s): S32.010D - Wedge compression fracture of first lumbar vertebra, subsequent encounter for fracture with routine healing (4) HTN (hypertension) Qualifiers: Hypertension type: essential hypertension Qualified Code(s): I10 - Essential (primary) hypertension (5) GERD (gastroesophageal reflux disease) Qualifiers: Esophagitis presence: without esophagitis Qualified Code(s): K21.9 - Gastro- esophageal reflux disease without esophagitis (6) Hypothyroid Qualifiers: Hypothyroidism type: acquired Qualified Code(s): E03.9 - Hypothyroidism, unspecified
[2018-07-01] MEDS: Levothyroxine 25 MCG TABLET PO SCH (05:44)
[2018-07-01] MEDS: *HR* OxyCODONE Immed Rel 5 MG TABLET PO PRN ×2 (06:30→15:29)
[2018-07-01] MEDS: Multivit/Ca/Min/Fe/FA 1 TAB TABLET PO SCH (07:33)
[2018-07-01] MEDS: Cholecalciferol (D-3) 1,000 UNIT TABLET PO SCH (07:33)
[2018-07-01] MEDS: Finasteride 5 MG TABLET PO SCH (07:34)
[2018-07-01] MEDS: (Omega-3/Dha/Epa/Fish Oil [Fish Oil 1,000 Mg Softgel]) PO SCH (07:35)
[2018-07-01] MEDS: MORPHINE SUL Oral CONC 10 MG/0.5 ML ORAL.SYG SL PRN ×2 (07:49→11:55)
[2018-07-01 10:15] LABS: Immunoglobulin A 128 mg/dL (68-408); Immunoglobulin G 666 mg/dL (768-1632); Immunoglobulin M 88 mg/dL (35-263)
[2018-07-01 12:07] LABS: Kappa Qnt Free Light Chains 1.74 mg/dL (0.33-1.94); Lambda Qnt Free Light Chains 1.29 mg/dL (0.57-2.63)
--- NOTE | 2018-07-01 12:24 | Discharge Summary ---
Orders not resulted at time of discharge: Pending orders 06/28/18 04:59 Protein Electrophoresis AM 0400 Serum Free Light Chain [[place] Lambda Qnt FLC w Ratio] AM 0400 Date of Encounter: 07/01/18 Time of Encounter: 12:22 - Discharge Diagnosis (1) Compression fracture of lumbar vertebra Priority: Primary Status: Acute Qualifiers: Encounter type: subsequent encounter Lumbar vertebra fracture level: L1 Fracture type: closed Fracture healing: with routine healing Qualified Code(s): S32.010D - Wedge compression fracture of first lumbar vertebra, subsequent encounter for fracture with routine healing (2) Metastatic bone cancer Priority: Primary Status: Acute (3) Severe aortic stenosis Priority: Primary Status: Acute (4) HTN (hypertension) Priority: Secondary Status: Chronic Qualifiers: Hypertension type: essential hypertension Qualified Code(s): I10 - Essential (primary) hypertension (5) GERD (gastroesophageal reflux disease) Priority: Secondary Status: Chronic Qualifiers: Esophagitis presence: esophagitis presence not specified Qualified Code(s): K21.9 - Gastro-esophageal reflux disease without esophagitis (6) Hypothyroid Priority: Secondary Status: Chronic Qualifiers: Hypothyroidism type: acquired Qualified Code(s): E03.9 - Hypothyroidism, unspecified (7) History of osteoporosis Priority: Secondary Status: Chronic (8) Hx of esophageal malignancy Priority: Secondary Status: Chronic (9) Ventral hernia Priority: Secondary Status: Chronic Qualifiers: Obstruction and gangrene presence: without obstruction or gangrene Qualified Code(s): K43.9 - Ventral hernia without obstruction or gangrene Hospital course: HOSPITAL COURSE: The patient is an 88-year-old male. He was admitted to the hospital with low back pain. It started when he was shoveling snow. We found him to have compression fracture of L1. He had previously kyphoplasty and thoracic spine in December 2017. 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 The patient was consulted by Dr. Ordaz, orthopedic surgery and oncology. Preop evaluation included echocardiogram. It showed severe aortic stenosis. Cardiology was consulted. They cleared him for in limited in intensity kyphoplasty of L1. The procedure was done on June 29. It helped his pain quite a bit. He is able to ambulate on his own again. GI service was consulted as we accidentally found dilated biliary tree without any evidence for obstruction. They did not recommend any particular treatments. The patient seems to have become ventral hernia located in the area of right lower quadrant. He is not a candidate for any surgery due to his severe aortic stenosis. The patient will be evaluated by cardiology and oncology in outpatient settings. He will likely need a PET scan and biopsy of 1 of those lesions in his spine. CONDITION AT DISCHARGE: Feels good. He is able to ambulate on his own. Denies chest pain and difficulty breathing. Skin: Free of rash and discoloration. Respiratory: Normal breath sounds with no crackles and wheezes bilaterally. CV: Heart is regular with no gallop or murmur. GI: Abdomen is flat and soft with no palpable mass or visceromegaly. Neuro exam: There is no focal deficits. Normal speech, swallowing and gait. SEE DISCHARGE ORDERS/MEDICATIONS Discharge discussed with: patient, family, case management - Time Spent with Patient Total time spent providing and/or coordinating discharge services: Greater than 30 minutes (40 minutes...) - Discharge Medications Prescriptions: OxyCODONE Immed Rel [Roxicodone 5 MG] 5 mg PO Q6HR PRN 10 Days #10 tablet PRN Reason: Moderate Pain Pregabalin [Lyrica] 25 mg PO BID 30 Days #60 capsule Home Medications: Calcium Carbonate [Calcium] 1,000 mg PO BID 12/11/17 [History] Captopril [Capoten] 6.25 mg PO HS 12/11/17 [History] Ergocalciferol (VITAMIN D2) [Vitamin D] 400 unit PO DAILY 12/11/17 [History] Ferrous Sulfate [Iron] 325 mg PO DAILY 12/11/17 [History] Finasteride [Proscar] 5 mg PO DAILY 12/11/17 [History] Levothyroxine [Synthroid] 12[place] [address]/11/17 [History] Multivitamin [One Daily Multivitamin] 1 tab PO DAILY 12/11/17 [History] [place]-3/Dha/Epa/Fish Oil [Fish Oil 1,000 mg Softgel] 2 cap PO DAILY 12/11/17 [History] Omeprazole [PriLOSEC] 20 mg PO BID 12/11/17 [History] Simvastatin [Zocor] 40 mg PO HS 12/11/17 [History] Terazosin HCl 10 mg PO DAILY 12/11/17 [History] Docusate [Colace] 200 mg PO BID capsule 07/01/18 [Rx] OxyCODONE Immed Rel [Roxicodone 5 MG] 5 mg PO Q6HR PRN 10 Days #10 tablet 07/01/18 [Rx] Polyethylene Glycol 3350 [MiraLAX] 17 gm PO DAILY PRN powd.pack 07/01/18 [Rx] Pregabalin [Lyrica] 25 mg PO BID 30 Days #60 capsule 07/01/18 [Rx] Allergies/Adverse Reactions: Allergy/AdvReac Type Severity Reaction Status Date / Time No Known Allergies Allergy Verified 12/11/17 12:19 Date of admission: 06/27/18 15:19 Primary care physician: Kapil Boothe DO Consults: 06/28/18 15:43 Consult to Cardiology [CONS] Routine Comment: Consulting Provider: Seven Stewart Reason for Consult: Needs card. clearance for L-1 kyphoplasty. Time Notified: 15:40 Call Completed: Yes 06/29/18 17:35 Consult to Occupational Therapy [CONS] Routine Comment: Evaluate, develop and implement POC Reason for Consult: Postoperative rehabilitation Does patient have active BEDREST order?: No Is patient medically & hemodynamically stable?: Yes Patient assessed for mobility or mobilized this visit?: No Consult to Physical Therapy [CONS] Routine Comment: Evaluate, develop and implement POC Reason for Consult: Postoperative rehabilitation Does patient have active BEDREST order?: No Is patient medically & hemodynamically stable?: Yes Patient assessed for mobility or mobilized this visit?: No 06/30/18 11:31 Consult to [place] [CONS] Routine Reason for SW Consult: DC planning Discharging clinician: Iggy Mathis Anticipated date of discharge: 07/01/18 - Constitutional Vitals: Temp Pulse Resp BP Pulse Ox 97.9 F 72 18 120/70 91 07/01/18 10:35 07/01/18 10:35 07/01/18 10:35 07/01/18 10:35 07/01/18 10:35 General appearance: Present: A&O X 3, no acute distress, answers questions appropriately Exam: xx - Patient Status Disposition: Home, Self-Care Condition: Fair Functional capacity at discharge: independent ambulation Overall status at discharge: patient is progressing back to baseline - Ambulatory Orders Ambulatory Orders: PET CT skull to thigh DX/initi [PE] Time Frame: 07/13/18, Facility: [facility], Location: Radiology - Discharge Instructions Follow Up With: Maxine Talavera PAC [Physician Longwall Foreman] - 07/12/18 2:15 pm Kapil Boothe DO [Primary Care Provider] - Bernabe Sarah MD [Partnered Physician] - 07/15/18 2:00 pm Additional Instructions: FOLLOW-UP WITH CARDIOLOGY -- IN ABOUT 2 WEEKS.. FOLOW-UP WITH ONCOLOGY -- IN 7-14 DAYS.. FOLLOW-UP WITH DR. ORDAZ -- IN ABOUT 1 WEEK.. - Diet and Activity Activity: increase activity as tolerated Diet: advance to your usual diet - VTE Reasons for not Prescribing Prophylaxis: Treatment not Indicated - Low risk for VTE Deep Vein Thrombosis/Pulmonary Embolism Present on Admission: No
[2018-07-01 14:26] VITALS: BP 164/84
--- NOTE | 2018-07-01 14:51 | Physician Discharge Referral ---
ExtendedCare Referral Info Transfer To: F Provider in Charge: Kayla JOHNSON Provider in Charge after Transfer: Other (A SNF PHYSICIAN) Institutional Level of Care: Skilled - Diagnosis (1) Compression fracture of lumbar vertebra Priority: Primary Status: Acute (2) Metastatic bone cancer Priority: Primary Status: Acute (3) Severe aortic stenosis Priority: Primary Status: Acute (4) HTN (hypertension) Priority: Secondary Status: Chronic (5) GERD (gastroesophageal reflux disease) Priority: Secondary Status: Chronic (6) Hypothyroid Priority: Secondary Status: Chronic (7) History of osteoporosis Priority: Secondary Status: Chronic (8) Hx of esophageal malignancy Priority: Secondary Status: Chronic (9) Ventral hernia Priority: Secondary Status: Chronic Prognosis: Fair Aware of Diagnosis: Patient, Family Aware of Prognosis: Patient, Family - Transfer Medications Prescriptions: OxyCODONE Immed Rel [Roxicodone 5 MG] 5 mg PO Q6HR PRN 10 Days #10 tablet PRN Reason: Moderate Pain Pregabalin [Lyrica] 25 mg PO BID 30 Days #60 capsule Home Medications: Calcium Carbonate [Calcium] 1,000 mg PO BID 12/11/17 [History] Captopril [Capoten] 6.25 mg PO HS 12/11/17 [History] Ergocalciferol (VITAMIN D2) [Vitamin D] 400 unit PO DAILY 12/11/17 [History] Ferrous Sulfate [Iron] 325 mg PO DAILY 12/11/17 [History] Finasteride [Proscar] 5 mg PO DAILY 12/11/17 [History] Levothyroxine [Synthroid] 12.5 mcg PO 0612/11/17 [History] Multivitamin [One Daily Multivitamin] 1 tab PO DAILY 12/11/17 [History] [place]-3/Dha/Epa/Fish Oil [Fish Oil 1,000 mg Softgel] 2 cap PO DAILY 12/11/17 [History] Omeprazole [PriLOSEC] 20 mg PO BID 12/11/17 [History] Simvastatin [Zocor] 40 mg PO HS 12/11/17 [History] Terazosin HCl 10 mg PO DAILY 12/11/17 [History] Docusate [Colace] 200 mg PO BID capsule 07/01/18 [Rx] OxyCODONE Immed Rel [Roxicodone 5 MG] 5 mg PO Q6HR PRN 10 Days #10 tablet 07/01/18 [Rx] Polyethylene Glycol 3350 [MiraLAX] 17 gm PO DAILY PRN powd.pack 07/01/18 [Rx] Pregabalin [Lyrica] 25 mg PO BID 30 Days #60 capsule 07/01/18 [Rx] Allergies/Adverse Reactions: Allergy/AdvReac Type Severity Reaction Status Date / Time No Known Allergies Allergy Verified 12/11/17 12:19 - Respiratory Orders None Smoking Cessation: Smoking cessation has been advised. For more information, call the [place] Tobacco Quit Line at 4-572-MLPY-NOW. - Advance Directives Code Status: Full Code - Mobility Orders Ambulate (WITH A WALKER/ASSISTENCE) - Rehabiliation Orders Rehab Potential: Fair Rehab Orders: Evaluation for Physical Therapy, Evaluation for Occupational Therapy - Diet Orders Regular CERTIFICATION: I certify that the transfer of the above named patient to an Extended Care Facility is necessary for the continuing treatment of the diagnosis listed. The above information is true and accurate reflection of patient's current conditio n. Confidential - Redisclosure prohibited without a patient's written consent.
--- NOTE | 2018-07-01 22:08 | Orthopedics Progress Note ---
Date of Encounter: 07/01/18 Time of Encounter: 12:30 - Assessment and Plan (1) Compression fracture of lumbar vertebra Status: Acute Qualifiers: Encounter type: subsequent encounter Lumbar vertebra fracture level: L1 Fracture type: closed Fracture healing: with routine healing Qualified Code(s): S32.010D - Wedge compression fracture of first lumbar vertebra, subsequent encounter for fracture with routine healing (2) Intractable back pain Status: Resolved (3) Osteopenia Status: Chronic Qualifiers: Osteopenia location: lumbar spine Qualified Code(s): M85.88 - Other specified disorders of bone density and structure, other site (4) Status post kyphoplasty Status: Acute Subjective Principal diagnosis: Osteopenia, vertebral compression fracture Interval history: Date of procedure: 06/29/18 Pre-op diagnosis: Osteopenia, vertebral compression fracture Post-op diagnosis: same Operation/Findings: Kyphoplasty L1 Patient doing very well. C/o pain in lower ribs secondary to significant kyphosis. Patient relative at bedside. Patient admits to tenderness about incision area, but denies pain as prior to surgery at this time. The patient is otherwise without complaints. Afebrile vital signs are stable. Dressing is clean dry and intact. Neurovascularly intact with regard to b ilateral lower extremities. Fires all upper and lower extremity motor groups. Assessment :stable. Plan mobilize avoiding bending/twisting at waist, avoid lifting greater than 10lbs ,continue analgesics as needed, remove outer dressings and change daily upon discharge. Cleanse daily and keep clean and dry. Discharge planning: per patient, going to [facility] rehab today. Keep follow up with [facility] as scheduled. Objective Vital signs: Vital Signs Temp Pulse Resp BP Pulse Ox 07/01/18 14:24 97.6 F 82 18 164/84 97 07/01/18 10:35 97.9 F 72 18 120/70 91 07/01/18 07:13 149/80 07/01/18 06:36 97.5 F L 80 18 182/97 95 07/01/18 03:08 98.3 F 68 16 137/70 93 06/30/18 22:36 97.9 F 67 14 155/77 93 Intake and Output 07/01/18 07/01/18 07/01/18 07:59 15:59 23:59 Intake Total 300 / 300 490 / 490 Output Total 675 / 675 250 / 250 Balance -375 / -375 240 / 240 Intake: Oral 300 / 300 490 / 490 Output: Urine 675 / 675 250 / 250 Other: Meal Lunch Percent of Meal Consumed 80% - Labs CBC & BMP: 06/28/18 14:08 06/28/18 14:08 Labs: Abnormal lab results RBC 3.72 M/mcL (4.19-5.50) L 06/28/18 14:08 Hgb 12.0 g/dL (12.9-16.9) L 06/28/18 14:08 Hct 35.7 % (37.5-50.1) L 06/28/18 14:08 MPV 9.1 fL (9.4-12.4) L 06/28/18 14:08 Sodium 132 mEq/L (136-145) L 06/28/18 14:08 Chloride 97 mEq/L (98-107) L 06/28/18 14:08 Glucose 134 mg/dL (70-105) H 06/28/18 14:08 Calculated Osmolality 279 (280-300) L 06/28/18 14:08 Iron 27 mcg/dL (65-175) L 06/28/18 04:59 % Saturation 11 % (20-55) L 06/28/18 04:59 Transferrin 168 mg/dL (203-362) L 06/28/18 04:59 Ferritin 286 ng/mL (20-250) H 06/28/18 04:59 Serum Total Protein 5.7 g/dL (6.4-8.9) L 06/28/18 14:08 Globulin 2.1 g/dL (2.4-3.5) L 06/28/18 14:08 HDL Cholesterol 81 mg/dL (40-59) H 06/26/18 14:07 Vitamin B12 1252 pg/mL (250-1100) H 06/28/18 04:59 Folate > 22.3 ng/mL (3.0-16.0) H 06/28/18 04:59 IgG 666 mg/dL (768-1632) L 06/29/18 06:52 - VTE Reasons for not Prescribing Prophylaxis: Treatment not Indicated - Low risk for VTE Deep Vein Thrombosis/Pulmonary Embolism Present on Admission: No Consult Discharge Plan - Plan Additional Instructions: FOLLOW-UP WITH CARDIOLOGY -- IN ABOUT 2 WEEKS.. FOLOW-UP WITH ONCOLOGY -- IN 7-14 DAYS.. FOLLOW-UP WITH DR. ORDAZ -- IN ABOUT 1 WEEK.. Referrals: Maxine Talavera PAC [Physician Grouter Helper] - 07/12/18 2:15 pm Kapil Boothe DO [Primary Care Provider] - Bernabe Sarah MD [Partnered Physician] - 07/15/18 2:00 pm Prescriptions: OxyCODONE Immed Rel [Roxicodone 5 MG] 5 mg PO Q6HR PRN 10 Days #10 tablet PRN Reason: Moderate Pain Pregabalin [Lyrica] 25 mg PO BID 30 Days #60 capsule
[2018-07-02 02:04] LABS: Alpha 2 Globulin (PEP) 0.87 g/dL (0.48-1.05); Beta Globulin (PEP) 0.51 g/dL (0.48-1.10)
[2018-07-02 08:24] LABS: IFE Reflexed IFE Done; Immunoglobulin A 114 mg/dL (68-408); Immunoglobulin G 637 mg/dL (768-1632); Immunoglobulin M 85 mg/dL (35-263)
== END 2018-07-01 17:10 | disposition home or self-care (01) | DRG 516 ==
LOC: 3ANU → SUATTDRO 06-27 15:19 → 3NENU 06-28 21:06
PROVIDERS: ADMIT Internal Medicine; ATTEND Internal Medicine